=== PATIENT | female | born 1950 | race Hispanic/Latino ===

== ENCOUNTER 2021-01-18 12:41 | Observation (INO) | payer MEDICARE, OTHER ==
--- OUTSIDE RECORDS SUMMARY | 2021-01-18 12:43 | XMS REPORT | Continuity of Care Document ---
:1950 Author Organization [facility] t Address [address] [place] [address] Care Team Providers Name Role Phone Prince CHRISTIANSEN SSheila Primary Care Physician Leon RODNEY Attending Clinician Chong CHRISTIANSEN PhD Attending Clinician Lexie Canas NP Attending Clinician Tram DUBOSE Attending Clinician Unavailable Homer BEARD Attending Clinician Unavailable Kosta RPHomar Attending Clinician Unavailable Provider Attending Clinician Unavailable Prince CHRISTIANSEN SSheila Attending Clinician Tim DUBOSE Attending Clinician Unavailable Collins BLANCO Attending Clinician Pob, Lab Main Attending Clinician Unavailable Doctor Unassigned, Name Attending Clinician Unavailable Payers Payer Name Policy Type Policy Effective Date Expiration Date Sour ce Number [facility] [id number] 2020 [place] MEDICARE(WELLME 00:00:00 Jayy Thornton) A[employer] MEDICARE ADVANTAGE [id number] 07/2020-Present [place] CHAMPVACHAMPVAx [id number] [place] [id number] 00:00:00 [facility] 1-PresentMilibethanie ry Problems Condition Condition Condition Status Onset Resolution Last Treating Co mments Source Name Details Category Date Date Treatment Clinician Date On On Disease Active [place] antineopla antineopla 01-12 Me thodi stic stic 00:00: st chemothera chemothera 00 py py Constipati Constipati Disease Active [place] on on 01-12 Methodi 00:00: st 00 Cholangioc Cholangioc Disease Active [facility] [place] arcinoma arcinoma 11-15 Method i 00:00: st 00 Allergies, Adverse Reactions, Alerts Allergy Allergy Status Severity Reaction(s) Onset Inactive Treating Comm ents Source Name Type Date Date Clinician Sulfa Propensi Active Rash [place] (Sulfona ty to 10-14 Methodi mide adverse 00:00: st Antibiot reaction 00 ics) s to drug Social History Social Habit Start Date Stop Date Quantity Comments Source History SDOH [place] Meth odist Alcohol Std Drinks History SDOH [place] [facility] Alcohol Binge Exposure to Not sure [place] Metho dist SARS-CoV-2 (event) Tobacco use and 2021-01-16 2021-01-16 Never used Eduardo Head ethodist exposure 00:00:00 00:00:00 Alcohol intake 2021-01-16 2021-01-16 Lifetime [facility] Me thodist 00:00:00 00:00:00 non-drinker (finding) History SDOH 2020-10-14 2020-10-14 1 [place] Meth odist Alcohol Frequency 00:00:00 00:00:00 Sex [birth year] Eduardo Head ethodist 00:00:00 00:00:00 Smoking Status Start Date Stop Date Source [facility] Ordered Filled Start Stop Current Ordering Indication Dosage Frequency Signature Comments Components Source Medication Medication Date Date Medication? Clinician (SIG) Name Name traMADoL 2020- No acute pain 50mg Q8H Take 50 mg [facility] (ULTRAM) 50 01-16 by mouth Met hodi mg tablet 14:00: 00:[address] 05 :00 (eight) hours as needed for moderate pain .acute pain. ciprofloxac 2020- Yes Urinary 500mg Q.5D Take 1 [facility] in (Cipro) 01-16 tract tablet Metho di 500 MG 00:00: 23:59 infection ([address] tablet 00 :00 without total) by hematuria, mouth 2 site (two) unspecified times a day for 7 days. lactulose Yes 20g Q.5D Take 30 mL [place] 20 gram/30 6-29 (20 g Methodi mL solution 00:00: total) by s t 00 mouth 2 (two) times a day. sennosides- 2020- No 1{tbl} QD Take 1 [place] docusate 6-29 06-29 tablet by Metho di sodium 00:00: 00:[address] (Senna with 00 :00 daily. Docusate Sodium) 8.6-50 mg per tablet levothyroxi Yes 88ug QD Take 88 [place] st[place] ne 6-16 mcg by Methodi (SYNTHROID) 17:09: mouth st 88 mcg 12 every tablet morning. acetaminoph Yes 500mg Q6H Take 500 [place] en 6-16 mg by [facility] (TYLENOL) 17:09: mouth st 500 MG 12 every 6 tablet (six) hours as needed for mild pain. docusate Yes 100mg Take 100 [place] sodium 100 6-01 mg by [facility] mg capsule 00:00: mouth. st 00 ondansetron Yes Cholangioca 8mg Q8H Take 1 [facility] ODT 5-20 rcinoma tablet (8 Method[facility] (ZOFRAN-ODT 00:00: (HCC) mg total) st ) 8 MG 00 by mouth disintegrat every 8 ing tablet (eight) hours as needed for nausea or vomiting. dexamethaso 2020- No Cholangioca Take 2 [facility] ne 5-20 06-13 rcinoma tablets by Metho di (DECADRON) 00:00: 23:59 (HCC) mouth st 4 MG tablet 00 :00 daily with food for 3 days after each chemothera py Vital Signs Vital Name Observation Time Observation Value Comments Source Body height 2021-01-16 13:57:00 154.9 cm Eduardo Hope Body weight 2021-01-16 13:57:00 66.225 kg Eduardo Hope BMI 2021-01-16 13:57:00 27.59 kg/m2 Eduardo Hope Systolic blood 2021-01-12 10:30:00 142 mm[Hg] Celia Hope pressure Diastolic blood 2021-01-12 10:30:00 65 mm[Hg] Marisa on [facility] pressure Heart rate 2021-01-12 10:30:00 70 /min Eduardo Hope Body temperature 2021-01-12 10:30:00 36 Marilyn Mary Grace blevins [facility] Respiratory rate 2021-01-12 10:30:00 20 /min Mary Grace blveins [facility] Oxygen saturation in 2021-01-12 10:30:00 98 /min Eduardo Hope Arterial blood by Pulse oximetry Procedures Procedure Date / Time Performing Clinician Source Performed COMPREHENSIVE METABOLIC 2021-01-12 10:53:00 Emeka Magaña [facility] PANEL HC COMPLETE BLD COUNT 2021-01-12 10:53:00 Emeka Magaña on [facility] W/AUTO DIFF MAGNESIUM LEVEL 2021-01-12 10:53:00 Emeka Magaña [facility]odist ESTIMATED GFR 2021-01-12 10:53:00 Emeka Magaña [facility] COMPREHENSIVE METABOLIC 2020-12-28 10:33:00 Emeka Magaña [facility] PANEL HC COMPLETE BLD COUNT 2020-12-28 10:33:00 Emeka Magaña on [facility] W/AUTO DIFF MAGNESIUM LEVEL 2020-12-28 10:33:00 Emeka Magaña Met hodist ESTIMATED GFR 2020-12-28 10:33:00 Emeka Magaña Met [facility]odist IR PORT PLACEMENT 2020-12-25 10:53:00 Emeka Magaña ethodist CANCER ANTIGEN 19-9 2020-12-22 14:35:00 Emeka Magaña CARCINOEMBRYONIC ANTIGEN 2020-12-22 14:35:00 Emeka Magaña (CEA) CT CHEST W CONTRAST 2020-11-26 13:04:00 Emeka Magaña HC COMPLETE BLD COUNT 2020-11-26 10:50:00 Emeka Magaña on [facility] W/AUTO DIFF COMPREHENSIVE METABOLIC 2020-11-26 10:50:00 Emeka Magaña [facility] PANEL PROTHROMBIN TIME WITH INR 2020-11-26 10:50:00 Emeka Magaña PARTIAL THROMBOPLASTIN TIME 2020-11-26 10:50:00 Emeka Magaña (PTT) ESTIMATED GFR 2020-11-26 10:50:00 Emeka Magaña Met [facility]ulu SURGICAL PATHOLOGY REQUEST 2020-10-14 13:48:00 Neto Morrison US LIVER BIOPSY 2020-10-14 12:41:00 Neto Morrison Nd [facility]odist CYTOLOGY 2020-10-14 12:00:00 Neto Morrison [facility] (NON-GYNECOLOGICAL) REQUEST MRI ABD/PELVIC EXTERNAL 2020-10-05 00:00:00 Neto Morrison STUDY MRI ABD/PELVIC EXTERNAL 2020-06-18 09:07:00 Neto Morrison STUDY Plan of Care Planned Activity Planned Date Details Comments Source Future Scheduled 2021-02-07 INFLUENZA VACCINE [place] [facility] Test 00:00:00 [code = INFLUENZA VACCINE] Future Scheduled 1998 BREAST CANCER [facility] N[facility] Test 00:00:00 SCREENING [code = BREAST CANCER SCREENING] Future Scheduled 1998 COLONOSCOPY SCREENING [place] [facility] Test 00:00:00 [code = COLONOSCOPY SCREENING] Future Scheduled 1998 SHINGLES VACCINES (#1) [place] [facility] Test 00:00:00 [code = SHINGLES VACCINES (#1)] Future Scheduled 1966 Hepatitis C screening [place] [facility] Test 00:00:00 (procedure) [code = 015239934] Future Scheduled 1960 COVID-19 VACCINE (1) [place] [facility] Test 00:00:00 [code = COVID-19 VACCINE (1)] Future Scheduled 1954 65+ PNEUMOCOCCAL [facility] Test 00:00:00 VACCINE (1 of 2 - PPSV23) [code = 65+ PNEUMOCOCCAL VACCINE (1 of 2 - PPSV23)] Encounters Start End Encounter Admission Attending Care Care Encounter Source Date/Time Date/Time Type Type Clinicians Facility Department ID 2021-01-16 2021-01-16 Outpatient [facility] [id number] [place] 00:00:00 00:00:[address] 2021-01-12 2021-01-12 Outpatient CHONG [facility] [id number] [place] 00:00:00 00:00:00 MACHERI [address] 2020-12-28 2020-12-28 Outpatient ABDELRAHIM, [facility] [id number] [place] 00:00:00 00:00:00 MACHERI [address] 2020-12-25 2020-12-25 Outpatient ABDELRAHIM, [facility] [id number] [place] 00:00:00 00:00:00 EMEKA [address] 2020-12-22 2020-12-22 Outpatient ABDELRAHIM, [facility] [id number] [place] 00:00:00 00:00:00 EMEKA [address] 2020-12-22 2020-12-22 Outpatient ABDELRAHIM, [facility] [id number] [place] 00:00:00 00:00:00 EMEKA [address] 2020-12-14 2020-12-14 Outpatient ABDELRAHIM, [facility] [id number] [place] 00:00:00 00:00:00 EMEKA [address] 2020-11-26 2020-11-26 Outpatient ABDELRAHIM, [facility] [id number] [place] 00:00:00 00:00:00 EMEKA [address] 2020-11-26 2020-11-26 Outpatient ABDELRAHIM, [facility] [id number] [place] 00:00:00 00:00:00 EMEKA [address] 2020-11-12 2020-11-12 Outpatient ABDELRAHIM, [facility] [id number] [place] 00:00:00 00:00:00 EMEKA [address] 2020-11-03 2020-11-03 Outpatient GALATI, [facility] [id number] [place] 00:00:00 00:00:00 NETO [address] 2020-10-14 2020-10-14 Outpatient GALATI, [facility] [id number] [place] 00:00:00 00:00:00 NETO [address] 2020-08-13 2020-08-13 Outpatient GALATI, [facility] [id number] [place] 00:00:00 00:00:00 NETO [address] 2019-09-22 2019-09-22 Telephone Collins MAGENET [id number] 00:00:00 00:00:00 [facility] [id number] Surgical [id number] Specialti [id number] es 370 [place] 2019-09-21 2019-09-21 Urgent Collins MAGENET [id number] 17:16:48 17:31:48 Care [facility] [id number] Surgical [id number] Specialti [id number] es 370 [place] 2019-08-02 2019-08-02 Yarder Puncher Cali Boateng [facility] [id number] 08:09:06 08:24:06 Visit Lab Main [place] [id number] [place] [id number] Professio [id number] [address] 2019-08-02 2019-08-02 Orders Doctor MONIQUE [id number] 00:00:00 00:00:00 Only Unassigned, KATARZYNA [id number] [place] [facility] [id number] [id number] Results Test Test Test Results Result Source Description Time Comments Comments IR Port 2020-12- [facility] Results Incoming - Method ist 13:44:37 12/25/2020 1:47 PM CDT EXAMINATION: IR PORT PLACEMENTCLINICAL HISTORY: C22.1 Intrahepatic bile duct carcinoma, Chemo treatmentCOMPARISON: None.PROCEDURE: Venous port placementProcedural PersonnelAttending physician(s): Yasir Huffman, MOUNIKAre-procedure diagnosis: Intrahepatic cholangiocarcinomaPost-pro cedure diagnosis: SameIndication: Administration of chemotherapyAdditional clinical history: Prior Right mastectomy and axillary lymph node dissection.Complications: No immediate complications.IMPRESSION: Insertion of left-sided power-injectable single-lumen tunneled chest port, with catheter tip in the expected location of the cavoatrial junction.Plan: The port may be used immediately. PROCEDURE SUMMARY:- Venous access with ultrasound guidance- Tunneled port insertion under fluoroscopic guidance- Additional procedure(s): NonePre-procedureHistory and imaging of central venous access reviewed (QCDR): Yes Consent: Informed consent for the procedure including risks, benefits and alternatives was obtained and time-out was performed prior to the procedure.Preparation (MIPS): The site was prepared and draped using all elements of maximal sterile barrier technique including sterile gloves, sterile gown, cap, mask, large sterile sheet, sterile ultrasound probe cover, hand hygiene and cutaneous antisepsis with 2% chlorhexidine. Medical reason for site preparation exception (MIPS): Not applicableAnesthesia/sedat ionLevel of anesthesia/sedation: Moderate sedation (conscious sedation)Anesthesia/sedati on administered by: Independent trained observer under attending supervision with continuous monitoring of the patients level of consciousness and physiologic statusTotal intra-service sedation time (minutes): 32AccessLocal anesthesia was administered. The vessel was sonographically evaluated and determined to be patent. Real time ultrasound was used to visualize needle entry into the vessel and a permanent image was not stored.Vein accessed: Internal jugular veinAccess technique: Micropuncture set with 21 gauge needlePort placementAn incision was made at the upper chest, a pocket was created, and the catheter was tunneled subcutaneously to the venous access site and trimmed to appropriate length. The port was inserted into the pocket and the catheter was advanced via a peel-away sheath into the vein under fluoroscopic guidance. The port was not sutured into the pocket. Catheter tip location was fluoroscopically verified and a permanent image was stored.Port placed: Angi[employer] SmartPortCatheter size (Yi): 8Catheter flush: Heparin (100 units/mL)ClosureThe access site and incision were closed and sterile dressing(s) were applied.Access site closure technique: Tissue adhesiveIncision closure technique: Absorbable suture and tissue adhesivePatient discharged from procedure suite with device accessed: NoContrastContrast agent: NoneContrast volume (mL): 0Radiation DoseReference air kerma (mGy): 6 Additional DetailsAdditional description of procedure: NoneEquipment details: NoneSpecimens removed: NoneEstimated blood loss (mL): Less than 10Standardized report: [id number] CT Chest W 2020-11- [facility], Radiology Homar talamantes Contrast 20 Results Incoming - Method ist 13:54:07 11/26/2020 1:57 PM CDT EXAMINATION: CT CHEST W CONTRASTCLINICAL HISTORY: C22.1 Intrahepatic bile duct carcinoma, stagingTECHNIQUE: Multiple axial images of the chest were obtained following intravenous administration of iodinated contrast. CT imaging was performed with iterative reconstruction technique and/or automated exposure control to reduce radiation dose.COMPARISON: None available.FINDINGS:Lungs and airways: No acute airspace disease. There is a 2 mm nodule in the left lower lobe (series 2, image 82). Pleura: No pleural effusion or pneumothorax.Mediastinum and lymph nodes: No lymphadenopathy. Cardiovascular: Scattered vascular calcifications.Upper abdomen: Moderate biliary ductal dilation in the left hepatic lobe. Ill-defined hypodense lesion in the left hepatic lobe compatible with known cholangiocarcinoma.Musculo skeletal: No suspicious osseous lesions. Right mastectomy and axillary node dissection.IMPRESSION:1.In determinate 2 mm left lower lobe nodule.2.No other evidence to suggest metastatic disease in the chest.3.Ill-defined hypodense left hepatic mass compatible with known cholangiocarcinoma, with moderate upstream biliary ductal dilation.[facility]-[id number] tated and approved by director of residential services/fellow: Rivas German M.D.I, Toi Zapata MD, personally reviewed the images and resident's/fellow's findings and agree with the final report. MRI Abd/Pelvic 2020-10- This exam was not acquired [place] [address] at a [facility] facility [facility] 10:15:37 and has not been interpreted by a [facility] Provider. The exam was imported into our imaging system. Cytology (non-gynecological) request 2020-10-15 12:20:51 Test Item Value Reference Range Interpretation Comme nts Case number (test code = [id number]) [id number] Cytology (non-gynecological) report (test See link below for PDF La b Report code = 1178) Result status (test code = [id number]) This is Final Report for [id number] 1564-2 [facility] [id number] 11:28:57 Test Item Value Reference Range Interpretation Comments Case number (test code = [id number]) Surgical pathology See link below for report (test code = PDF Lab Report 2255) Result status (test code This is Final Report = [id number]) for [id number] Eduardo Atkinson Liver [id number] 18:36:11Hm Interface, Radiology Results Incoming - 10/14/2020 6:39 PM CDTFormatting of this note might be di fferent from the original.PROCEDURE: Image-guided biopsyProcedural PersonnelAttending physician(s): Anuj CastanonPre-procedure diagnosis: Ill- defined left hepatic massPost-procedure diagnosis: SameIndication: Histopathologic diagnosisPrevious biopsy of same target (QCDR): NoAdditional clinical history:NoneComplications: No immediate complications.IMPRESSION:Technically challenging but ultimately successful ultrasound guided biopsy of of an ill-defined left hepatic mass.Plan: Specimen(s) sent for eval uation. PROCEDURE SUMMARY:- Percutaneous ultrasound-guided coaxial core needle biopsy- Additional procedure(s): NonePROCEDURE DETAILS:Pre-procedureReference imaging for biopsy target: MRI abdomen dated 06/18/2020 series 17 image 8Consent: Informed consent for the procedure including risks, benefits and alternatives was obtained and time-out was performed prior to the procedure.Preparation: The site was prepared and draped using maximal sterile barrier technique including cutaneous antisepsis.Anesthesia/sedationLevel of anesthesia/sedation: Moderate sedation (conscious sedation)Anesthesia/sedation administered by: Independent trained observer under attending supervision with continuous monitoring of the patients level of consciousness and physiologic statusTotal intra-service sedation time (minutes): 24Biopsy Local anesthesia was administered. Under imaging guidance as stated in the procedure summary, the biopsy needle was advanced tothe target and biopsy was performed.Coaxial needle: 17 gaugeCore needle biopsy device: Elite Meetings InternationalCore needle size: 18 gaugeNumber of core specimens: 3Fine needle aspiration device: Not applicableFineneedle size: Not applicableNumber of FNA specimens: Not applicableOn-site biopsy touch preparation: Yes Additional sampling recommendations: NonePreliminary assessment of sample adequacy: AdequateNeedle removalThe biopsy needle was removed and a sterile dressing was applied.Tract embolization: Gelfoam slurryContrastContrast agent: NoneContrast volume (mL): 0Radiation DoseNone Additional DetailsAdditional description of procedure: NoneEquipment details: NoneSpecimens removed: Biopsy samples as detailed aboveEstimated blood loss (mL): Less than 10Standardized report: [email or web address] name: Anuj Castanon M.D.I attest that I was present for the entire procedure. I reviewed the stored images and agree with the report as written.[id number] [facility]
--- NOTE | 2021-01-18 15:53 | RAD REPORT ---
EXAM DESCRIPTION: US - Extremity Venous Uni Ltd - 01/18/2021 3:12 pm CLINICAL HISTORY: PAIN COMPARISON: None. TECHNIQUE: Real-time sonographic evaluation of the left lower extremity deep venous system was perfo rmed. FINDINGS: Normal compressibility, flow augmentation, phasic flow and spontaneous flow are identified in the left lower extremity common femoral and superficial femoral veins. Thrombus is present in the left popliteal vein with diminished or absent compression and left posterior tibial vein. No suspici ous finding in the soft tissues of the left leg. IMPRESSION: Acute left leg deep venous thrombosis from popliteal vein at the knee distally to the po sterior tibial vein at the ankle.
[2021-01-18 16:33] LABS: Absolute Lymphocytes (CBC) 1.4 K/uL (0.7-4.9); Basophils % 2.1 % (0-1.3); Hematocrit 30.9 % (36.0-45.0); Lymphocytes % 65.6 % (15.3-44.8); MPV 10.7 fL (7.6-11.3)
[2021-01-18 16:48] LABS: Protime INR 0.94
[2021-01-18 16:52] LABS: ALT/SGPT 40 U/L (12-78); AST/SGOT 24 U/L (15-37); Albumin 3.2 g/dL (3.4-5.0); Alkaline Phosphatase 85 U/L (45-117); BUN Blood Urea Nitrogen 11 mg/dL (7-18); Bicarbonate 27 mmol/L (21-32); Bilirubin Direct < 0.1 mg/dL (0-0.2); Bilirubin Total 0.3 mg/dL (0.2-1.0); Glucose Level 90 mg/dL (74-106); Protein, Total 6.9 g/dL (6.4-8.2); Sodium Level 137 mmol/L (136-145)
[2021-01-18] MEDS ORDERED: ENOXAPARIN 60 MG/0.6 ML SQ ONE (17:24)
--- NOTE | 2021-01-18 17:45 | RAD REPORT ---
EXAM DESCRIPTION: CT - Chest For Pe Angio - 01/18/2021 5:21 pm CLINICAL HISTORY: SOB COMPARISON: No comparisons TECHNIQUE: Dynamically enhanced 3 mm thick images of the chest were obtained during administration o f approximately 150mL Isovue 370 IV contrast. Coronal and oblique MIP reconstruction images were gene rated and reviewed. Exam utilizes a protocol to evaluate the pulmonary arterial tree. All CT scans are performed using dose optimization technique as appropriate and may include automated exposure control or mA/KV adjustment according to patient size. FINDINGS: No pulmonary emboli are identified. The aorta as imaged shows no acute or suspicious finding. No pericardial thickening or effusion. No infiltrate or mass in the lung parenchyma. No pleural effusion or pleural thickening. No mediastinal or hilar suspicious masses. No chest wall masses or abnormal axillary lymphadenopathy. IMPRESSION: No pulmonary emboli identified. No other significant or suspicious findings.
--- NOTE | 2021-01-18 18:43 | EDPHYS ---
Physician Documentation [facility] Name: Simona Klein Age: 70 yrs Sex: Female : 1950 Arrival Date: 01/18/2021 Time: 12:42 Bed 25 Private MD: ED Physician Wesley Martinez HPI: 01/18 14:16 This 70 yrs old Female presents to ER via Wheelchair with complaints of Leg pm1 Pain. 14:16 The patient presents with pain, that is acute. The complaints affect the left calf. pm1 Context: The problem was sustained at home, resulted from an unknown cause, the patient can fully bear weight, the patient is able to ambulate, Problem is a result from a previous injury: No. Onset: The symptoms/episode began/occurred 3 day(s) ago. Modifying factors: The symptoms are alleviated by nothing. the symptoms are aggravated by movement. Associated signs and symptoms: Pertinent positives: calf tenderness, Pertinent negatives fever, numbness, swelling, tingling, warmth. Treatment prior to arrival includes: no previous treatment. Severity of symptoms: in the emergency department the symptoms are unchanged. The patient has not experienced similar symptoms in the past. Historical: - Allergies: 12:52 Sulfa (Sulfonamide Antibiotics); ca1 - PMHx: 12:52 Cancer; Hypothyroidism; ca1 - PSHx: 12:52 mastectomy; ca1 - Immunization history:: Client reports having NOT received the Covid vaccine. Pneumococcal vaccine is up to date, Flu vaccine is not up to date. - Social history:: Smoking status: Patient denies any tobacco usage or history of. ROS: 14:16 Constitutional: Negative for fever, chills, and weight loss. pm1 14:16 Cardiovascular: Negative for chest pain, palpitations, and edema, Respiratory: Negative for shortness of breath, cough, wheezing, and pleuritic chest pain. 14:16 Skin: Negative for injury, rash, and discoloration, Neuro: Negative for headache, weakness, numbness, tingling, and seizure. 14:16 MS/extremity: Positive for pain, of the left calf, Negative for injury or acute deformity, decreased range of motion, deformity. 14:16 All other systems are negative. Exam: 14:16 Constitutional: This is a well developed, well nourished patient who is awake, alert, pm1 and in no acute distress. Head/Face: Normocephalic, atraumatic. 14:16 Skin: Warm, dry with normal turgor. Normal color with no rashes, no lesions, and no evidence of cellulitis. 14:16 Eyes: Exam is negative for acute changes, Periorbital structures: appear normal, Extraocular movements: intact throughout, Conjunctiva: no acute changes, no injection. 14:16 ENT: Mouth: Lips: normal, Oral mucosa: normal, pink and intact, moist. 14:16 Cardiovascular: Rate: normal, Rhythm: regular, Pulses: no pulse deficits are appreciated, Edema: is not appreciated. 14:16 Respiratory: Exam negative for acute changes, respiratory distress, shortness of breath. 14:16 Abdomen/GI: Inspection: abdomen appears normal, Palpation: abdomen is soft and non-tender, in all quadrants. 14:16 Musculoskeletal/extremity: Extremities: grossly normal except: DVT Exam: no swelling, no appreciated bluish discoloration, no erythema, no increased warmth, pain, tenderness. Vital Signs: 12:50 BP 136 / 65; Pulse 80; Resp 17 S; Temp 97.3(TE); Pulse Ox 100% on R/A; Weight 64.86 kg ca1 (R); Height 5 ft. 1 in. (154.94 cm) (R); Pain 9/10; 14:02 BP 110 / 88; Pulse 76; Resp 17; Pulse Ox 100% ; ld1 14:37 BP 108 / 82; Pulse 92; Resp 17; Pulse Ox 99% on R/A; ld1 15:38 BP 127 / 62; Pulse 76; Resp 18; Pulse Ox 100% on R/A; ld1 16:30 BP 138 / 107; Pulse 82; Resp 18; Pulse Ox 100% ; ld1 17:30 BP 133 / 73; Pulse 71; Resp 18; Pulse Ox 100% ; ld1 18:32 BP 144 / 66; Pulse 71; Resp 18; Pulse Ox 100% ; ld1 12:50 Body Mass Index 27.02 (64.86 kg, 154.94 cm) ca1 MDM: 13:56 Patient medically screened. pm1 14:05 ED course: Patient refused pain medications offered. pm1 14:23 Data reviewed: vital signs. Data interpreted: Pulse oximetry: on room air is 100 %. pm1 Interpretation: normal. 15:52 Counseling: I had a detailed discussion with the patient and/or guardian regarding: pm1 radiology results. 16:04 Physician consultation: Emeka Magaña was called at 16:00. pm1 18:38 Physician consultation: Emeka Magaña was contacted at 18:35, regarding consult, pm1 patient's condition, wants the patient to have Lovenox treatment now and observation admission to ensure stability and no development of shortness of breath or PE. When she is discharged would like her to be discharged with Lovenox and will follow up with her. 19:12 Physician consultation: Serafin Brown MD was called at 19:12, was contacted at 19:12, pm1 regarding admission, patient's condition, and will see patient tomorrow, would like medications started, continue lovenox and cipro. Ativan PRN. 01/18 15:45 Order name: CBC with Diff; Complete Time: 19:42 pm1 01/18 15:45 Order name: BMP; Complete Time: 16:57 pm1 01/18 15:45 Order name: LFT's; Complete Time: 16:57 pm1 01/18 15:45 Order name: PT-INR; Complete Time: 16:57 pm1 01/18 19:11 Order name: COVID-19 : Document "Date of Symptom Onset" if Symptomatic. 2 01/18 14:05 Order name: Extremity Venous Uni Ltd US; Complete Time: 15:56 pm1 01/18 16:58 Order name: CT Chest For PE Angio; Complete Time: 17:59 pm1 01/18 19:41 Order name: CBC Smear Scan; Complete Time: 19:42 EDMS 01/18 21:31 Order name: SARS-COV-2 RT PCR; Complete Time: 22:43 EDMS 01/18 15:45 Order name: IV Saline Lock; Complete Time: 16:32 pm1 01/18 16:07 Order name: EKG; Complete Time: 16:07 pm1 01/18 16:07 Order name: EKG - Nurse/Tech; Complete Time: 17:02 pm1 Administered Medications: 17:06 Drug: Lovenox (enoxaparin) 1 mg/kg Route: Sub-Q; Site: abdomen; ld1 18:49 Not Given (Patient Refused): Ativan (LORazepam) 0.5 mg IVP once ld1 19:58 Drug: Potassium Effervescent Tablet 50 mEq Route: PO; ld1 21:23 CANCELLED (Physician Discretion): Zofran (Ondansetron) 4 mg IVP once; over 2 minutes pm1 21:36 Drug: Ativan (LORazepam) 0.5 mg Route: PO; ld1 21:36 Drug: Zofran (Ondansetron) 4 mg Route: PO; ld1 Disposition: 01/19 06:59 Co-signature as Attending Physician, Wesley Martinez MD. rn Disposition Summary: 01/18/21 18:42 Hospitalization Ordered Hospitalization Status: Observation pm1 Location: Telemetry/MedSurg (observation) pm1 Condition: Stable pm1 Problem: new pm1 Symptoms: have improved pm1 Bed/Room Type: Standard pm1 Provider: Serafin Brown(01/18/21 19:13) pm1 Room Assignment: [facility](01/18/21 21:05) Diagnosis - Acute embolism and thrombosis of other specified deep vein of left lower extremity pm1 Forms: - Medication Reconciliation Form pm1 - SBAR form pm1 Signatures: Dispatcher [employer] EDWesley De Jesus MD MD rn Garcia, Cindy, RN RN cg Heriberto Hernandez NP INDUSTRIAL SPECIALIST pm1 Christina Gonzalez RN RN ca1 Andie Curran RN RN ld1 Corrections: (The following items were deleted from the chart) 01/18 12:54 12:52 Allergies: No Known Allergies; ca1 ca1 15:55 14:16 Musculoskeletal/extremity: Extremities: grossly normal except: DVT Exam: no pm1 swelling, no appreciated bluish discoloration, no erythema, no increased warmth, pain, tenderness, pm1 19:13 18:42 Teto Martinez pm1 pm1 20:32 19:12 CORONAVIRUS ordered. EDNC EDMS 21:05 18:42 pm1 cg 21:23 21:23 Zofran (Ondansetron) 4 mg IVP once; over 2 minutes ordered. pm1 pm1
--- NOTE | 2021-01-18 18:43 | ER ---
Nurse's Notes [facility] Name: Simona Klein Age: 70 yrs Sex: Female : 1950 Arrival Date: 01/18/2021 Time: 12:42 Bed 25 Private MD: Diagnosis: Acute embolism and thrombosis of other specified deep vein of left lower extremity Presentation: 01/18 12:50 Chief complaint: Patient states: L leg pain x 2 - 3 days. Denies injury. Pain on L calf ca1 and L ankle. Coronavirus screen: Client denies travel out of the [place] in the last 14 days. At this time, the client does not indicate any symptoms associated with coronavirus-19. Ebola Screen: Patient negative for fever greater than or equal to 101.5 degrees Fahrenheit, and additional compatible Ebola Virus Disease symptoms Patient denies exposure to infectious person. Patient denies travel to an Ebola-affected area in the 21 days before illness onset. No symptoms or risks identified at this time. Initial Sepsis Screen: Does the patient meet any 2 criteria? No. Patient's initial sepsis screen is negative. Does the patient have a suspected source of infection? No. Patient's initial sepsis screen is negative. Risk Assessment: Do you want to hurt yourself or someone else? Patient reports no desire to harm self or others. Onset of symptoms was January 18, 2021. 12:50 Method Of Arrival: Wheelchair ca1 12:50 Acuity: CHANEL 3 ca1 Historical: - Allergies: 12:52 Sulfa (Sulfonamide Antibiotics); ca1 - PMHx: 12:52 Cancer; Hypothyroidism; ca1 - PSHx: 12:52 mastectomy; ca1 - Immunization history:: Client reports having NOT received the Covid vaccine. Pneumococcal vaccine is up to date, Flu vaccine is not up to date. - Social history:: Smoking status: Patient denies any tobacco usage or history of. Screenin:02 Abuse screen: Denies threats or abuse. Denies injuries from another. Nutritional ld1 screening: No deficits noted. Tuberculosis screening: No symptoms or risk factors identified. Fall Risk None identified. Assessment: 14:02 General: Appears in no apparent distress. uncomfortable, Behavior is calm, cooperative, ld1 appropriate for age. Pain: Complains of pain in left leg Pain does not radiate. Pain currently is 7 out of 10 on a pain scale. Quality of pain is described as burning, throbbing, Pain began 1 day ago. Is continuous. Neuro: Level of Consciousness is awake, alert, obeys commands, Oriented to person, place, time, situation, Appropriate for age. Cardiovascular: Capillary refill < 3 seconds Patient's skin is warm and dry. Respiratory: Airway is patent Respiratory effort is even, unlabored, Respiratory pattern is regular, symmetrical. GI: Abdomen is flat, non-distended. : No signs and/or symptoms were reported regarding the genitourinary system. EENT: No signs and/or symptoms were reported regarding the EENT system. Derm: No signs and/or symptoms reported regarding the dermatologic system. Musculoskeletal: No signs and/or symptoms reported regarding the musculoskeletal system. 14:37 Reassessment: Patient appears in no apparent distress at this time. No changes from ld1 previously documented assessment. Patient and/or family updated on plan of care and expected duration. Pain level reassessed. Patient is alert, oriented x 3, equal unlabored respirations, skin warm/dry/pink. 15:37 Reassessment: Patient appears in no apparent distress at this time. Patient and/or ld1 family updated on plan of care and expected duration. Pain level reassessed. Patient is alert, oriented x 3, equal unlabored respirations, skin warm/dry/pink. 16:45 Reassessment: Patient appears in no apparent distress at this time. No changes from ld1 previously documented assessment. 17:50 Reassessment: Patient appears in no apparent distress at this time. Patient and/or ld1 family updated on plan of care and expected duration. Pain level reassessed. Patient denies pain at this time. 18:31 Reassessment: Patient appears in no apparent distress at this time. No changes from ld1 previously documented assessment. Patient and/or family updated on plan of care and expected duration. Pain level reassessed. Patient is alert, oriented x 3, equal unlabored respirations, skin warm/dry/pink. Vital Signs: 12:50 BP 136 / 65; Pulse 80; Resp 17 S; Temp 97.3(TE); Pulse Ox 100% on R/A; Weight 64.86 kg ca1 (R); Height 5 ft. 1 in. (154.94 cm) (R); Pain 9/10; 14:02 BP 110 / 88; Pulse 76; Resp 17; Pulse Ox 100% ; ld1 14:37 BP 108 / 82; Pulse 92; Resp 17; Pulse Ox 99% on R/A; ld1 15:38 BP 127 / 62; Pulse 76; Resp 18; Pulse Ox 100% on R/A; ld1 16:30 BP 138 / 107; Pulse 82; Resp 18; Pulse Ox 100% ; ld1 17:30 BP 133 / 73; Pulse 71; Resp 18; Pulse Ox 100% ; ld1 18:32 BP 144 / 66; Pulse 71; Resp 18; Pulse Ox 100% ; ld1 12:50 Body Mass Index 27.02 (64.86 kg, 154.94 cm) ca1 ED Course: 12:42 Patient arrived in ED. rg4 12:52 Triage completed. ca1 12:52 Arm band placed on right wrist. ca1 13:54 Heriberto Hernandez NP is PHCP. pm1 13:54 Wesley Martinez MD is Attending Physician. pm1 13:54 Andie Curran RN is Primary Nurse. ld1 14:02 Patient has correct armband on for positive identification. Placed in gown. Bed in low ld1 position. Call light in reach. Side rails up X2. monitor worker on. Pulse ox on. NIBP on. 14:02 No provider procedures requiring assistance completed. ld1 15:12 Extremity Venous Uni Ltd US In Process Unspecified. EDMS 16:32 Accessed Port-a-Cath. using accessed w/ #19 Gonzales needle, ,sterile technique, Clean \T\ ld1 dry. Dressing intact. 17:21 CT Chest For PE Angio In Process Unspecified. EDMS 18:40 Teto Martienz PA is Hospitalizing Provider. pm1 19:13 Hospitalizing Provider role handed off by Teto Martinez PA pm1 19:13 Serafin Brown MD is Hospitalizing Provider. pm1 21:48 Patient admitted, IV remains in place. intact, bleeding controlled, No redness/swelling ld1 at site. Administered Medications: 17:06 Drug: Lovenox (enoxaparin) 1 mg/kg Route: Sub-Q; Site: abdomen; ld1 18:49 Not Given (Patient Refused): Ativan (LORazepam) 0.5 mg IVP once ld1 19:58 Drug: Potassium Effervescent Tablet 50 mEq Route: PO; ld1 21:23 CANCELLED (Physician Discretion): Zofran (Ondansetron) 4 mg IVP once; over 2 minutes pm1 21:36 Drug: Ativan (LORazepam) 0.5 mg Route: PO; ld1 21:36 Drug: Zofran (Ondansetron) 4 mg Route: PO; ld1 Outcome: 18:42 Decision to Hospitalize by Provider. pm1 21:47 Admitted to Med/surg accompanied by tech, via wheelchair, room 223, with chart, Report ld1 called to SEDRICK Waller 21:47 Condition: stable 21:48 Patient left the ED. ld1 Signatures: Dispatcher [employer] EDMS Heriberto Hernandez NP [employer]NER pm1 Mily Root rg4 Christina Gonzalez RN RN ca1 Andie Curran RN RN ld1 Corrections: (The following items were deleted from the chart) 12:52 12:50 Chief complaint: Patient states: L leg pain x 2 - 3 days. Denies injury. Pain on ca1 L calf and L ankle. ca1 12:54 12:52 Allergies: No Known Allergies; ca1 ca1
[2021-01-18 19:41] LABS: Blood Morphology Comment NOT SEEN (NOT SEEN); Platelet Estimate ADEQ; White Blood Cell Scan OK (OK)
[2021-01-18] MEDS ORDERED: POTASSIUM 25 MEQ EFFERV TAB ONE (20:17)
[2021-01-18] MEDS ORDERED: LORAZEPAM 0.5 MG TABLET ONE (21:50)
[2021-01-18] MEDS ORDERED: ONDANSETRON 4 MG (ODT) TAB ONE (21:51)
[2021-01-18] MEDS ORDERED: LORAZEPAM 0.5 MG TABLET PO PRN (22:02)
[2021-01-18 22:32] VITALS: BMI 27.0
[2021-01-18] MEDS: NA CHLORIDE 0.9% 1,000 ML IV SCH (22:46)
[2021-01-19] MEDS: ENOXAPARIN 60 MG/0.6 ML SQ SCH ×2 (05:00→17:00)
[2021-01-19] MEDS: CIPROFLOXACIN HCL 500 MG TAB PO SCH ×2 (05:31→17:27)
[2021-01-19 06:12] LABS: Absolute Lymphocytes (CBC) 1.3 K/uL (0.7-4.9); Basophils % 1.7 % (0-1.3); Hematocrit 27.4 % (36.0-45.0); Lymphocytes % 62.1 % (15.3-44.8); MPV 11.4 fL (7.6-11.3); RBC Red Blood Cell Count 3.14 M/uL (3.86-4.86)
[2021-01-19 06:14] LABS: Potassium 3.6 mmol/L (3.5-5.1)
[2021-01-19 07:21] LABS: Blood Morphology Comment NOT SEEN (NOT SEEN); Platelet Estimate ADEQ
[2021-01-19] MEDS: NA CHLORIDE 0.9% 1,000 ML IV SCH ×2 (08:33→17:29)
[2021-01-19] MEDS ORDERED: BISACODYL E.C. 5 MG TAB PO ONE (11:13)
--- NOTE | 2021-01-19 17:00 | PN ---
Date of Progress Note: 01/19/2021 The patient states she feels much better today. She has minimal leg discomfort and basically no othe r symptoms. Discussion was held in regard to use of anticoagulants from the shots to the pills and l ength of usage. The DVT area is not near as tender, has good flexibility, bear weight. We will disc uss the anticoagulation status with her oncologist later today. Depending on the results, we will eit her switch her to p.o. or continue Lovenox overnight. HR/MODL Voice ID: [id number] Report ID: [id number]
--- NOTE | 2021-01-19 17:01 | HP ---
Date of Admission: 01/18/2021 Entrance Complaint: Painful leg. History Of Present Illness: The patient noticed some leg discomfort and presented to the emergency r oom at which time a DVT was diagnosed on ultrasound. 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 She has had 2 treatments. Has not had prior history of DVT. DICTATION ENDS HERE. HR/MODL Voice ID: [id number]
--- NOTE | 2021-01-19 19:17 | EKG ---
Test Date: 2021-01-18 Test Time: 16:40:45 Intelligence Applications: ERWIN MEASUREMENT RESULTS: Intervals: Rate: 71 MN: 174 QRSD: 86 QT: 380 QTc: 412 [place]: P: 64 MN: 174 QRS: 42 T: 42 INTERPRETIVE STATEMENTS: Normal sinus rhythm Normal ECG Compared to ECG 07/08/2002 15:56:00 Atrial abnormality no longer present Electronically Signed On 01-19-21 19:13:50 CDT by Shahid Jean
--- NOTE | 2021-01-20 00:46 | HP ---
Date of Admission: 01/18/2021 Continuation: Physical Examination: General: Patient is an elderly female, uncomfortable appearing but no acute distress with stable vit al signs. Head and Neck: Normocephalic. Pupils equally reactive to light and accommodation. Fundi negative. Trachea midline. Thyroid not palpable. ENT: Negative. Chest: Clear to P and A. Cardiovascular: PMI in midclavicular line. Heart: Sounds normal. Extremities: Peripheral pulses present and equal bilaterally. Abdomen: No organomegaly. Bowel sounds present. Extremities: Good tone and movement bilaterally. Reflexes physiologic. However, there is marked tenderness in the calf on the left lower leg and incr eased discomfort with flexion to the ankle joint. Rectal/Pelvic: Deferred. Impression: Acute deep venous thrombosis, hepatobiliary carcinoma. Plan: Patient will be admitted. Discussion of the case was made with the oncologist. She was start ed on Lovenox, and depending on the response, this was switched over to the p.o. medication. Patient is slated for other round of chemotherapy in approximately 10 days. HR/MODL Voice ID: [id number]
[2021-01-20] MEDS: ENOXAPARIN 60 MG/0.6 ML SQ SCH (05:00)
[2021-01-20] MEDS: NA CHLORIDE 0.9% 1,000 ML IV SCH ×2 (05:23→13:07)
[2021-01-20] MEDS: CIPROFLOXACIN HCL 500 MG TAB PO SCH (05:23)
[2021-01-20] MEDS ORDERED: DOCUSATE NA 100 MG CAP PO PRN (08:37)
[2021-01-20] MEDS ORDERED: APIXABAN 5 MG TABLET PO SCH (09:00)
[2021-01-20 10:27] VITALS: O2SAT 100
[2021-01-20 16:11] VITALS: BP 148/67; TEMP 97.4
[2021-01-20] MEDS ORDERED: HEPARIN 500 UNIT/5 ML SYR IV PRN (16:42)
--- NOTE | 2021-01-20 21:53 | PN ---
Date of Progress Note: 01/20/2021 The patient is feeling much better. There is minimal discomfort on palpation of the left calf in marisela siflexion. She has tolerated the Eliquis and will discharge on 10 mg b.i.d. Eliquis and follow up in 5 days, which is 1 day prior to her next scheduled chemo. HR/MODL Voice ID: [id number] Report ID: [id number]
== END 2021-01-20 18:00 | disposition home or self-care (01) ==
LOC: ER 12:41 → UNDOADMOB 19:01 → ERHOLD 19:01 → 2ND 21:23
PROVIDERS: ADMIT Family Medicine; ATTEND Family Medicine
DX: I82.4Z2 Acute embolism and thrombosis of unspecified deep veins of left distal lower extremity (principal); C24.9 Malignant neoplasm of biliary tract, unspecified; E03.9 Hypothyroidism, unspecified; Z88.2 Allergy status to sulfonamides; Z85.9 Personal history of malignant neoplasm, unspecified; Z90.10 Acquired absence of unspecified breast and nipple; Z20.822 Contact with and (suspected) exposure to COVID-19
CPT/HCPCS: 93005; 85025 ×2; 80048 ×2; 36415; 85610; 80076; 71275; 93971; U0003; Q9967; J1650 ×4; J1642; J7030 ×4; 96372; 99285; G0378

== ENCOUNTER 2021-01-22 10:58 | Emergency (ER) | payer MEDICARE, OTHER ==
--- OUTSIDE RECORDS SUMMARY | 2021-01-22 11:04 | XMS REPORT | Continuity of Care Document ---
:[address] [facility] t Address [address] [place] [address] Care Team Providers Name Role Phone Prince [...] Effective Date Expiration Date Sour ce Number [facility] [id number] 2020 [place] MEDICARE(WELLME 00:00:00 Jayy Thornton) AARP MEDICARE ADVANTAGE [id number] 07/2020-Present [place] CHAMPVACHAMPVAx [id number] 2020 [place] [id number] 00:00:00 [facility] 1-PresentMilibethanie ry Problems Condition Condition Condition Status Onset Resolution Last Treating Co mments Source Name Details Category Date Date Treatment Clinician Date On On Disease Active [place] antineopla antineopla 01-12 Me thodi stic stic [...] Date Date Clinician Sulfa Propensi Active Rash [place] (Sulfona ty to 10-14 Methodi mide adverse 00:00: st Antibiot reaction 00 ics) s to drug Social History Social Habit Start Date Stop Date Quantity Comments Source History SDOH [place] Meth odist Alcohol Std Drinks History SDOH [place] [facility] Alcohol Binge Exposure to Not sure [place] [facility] SARS-CoV-2 (event) Tobacco use and 2021-01-16 2021-01-16 Never used Eduardo Head ethodist exposure 00:00:00 00:00:00 Alcohol intake 2021-01-16 2021-01-16 Lifetime [facility] 00:00:00 00:00:00 non-drinker (finding) History SDOH 2020-10-14 2020-10-14 1 [place] [facility] Alcohol Frequency 00:00:00 00:00:00 Sex [birth year] At [birth year] Eduardo Head ethodist 00:00:00 00:00:00 Smoking Status Start Date Stop Date Source [facility] Ordered Filled Start Stop [...] blood 2021-01-12 10:30:00 65 mm[Hg] Marisa on [facility] pressure Heart rate 2021-01-12 10:30:00 70 /min Eduardo Hope Body temperature 2021-01-12 10:30:00 36 Marilyn Mary Grace blevins [facility] Respiratory rate 2021-01-12 10:30:00 20 /min Mary Grace blevins [facility] Oxygen saturation in 2021-01-12 10:30:00 98 /min Eduardo Hope Arterial blood by Pulse oximetry Procedures Procedure Date / Time Performing Clinician Source Performed COMPREHENSIVE METABOLIC 2021-01-12 10:53:00 Emeka Magaña [facility] PANEL HC COMPLETE BLD COUNT 2021-01-12 10:53:00 Emeka Magaña on [facility] W/AUTO DIFF MAGNESIUM LEVEL 2021-01-12 10:53:00 Emeka Magaña [facility] ESTIMATED GFR 2021-01-12 10:53:00 Emeka Magaña [facility] COMPREHENSIVE METABOLIC 2020-12-28 10:33:00 Emeka Magaña [facility] PANEL HC COMPLETE BLD COUNT 2020-12-28 10:33:00 Emeka Magaña on [facility] W/AUTO DIFF MAGNESIUM LEVEL 2020-12-28 10:33:00 Emeka Magaña [facility] ESTIMATED GFR 2020-12-28 10:33:00 Emeka Magaña [facility] IR PORT PLACEMENT 2020-12-25 10:53:00 Emeka Magaña ethodist CANCER ANTIGEN 19-9 2020-12-22 14:35:00 Emeka Magaña CARCINOEMBRYONIC ANTIGEN 2020-12-22 14:35:00 Emeka Magaña (CEA) CT CHEST W CONTRAST 2020-11-26 13:04:00 Emeka Magaña HC COMPLETE BLD COUNT 2020-11-26 10:50:00 Emeka Magaña on [facility] W/AUTO DIFF COMPREHENSIVE METABOLIC 2020-11-26 10:50:00 Emeka Magaña [facility] PANEL PROTHROMBIN TIME WITH INR 2020-11-26 10:50:00 Emeka Magaña PARTIAL THROMBOPLASTIN TIME 2020-11-26 10:50:00 Emeka Magaña (PTT) ESTIMATED GFR 2020-11-26 10:50:00 Emeka Magaña [facility] SURGICAL PATHOLOGY REQUEST 2020-10-14 13:48:00 Neto Morrison US LIVER BIOPSY 2020-10-14 12:41:00 Neto Morrison [facility] CYTOLOGY 2020-10-14 12:00:00 Neto Morrison [facility] (NON-GYNECOLOGICAL) REQUEST MRI ABD/PELVIC EXTERNAL 2020-10-05 00:00:00 Neto Morrison STUDY MRI ABD/PELVIC EXTERNAL 2020-06-18 09:07:00 Neto Morrison STUDY Plan of Care Planned Activity Planned Date Details Comments Source Future Scheduled 2021-02-07 INFLUENZA VACCINE [place] [facility] Test 00:00:00 [code = INFLUENZA VACCINE] Future Scheduled 1998 BREAST CANCER [facility] Test 00:00:00 SCREENING [code = BREAST CANCER SCREENING] Future Scheduled 1998 COLONOSCOPY SCREENING [place] [facility] Test 00:00:00 [code = COLONOSCOPY SCREENING] Future Scheduled 1998 SHINGLES VACCINES (#1) [place] [facility] Test 00:00:00 [code = SHINGLES VACCINES (#1)] Future Scheduled 1966 Hepatitis C screening [place] [facility] Test 00:00:00 (procedure) [code = 248377132] Future Scheduled 1960 COVID-19 VACCINE (1) [place] [facility] Test 00:00:00 [code = COVID-19 VACCINE (1)] Future Scheduled 1954 65+ PNEUMOCOCCAL [facility] Test 00:00:00 VACCINE (1 of 2 - PPSV23) [code = 65+ PNEUMOCOCCAL VACCINE (1 of 2 - PPSV23)] Encounters Start End Encounter Admission Attending Care Care Encounter Source Date/Time Date/Time Type Type Clinicians Facility Department ID 2021-01-16 2021-01-16 Outpatient [facility] [id number] [place] 00:00:00 00:00:[address] 2021-01-12 2021-01-12 Outpatient CHONG [facility] [id number] [place] 00:00:00 00:00:00 MACHERI [address] 2020-12-28 2020-12-28 Outpatient ABDELRAHIM, [facility] [id number] [place] 00:00:00 00:00:00 MACHERI [address] 2020-12-25 2020-12-25 Outpatient ABDELRAHIM, [facility] [id number] [place] 00:00:00 00:00:00 EMEKA [address] 2020-12-22 2020-12-22 Outpatient ABDELRAHIM, [facility] [id number] [place] 00:00:00 00:00:00 EMEKA [address] 2020-12-22 2020-12-22 Outpatient ABDELRAHIM, [facility] [id number] [place] 00:00:00 00:00:00 EMEKA [address] 2020-12-14 2020-12-14 Outpatient ABDELRAHIM, [facility] [id number] [place] 00:00:00 00:00:00 EMEKA [address] 2020-11-26 2020-11-26 Outpatient ABDELRAHIM, [facility] [id number] [place] 00:00:00 00:00:00 EMEKA [address] 2020-11-26 2020-11-26 Outpatient ABDELRAHIM, [facility] [id number] [place] 00:00:00 00:00:00 EMEKA [address] 2020-11-12 2020-11-12 Outpatient ABDELRAHIM, [facility] [id number] [place] 00:00:00 00:00:00 EMEKA [address] 2020-11-03 2020-11-03 Outpatient GALATI, [facility] [id number] [place] 00:00:00 00:00:00 NETO [address] 2020-10-14 2020-10-14 Outpatient GALATI, [facility] [id number] [place] 00:00:00 00:00:00 NETO [address] 2020-08-13 2020-08-13 Outpatient GALATI, [facility] [id number] [place] 00:00:00 00:00:00 NETO [address] 2019-09-22 2019-09-22 Telephone [facility] [id number] 00:00:00 00:00:00 [facility] [id number] Surgical [id number] Specialti [id number] es [address] [place] 2019-09-21 2019-09-21 Urgent [facility] [id number] 17:16:48 17:31:48 Care [facility] [id number] Surgical [id number] Specialti [id number] es [address] [place] 2019-08-02 2019-08-02 Machining And Assembly Supervisor Cali Boateng [facility] [id number] 08:09:06 08:24:06 Visit Lab Main [place] [id number] [place] [id number] Professio [id number] [address] 2019-08-02 2019-08-02 Orders Doctor MONIQUE [id number] 00:00:00 00:00:00 Only Unassigned, KATARZYNA [id number] [place] [facility] [id number] Results Test Test Test Results Result Source Description Time Comments Comments IR Port 2020-12- [facility] Results Incoming - Method ist [...] image was stored.Port placed: Angiodynamics SmartPortCatheter size (Maltese): 8Catheter flush: Heparin (100 units/mL)ClosureThe access site and incision were closed and sterile dressing(s) were applied.Access site closure technique: Tissue adhesiveIncision closure technique: Absorbable suture and tissue adhesivePatient discharged from procedure suite with device accessed: NoContrastContrast agent: NoneContrast volume (mL): 0Radiation DoseReference air kerma (mGy): 6 Additional DetailsAdditional description of procedure: NoneEquipment details: NoneSpecimens removed: NoneEstimated blood loss (mL): Less than 10Standardized report: SIR_[id number]-[id number] CT Chest W 2020-11- [facility], Radiology Homar talamantes Contrast 20 Results [...] known cholangiocarcinoma, with moderate upstream biliary ductal dilation.[facility]-[id number] tated and approved by interventional radiology tech/fellow: Rivas German M.D.I, Toi Zapata MD, personally reviewed the images and resident's/fellow's findings and agree with the final report. MRI Abd/Pelvic 2020-10- This exam was not acquired [place] [address] at a [facility] facility [facility] 10:15:37 and has not been interpreted by a [facility] Provider. The exam was imported into our imaging system. Cytology (non-gynecological) request 2020-10-15 12:20:51 Test Item Value Reference Range Interpretation Comme nts Case number (test code = [id number]) [id number] Cytology (non-gynecological) report (test See link below for PDF La b Report code = 1178) Result status (test code = 3120671) This is Final Report for [id number] 1564-2 [facility] [id number] 11:28:57 Test Item Value Reference Range Interpretation Comments Case number (test code = [id number]) Surgical pathology See link below for report (test code = PDF Lab Report 2255) Result status (test code This is Final Report = [id number]) for [id number] Eduardo Atkinson Liver [id number] 18:36:11Hm Interface, Radiology Results Incoming - 10/14/2020 [...] performed.Coaxial needle: 17 gaugeCore needle biopsy device: YoombaCore needle size: 18 gaugeNumber of core specimens: [...] and agree with the report as written.[id number]
--- NOTE | 2021-01-22 12:21 | ER ---
Nurse's Notes [facility] Name: Simona Klein Age: 70 yrs Sex: Female : 1950 Arrival Date: 01/22/2021 Time: 11:04 Bed 19 Private MD: Diagnosis: Pain in left leg;Acute embolism and thrombosis of deep veins of lower extremity Presentation: 01/22 11:27 Chief complaint: Patient states: Patients has 2 known blood clots in L leg. States her ll1 Left foot feels cold, stated today. Sent in for eval by Dr. Brown. Coronavirus screen: Client denies travel out of the [place] in the last 14 days. At this time, the client does not indicate any symptoms associated with coronavirus-19. Ebola Screen: Patient denies travel to an Ebola-affected area in the 21 days before illness onset. Initial Sepsis Screen: Does the patient meet any 2 criteria? No. Patient's initial sepsis screen is negative. Does the patient have a suspected source of infection? Yes: Other: leg pain/clot. Risk Assessment: Do you want to hurt yourself or someone else? Patient reports no desire to harm self or others. Onset of symptoms was January 22, 2021. 11:27 Method Of Arrival: Wheelchair ll1 11:27 Acuity: CHANEL 3 ll1 Triage Assessment: 11:30 General: Appears distressed, comfortable, Behavior is cooperative, appropriate for age, bp anxious. Pain: Complains of pain in left leg. EENT: No deficits noted. Neuro: Level of Consciousness is awake, alert, obeys commands, Oriented to person, place, time, situation, Appropriate for age. Cardiovascular: No deficits noted. Respiratory: No deficits noted. GI: No deficits noted. : No signs and/or symptoms were reported regarding the genitourinary system. Derm: No deficits noted. Musculoskeletal: Circulation, motion, and sensation intact. Range of motion: intact in all extremities. Historical: - Allergies: 11:29 Sulfa (Sulfonamide Antibiotics); ll1 - PMHx: 11:29 Cancer; Hypothyroidism; bile duct CA; blood clots to legs; ll1 - PSHx: 11:29 mastectomy; ll1 - Immunization history:: Flu vaccine is up to date. - Social history:: Smoking status: Patient denies any tobacco usage or history of. Screenin:43 Abuse screen: Denies threats or abuse. Denies injuries from another. Nutritional bp screening: No deficits noted. Tuberculosis screening: No symptoms or risk factors identified. Fall Risk None identified. Assessment: 11:30 General: SEE TRIAGE NOTE. bp 12:42 Reassessment: PT D/C HOME AMBULATORY, DX WITH LLE PAIN AND PRE-EXISTING DVT OF LLE. bp Vital Signs: 11:27 BP 103 / 60; Pulse 83; Resp 17; Temp 97.2; Pulse Ox 100% ; Weight 64.86 kg; Height 5 ll1 ft. 1 in. (154.94 cm); Pain 8/10; 12:44 BP 117 / 67; Pulse 81; Resp 16; Temp 97.5; Pulse Ox 100% ; bp 11:27 Body Mass Index 27.02 (64.86 kg, 154.94 cm) ll1 ED Course: 11:04 Patient arrived in ED. mr 11:29 Triage completed. ll1 11:29 Arm band placed on. ll1 12:00 Gian Saleem PA is PHCP. jr8 12:00 Vinny Mccord MD is Attending Physician. jr8 12:11 Janel Mckenna, SEDRICK is Primary Nurse. iw 12:20 Serafin Brown MD is Referral Physician. jr8 12:43 Patient has correct armband on for positive identification. Bed in low position. Call bp light in reach. Side rails up X2. 12:43 No provider procedures requiring assistance completed. Patient did not have IV access bp during this emergency room visit. Administered Medications: No medications were administered Outcome: 12:21 Discharge ordered by . jr8 12:43 Discharged to home ambulatory. bp 12:43 Condition: stable 12:43 Discharge instructions given to patient, Instructed on discharge instructions, follow up and referral plans. Demonstrated understanding of instructions, follow-up care. 12:45 Patient left the ED. bp Signatures: Mccoy Simona mr Jaenl Mckenna, SEDRICK DUBOSE iw Gian Saleem PA PA jr8 Dc Catalan RN RN bp Lewis, Lynsay, RN RN ll1
--- NOTE | 2021-01-22 12:22 | EDPHYS ---
Physician Documentation [facility] Name: Simona Klein Age: 70 yrs Sex: Female : 1950 Arrival Date: 01/22/2021 Time: 11:04 Bed 19 Private MD: ED Physician Vinny Mccord HPI: 01/22 12:22 This 70 yrs old Female presents to ER via Wheelchair with complaints of Leg jr8 Pain. 12:22 Patient recently diagnosed with DVT secondary to cancer. Stated that she has since been jr8 on Eliquis and doing fine. Today upon awakening noted that leg felt cooler than normal on left side. Called PCP office and was instructed to come to ED for further evaluation . Historical: - Allergies: 11:29 Sulfa (Sulfonamide Antibiotics); ll1 - PMHx: 11:29 Cancer; Hypothyroidism; bile duct CA; blood clots to legs; ll1 - PSHx: 11:29 mastectomy; ll1 - Immunization history:: Flu vaccine is up to date. - Social history:: Smoking status: Patient denies any tobacco usage or history of. ROS: 12:22 Eyes: Negative for injury, pain, redness, and discharge, ENT: Negative for injury, jr8 pain, and discharge, Neck: Negative for injury, pain, and swelling, Cardiovascular: Negative for chest pain, palpitations, and edema, Respiratory: Negative for shortness of breath, cough, wheezing, and pleuritic chest pain, Abdomen/GI: Negative for abdominal pain, nausea, vomiting, diarrhea, and constipation, Back: Negative for injury and pain, Skin: Negative for injury, rash, and discoloration, Neuro: Negative for headache, weakness, numbness, tingling, and seizure. 12:22 MS/extremity: Positive for pain, of the left leg. Exam: 12:22 Constitutional: This is a well developed, well nourished patient who is awake, alert, jr8 and in no acute distress. Cardiovascular: Regular rate and rhythm with a normal S1 and S2. No gallops, murmurs, or rubs. Normal PMI, no JVD. No pulse deficits. Respiratory: Lungs have equal breath sounds bilaterally, clear to auscultation and percussion. No rales, rhonchi or wheezes noted. No increased work of breathing, no retractions or nasal flaring. Skin: Warm, dry with normal turgor. Normal color with no rashes, no lesions, and no evidence of cellulitis. Neuro: Awake and alert, GCS 15, oriented to person, place, time, and situation. Cranial nerves II-XII grossly intact. Motor strength 5/5 in all extremities. Sensory grossly intact. Cerebellar exam normal. Normal gait. 12:22 Musculoskeletal/extremity: Extremities: all appear grossly normal, with no appreciated pain with palpation, ROM: intact in all extremities, Pulses: noted to be 2+ in the right radial artery, right posterior tibial artery, right dorsalis pedis artery, left radial artery, left posterior tibial artery and left dorsalis pedis artery, Perfusion: the patient is normally perfused throughout, pink, warm, Perfusion: the extremity is normally perfused throughout, pink, warm, Sensation intact. Vital Signs: 11:27 BP 103 / 60; Pulse 83; Resp 17; Temp 97.2; Pulse Ox 100% ; Weight 64.86 kg; Height 5 ll1 ft. 1 in. (154.94 cm); Pain 8/10; 12:44 BP 117 / 67; Pulse 81; Resp 16; Temp 97.5; Pulse Ox 100% ; bp 11:27 Body Mass Index 27.02 (64.86 kg, 154.94 cm) ll1 MDM: 12:00 Patient medically screened. [facility] 12:22 Data reviewed: vital signs, nurses notes, and as a result, I will discharge patient. jr8 Data interpreted: Pulse oximetry: on room air is 100 %. Interpretation: normal. Counseling: I had a detailed discussion with the patient and/or guardian regarding: the historical points, exam findings, and any diagnostic results supporting the discharge/admit diagnosis, the need for outpatient follow up, a family practitioner, to return to the emergency department if symptoms worsen or persist or if there are any questions or concerns that arise at home. ED course: Discussed with patient that she has equal temperature in both legs with adequate pulses. No signs of acute arterial occlusion. Recommended f/u but from an emergency stand point nothing else needs to be done at this time. S/S given to watch for that would raise concern for occlusion. If worse to come back. Patient good with plan . Administered Medications: No medications were administered Disposition: 01/23 04:18 Co-signature as Attending Physician, Vinny Mccord MD. [email or web address] Disposition Summary: 01/22/21 12:21 Discharge Ordered Location: Home jr8 Problem: new jr8 Symptoms: have improved jr8 Condition: Stable jr8 Diagnosis - Pain in left leg jr8 - Acute embolism and thrombosis of deep veins of lower extremity jr8 Followup: jr8 - With: Serafin Brown MD - When: 2 - 3 days - Reason: Recheck today's complaints, Continuance of care, Re-evaluation by your physician Discharge Instructions: - Discharge Summary Sheet jr8 - Deep Vein Thrombosis jr8 Forms: - Medication Reconciliation Form jr8 - Thank You Letter jr8 - Antibiotic Education jr8 - Prescription Opioid Use jr8 Signatures: Gian Saleem PA PA 8 Manny Villavicencio RN RN 1 Vinny Mccord MD MD [email or web address]
[2021-01-22 12:51] VITALS: O2SAT 100
[2021-01-22 12:52] VITALS: BP 117/67; TEMP 97.5
== END 2021-01-22 12:45 | disposition home or self-care (01) ==
LOC: ER 10:58
DX: I82.402 Acute embolism and thrombosis of unspecified deep veins of left lower extremity (principal); E03.9 Hypothyroidism, unspecified; C24.0 Malignant neoplasm of extrahepatic bile duct
CPT/HCPCS: 99281

== ENCOUNTER 2021-04-26 12:05 | Day surgery (SDC) | payer OTHER ==
--- NOTE | 2021-04-23 13:25 | RAD REPORT ---
EXAM DESCRIPTION: RAD - Chest Pa And Lat (2 Views) - 04/23/2021 1:19 pm CLINICAL HISTORY: pre op COMPARISON: CHEST PA AND LAT 2 VIEW dated 12/13/2011 FINDINGS: Lines: Left IJ approach Port-A-Cath. Lungs: No evidence of edema or pneumonia. Pleural: No significant pleural effusions or pneumothorax. Cardiac: The heart size is within normal limits. Bones: No acute fractures. Other: IMPRESSION: No acute cardiopulmonary disease.
[2021-04-23 13:32] LABS: Absolute Lymphocytes (CBC) 1.6 K/uL (0.7-4.9); Basophils % 0.8 % (0-1.3); Hematocrit 27.7 % (36.0-45.0); Lymphocytes % 39.6 % (15.3-44.8); RBC Red Blood Cell Count 2.87 M/uL (3.86-4.86)
[2021-04-23 13:35] LABS: Protime INR 1.09
[2021-04-23 13:37] LABS: Potassium 4.3 mmol/L (3.5-5.1)
[~2021-04-26 12:05] MED LIST: ATROPINE SULF 1 MG/10 ML SYR IV ONE; FENTANYL CITR 100 MCG/2 ML ONE; HEPA 1000U/500MLS 2,000 UNIT/1,000 ML BAG IV ONE; HEPARIN 5000 UNIT/ML 1 ML VIAL ONE; LIDOCAINE 1% 20 ML MDV ONE; MIDAZOLAM HCL 2 MG/2 ML INJ ONE
[2021-04-26] MEDS ORDERED: NA CHLORIDE 0.9% 500 ML ONE (13:51)
[2021-04-26 14:15] VITALS: TEMP 97.6
[2021-04-26] MEDS ORDERED: HEPARIN 5000 UNIT/ML 1 ML VIAL ONE (14:46)
[2021-04-26] MEDS ORDERED: HEPA 1000U/500MLS 1,000 UNIT/500 ML BAG IV ONE ×2 (14:51→15:54)
[2021-04-26] MEDS ORDERED: HYDRALAZINE HCL 20 MG/ML VIAL ONE (16:07)
[2021-04-26 16:36] VITALS: O2SAT 100
[2021-04-26 17:47] VITALS: BP 155/67
--- NOTE | 2021-04-26 20:11 | OP ---
Date of Procedure: 04/26/2021 Surgeon: GEORGES RIVERA Procedures Performed: 1.Selective coronary angiogram. 2.Left heart catheterization. 3.Right heart catheterization. Indication: Aortic valve stenosis. Access: 1.Right femoral artery 6-Maldivian closed with StarClose. 2.Right femoral vein 7-Maldivian closed with manual pressure. Description Of Procedure: After risks, benefits, and alternatives were explained, the patient agreed to proceed and informed consent. The patient was brought into the cardiac catheterization laborator y, prepped and draped in usual sterile fashion. Then, I accessed right femoral artery using ultrasou nd guidance and fluoroscopy and micropuncture kit, placed 6-Maldivian Slender sheath and then accessed t he femoral vein in the same eye. I put a 7-Maldivian [place] sheath and took a 7-Maldivian balloon-tipped [place] catheter into the RA, RV, PA and wedge and obtained waveform and pressures and cardiac output w ith thermodilution was obtained and then removed the [place]. Then, took a 6-Maldivian JL4 catheter into t he aortic root, engaged the left main and exchanged for a 6-Maldivian JR4 catheter and engaged the right coronary artery, took standard views and took 4-Maldivian catheter into the aortic root with a straight Glidewire across the aortic valve with difficulty and then obtained LV and LVEDP and pull back recorded gradient close to 30 mmHg and gave the average aortic valve area of 0.83 sq cm. Findings: 1.Left main is normal. 2.LAD; large and normal. 3.Left circumflex; large, dominant and normal. 4.RCA; small, non dominant. Right Heart Catheterization: RA pressure was 2, RV pressure was 24/2 and mean of 4, PA pressure was 26/10, mean 17, pulmonary wedge pressure was 6. Average cardiac output was 4.75 with a mean gradient of 27 mmHg and aortic valve area was 0.83 sq cm. Conclusion: 1.Normal coronary arteries. 2.Severe low-flow low gradient aortic valve stenosis with a valve area of 0.83 sq cm. Plan: Proceed with TAVR. SR/MODL Voice ID: [id number] Report ID: [id number]
== END 2021-04-26 18:15 | disposition home or self-care (01) ==
LOC: CCL 12:05
PROVIDERS: ATTEND Internal Medicine
DX: I35.2 Nonrheumatic aortic (valve) stenosis with insufficiency (principal); I82.402 Acute embolism and thrombosis of unspecified deep veins of left lower extremity; Z79.01 Long term (current) use of anticoagulants; Z88.2 Allergy status to sulfonamides; Z20.822 Contact with and (suspected) exposure to COVID-19
CPT/HCPCS: 85025; 80048; 36415; 85610; 85730; 71046; 93460; U0003; C1893; J0360; J2250; J3010; J7040; J1644 ×3

== ENCOUNTER 2023-03-13 10:38 | Emergency (ER) | payer OTHER ==
--- OUTSIDE RECORDS SUMMARY | 2023-03-13 10:44 | XMS REPORT | Continuity of Care Document ---
:1950 Author Organization [facility] t Address [address] [place]. [address] [place] [address] Care Team Providers Name Role Phone Serafin Brown Primary Care Physician VINCENT RUIZ Attending Clinician Unavailable Archana CHRISTIANSEN PhD, Perez Attending Clinician Carley Coronel MA Attending Clinician Unavailable Floresita RODNEY, Dimitry Owen Attending Clinician [phone] Nevin Pastor RN Attending Clinician Unavailable Love Jimenez RN Attending Clinician Unavailable Vincent Ruiz MD Attending Clinician Only, Adc Test Attending Clinician Unavailable Micheline Cope MD Attending Clinician MICHELINE COPE Attending Clinician Unavailable Pob, Ad[facility] Lab Main Attending Clinician Unavailable Doctor Unassigned, [place] Attending Clinician Unavailable DELANO TONY Attending Clinician Unavailable NIRAJ PERALTA Attending Clinician Unavailable MD NIRAJ PERALTA Attending Clinician Unavailable Ladarius Workman Attending Clinician Unavailable Alfonso Mccain Attending Clinician Unavailable Vinny Cuba Attending Clinician Unavailable Heather Moraes MA Attending Clinician Unavailable RASHAUN QUINN Attending Clinician Unavailable MIREILLE QUINN Attending Clinician Unavailable Shonda Tavera RPH Attending Clinician Unavailable Jennifer Soto RN Attending Clinician Unavailable Bob Thomas RN Attending Clinician Unavailable Leon RODNEY, Etta Attending Clinician Becky Ugalde RN Attending Clinician Unavailable Kosta [facility], Kathy Attending Clinician Unavailable Provider, Unknown Attending Clinician Unavailable Neto Morrison MD Attending Clinician Tim DUBOSE, Dee Dee Attending Clinician Unavailable Eugenie Vidal Attending Clinician Unknown, Attending Attending Clinician Unavailable UNKNOWN, ATTENDING Attending Clinician Unavailable Mahendra CHRISTIANSEN, Ashlee Branch Attending Clinician VINCENT RUIZ Admitting Clinician Unavailable Sara CHRISTIANSEN, Vincent Rivas Admitting Clinician NIRAJ PERALTA Admitting Clinician Unavailable MD NIRAJ PERALTA Admitting Clinician Unavailable Ladarius Workman Admitting Clinician Unavailable Alfonso Mccain Admitting Clinician Unavailable Physician, No Primary or Family Admitting Clinician UnavailRASHAUN Joshi Admitting Clinician Unavailable Payers Payer Name Policy Type Policy Number Effective Date Expiration Date Gracia ty BELINDA/NIC [id number] 2019 MEDICARE ADVANTAGE 00:00:00 BHAKTI [id number] 2021 00:00:00 Problems Condition Condition Condition Status Onset Resolution Last Treating Co mments Source Name Details Category Date Date Treatment Clinician Date Loss of Loss of Disease Active Methodi appetite appetite 07-22 st 00:00: Hospita 00 l Cholangioc Cholangioc Disease Active 2020-07 M ethodi arcinoma arcinoma 08-17 of liver of liver 00:00: Hospit a 00 l On On Disease Active Methodi antineopla antineopla 01-12 st stic stic 00:00: Hospita chemothera chemothera 00 l py py On On Disease Active Methodi antineopla antineopla 01-12 stic stic 00:00: Hospita chemothera chemothera 00 l py py Constipati Constipati Disease Active M ethodi on on 01-12 00:00: Hospita 00 l Cholangioc Cholangioc Disease Active M ethodi arcinoma arcinoma 11-15 00:00: Hospita 00 l No known No known Disease Unive rs active active ity of problems problems [facility] Allergies, Adverse Reactions, Alerts Allergy Allergy Status Severity Reaction(s) Onset Inactive Treating Comm ents Source Name Type Date Date Clinician Sulfa DA Active MA 2020-07 [facility] (Sulfona 0-25 Clear mide 00:00: [facility] Antibiot 00 [facility] Sulfa DA Active MA HIVES 2020-07 [facility] (Sulfona 0-25 Clear mide 00:00: [place] Antibiot 00 Regiona ics) [facility] No Known DA Active U 2020-07 [facility] Allergie 0-19 Clear s 00:00: [place] 00 [facility] No Known DA Active U 2020-07 [facility] Allergie 0-19 Clear s 00:00: [place] 00 [facility] Sulfa Propensi Active Rash Methodi (Sulfona ty to 4-07 st mide adverse 00:00: Hospita Antibiot reaction 00 l ics) s to drug Sulfa Propensi Active Hives 2017- Univers (Sulfona ty to 6-22 ity of mide adverse 00:00: [place] Antibiot reaction 00 Medica l ics) s Branch Sulfa Propensi Active Hives 2017-0 Univers (Sulfona ty to 6-22 ity of mide adverse 00:00: [place] Antibiot reaction 00 Medica l ics) s Branch SULFA Drug Active Hives 2017-0 Univers (SULFONA Class 6-22 ity of MIDE 00:00: [place] ANTIBIOT 00 Medical ICS) Branch Social History Social Habit Start Date Stop Date Quantity Comments Source Gender identity 2021-02-21 Identifies as Method ist 16:02:58 female gender Hospital (finding) Sexual orientation 2021-02-21 Heterosexual Meth odist 16:02:58 (finding) Hospital History SDOH [facility] Alcohol Std Drinks Hospit al History SDOH [facility] Alcohol Binge Hospital History of Social 2022-09-17 2022-09-[address] function 00:00:00 00:00:00 Hospital Alcohol intake 2022-03-17 2022-03-17 Ex-drinker [facility] 00:00:00 00:00:00 (finding) Hospital Exposure to 2021-12-20 2021-12-30 Not sure University of SARS-CoV-2 (event) 00:00:00 12:12:00 [facility] Alcohol Comment 2021-06-16 2021-06-16 Occasional [facility] 00:00:00 00:00:00 Hospital History SDOH 2020-10-14 2020-10-14 1 [facility] Alcohol Frequency 00:00:00 00:00:00 Hospita l Tobacco use and 2017-12-29 2017-12-29 Never used Universit y of exposure 00:00:00 00:00:00 [facility] Sex Assigned At [birth year] Universit y of 00:00:00 00:00:00 [facility] Smoking Status Start Date Stop Date Source Never smoked tobacco [facility] Medications Ordered Filled Start Stop Current Ordering Indication Dosage Frequency Signature Comments Components Source Medication Medication Date Date Medication? Clinician (SIG) Name Name levothyroxi Yes 88ug QD Take 88 Met hodi ne 8-[address] (SYNTHROID) 10:08: mouth Hospi ta 88 mcg 50 every l tablet morning. acetaminoph Yes 500mg Q6H Take 500 M ethodi en 8-[address] (TYLENOL) 10:08: mouth Hospita 500 MG 50 every 6 l tablet (six) hours as needed for mild pain. ezetimibe Yes Methodi (ZETIA) 10 7-08 st mg tablet 00:00: Hospita 00 l neomycin-po 2021- No PRN, Unive rs lymyxin-dex 01-05 Starting ity of amethasone 17:31: 18:08 [place] (MAXITROL[place] 00 :03 01/05/22 at Med ical 3.5 1231, Branch mg/g-10,000 Until Mon unit/g-0.1 01/05/22 at % 1308, ophthalmic Routine, ointment Intra-op carbachoL 2021- No PRN, Univers (MIOSTAT) 01-05 Starting ity o f 0.01 % 17:30: 18:08 on Mon [place] intraocular 00 :03 01/05/22 at Me dical injection 1230, Branch Until Mon01/05/22 at 1308, Routine, Intra-op chondroitin 2022-0 2022- No PRN, Unive rs sulf-sod 01-05 Starting ity of hyaluronate 17:27: 18:08 on Mon Adryan as (DUOVISC 00 :03 01/05/22 at Medic al VISCO 1227, Branch ELASTIC) Until Mon intraocular 01/05/22 at injection 1308, Routine, Intra-op dexamethaso 2021- No PRN, Unive rs ne 01-05 Starting ity of (DECADRON 17:26: 18:08 on Mon [place] PHOSPHATE) 00 :03 01/05/22 at Med ical injection 1226, Branch Until Mon01/05/22 at 1308, Routine, Intra-op ceFAZolin 2021- No PRN, Univers (ANCEF) 01-05 Starting ity of injection 17:26: 18:08 on Mon [place] 00 :03 01/05/22 at Medical 1226, Branch Until Mon01/05/22 at 1308, AUGUSTINE, Intra-op water for 2021- No PRN, Univers irrigation 01-05 Starting ity of irrigation 17:13: 18:08 on Mon [place] solution 00 :03 01/05/22 at Medic al 1213, Branch Until 01/05/22 at 1308, Routine, Intra-op eye block 2021- No PRN, Univers syringe 11 01-05 Starting ity of mL 17:10: 18:08 on Mon [place] 00 :03 01/05/22 at Medical 1210, Branch Until 01/05/22 at 1308, Intra-op Hyaluronida 2021- No PRN, Unive rs se, Human 01-05 Starting ity o f Recomb. 17:08: 18:08 on Mon [place] (HYLENEX) 00 :03 01/05/22 at Medi lennox injection 1208, Branch Until Mon01/05/22 at 1308, Routine, Intra-op sodium 2021- No PRN, Univers chloride 01-05 Starting ity of (NS) 17:08: 18:08 on Mon [place] injection 00 :03 01/05/22 at Medi lennox 1208, Branch Until Mon01/05/22 at 1308, Routine, Intra-op EPINEPHrine 2021- No PRN, Unive rs 1:1,000 (1 01-05 Starting ity of mg/mL) 17:07: 18:08 on Mon [place] (ADRENALIN) 00 :03 01/05/22 at Ut dical injection 1207, Branch Until Mon01/05/22 at 1308, Routine, Intra-op balanced 2021- No PRN, Univers salt irrig 01-05 Starting ity of soln comb1 17:07: 18:08 on [place] (BSS PLUS) 00 :03 01/05/22 at [facility] ical ophthalmic 1207, Branch solution Until Mon 500 mL bag 01/05/22 at 1308, Routine, Intra-op cyclopent 2021- No .5mL 0.5 mL, Univ ers 1%-tropic 01-05 Right Eye, ity of 1%-phenyl 16:00: 16:10 ONCE, 1 [place] 2.5%-ketor 00 :00 dose, On Medic al 0.5% Mon Branch (MYDRIATIC 01/05/22 at #5) 1100, ophthalmic Routine, solution DSU Pre-op syringe 0.5 mL lactated 2021- No 1000mL at 42 Unive rs ringers IV 01-05 mL/hr, ity of infusion 16:00: 16:10 1,000 mL, Adryan as 1,000 mL 00 :00 IV Medical Infusion, Branch ONCE, 1 dose, On Mon01/05/22 at 1100, Routine, DSU Pre-op cyclopent 2021- No .5mL 0.5 mL, Univ ers 1%-tropic 01-05 Right Eye, ity of 1%-phenyl 16:00: 16:10 ONCE, 1 [place] 2.5%-ketor 00 :00 dose, On Medic al 0.5% Mon Branch (MYDRIATIC 01/05/22 at #5) 1100, ophthalmic Routine, solution DSU Pre-op syringe 0.5 mL lactated 2021- No 1000mL at 42 Unive rs ringers IV 01-05 mL/hr, ity of infusion 16:00: 16:10 1,000 mL, Adryan as 1,000 mL 00 :00 IV Medical Infusion, Branch ONCE, 1 dose, On Mon01/05/22 at 1100, Routine, DSU Pre-op atorvastati 0 Yes Take by Uni vers n calcium 6-29 mouth. ity of (ATORVASTAT 13:24: [place] IN ORAL) 16 Medical Branch levothyroxi 0 Yes 88ug Take 88 Uni vers ne 88 mcg 6-29 mcg by ity of tablet 13:24: mouth [place] 16 every Medical morning. Branch apixaban 0 Yes 5mg Take 5 mg Univ ers (ELIQUIS) 5 6-29 by mouth 2 it y of mg tablet 13:24: (two) [place] 16 times Medical daily. Branch atorvastati Yes Take by Uni vers n calcium 6-29 mouth. ity of (ATORVASTAT 13:24: [place] IN ORAL) 16 Medical Branch levothyroxi Yes 88ug Take 88 Uni vers ne 88 mcg 6-29 mcg by ity of tablet 13:24: mouth [place] 16 every Medical morning. Branch apixaban 0 Yes 5mg Take 5 mg Univ ers (ELIQUIS) 5 6-29 by mouth 2 it y of mg tablet 13:24: (two) [place] 16 times Medical daily. Branch atorvastati Yes Take by Uni vers n calcium 6-23 mouth. ity of (ATORVASTAT 12:09: [place] IN ORAL) 14 Medical Branch levothyroxi 0 Yes 88ug Take 88 Uni vers ne 88 mcg 6-23 mcg by ity of tablet 12:09: mouth [place] 14 every Medical morning. Branch apixaban 0 Yes 5mg Take 5 mg Univ ers (ELIQUIS) 5 6-23 by mouth 2 it y of mg tablet 12:09: (two) [place] 14 times Medical daily. Branch levothyroxi 2021-0 2021- No Take by Un kelvin ne sodium 6-23 06-23 mouth. ity of (SYNTHROID 12:06: 00:00 [place] ORAL) 40 :00 Medical Branch levothyroxi 2021-0 2021- No Take by Un kelvin ne sodium 6-23 06-23 mouth. ity of (SYNTHROID 12:06: 00:00 [place] ORAL) 40 :00 Medical Branch enoxaparin 2020-07 Yes 80mg Q.5D Inject 80 Me thodi (LOVENOX) 1-[address] 80 mg/0.8 00:00: the skin 2 Ho spita mL syringe 00 (two) l times a day. traMADoL Yes 50mg Q6H Take 50 mg Met hodi (ULTRAM) 50 9-[address] mg tablet 16:48: every 6 Hospi ta 54 (six) l hours as needed. levothyroxi Yes 88ug QD Take 88 Met hodi ne 9-[address] (SYNTHROID) 15:28: mouth Hospi ta 88 mcg 12 every l tablet morning. acetaminoph Yes 500mg Q6H Take 500 M ethodi en 9-[address] (TYLENOL) 15:28: mouth Hospita 500 MG 12 every 6 l tablet (six) hours as needed for mild pain. dexamethaso 2020- No [id number] Take 2 Methodi ne 9-22 10-[address] (DECADRON) 00:00: 04:59 mouth Hospi ta 4 MG tablet 00 :00 daily with l food for 3 days after each chemothera py Eliquis 5 2020-0 Yes Methodi mg tablet 7-15 st 00:00: Hospita 00 l apixaban Yes 5mg Take 1 Methodi (ELIQUIS) 5 7-14 tablet (5 st mg tablet 00:00: mg total) Hos hermelindo 00 by mouth. l traMADoL 2020- [place] [id number] 50mg Q8H Take 50 mg M ethodi (ULTRAM) 50 7-10 07-[address] mg tablet 19:00: 00:00 every 8 Hosp nieves 05 :00 (eight) l hours as needed for moderate pain .acute pain. ciprofloxac 2020- No [id number] 500mg Q.5D Take 1 Methodi in (Cipro) 7-10 07-[address] 500 MG 00:00: 04:59 (500 mg Hospita tablet 00 :00 total) by l mouth 2 (two) times a day for 7 days. lactulose Yes 20g Q.5D Take 30 mL Me thodi 20 gram/30 6-29 ([address] mL solution 00:00: total) by H ospita 00 mouth 2 l (two) times a day. lactulose 0 Yes 20g Q.5D Take 30 mL Me thodi 20 gram/30 6-29 ([address] mL solution 00:00: total) by H ospita 00 mouth 2 l (two) times a day. sennosides- 2020- No 1{tbl} QD Take 1 M ethodi docusate 6- 06-[address] sodium 00:00: 00:00 mouth Hospita (Senna with 00 :00 daily. l Docusate Sodium) 8.6-50 mg per tablet docusate 0 Yes 100mg Take 100 Meth jayy sodium 100 6-[address] mg capsule 00:00: mouth. Hospi ta 00 l docusate 0 Yes 100mg Take 100 Meth jayy sodium 100 6-[address] mg capsule 00:00: mouth. Hospi ta 00 l ondansetron Yes [id number] 8mg Q8H Take 1 Methodi ODT 5-20 tablet (8 st (ZOFRAN-ODT 00:00: mg total) H ospita ) 8 MG 00 by mouth l disintegrat every 8 ing tablet (eight) hours as needed for nausea or vomiting. ondansetron Yes [id number] 8mg Q8H Take 1 Methodi ODT 5-20 tablet (8 st (ZOFRAN-ODT 00:00: mg total) H ospita ) 8 MG 00 by mouth l disintegrat every 8 ing tablet (eight) hours as needed for nausea or vomiting. dexamethaso 2020- No [id number] Take 2 Methodi ne 5-20 09-[address] (DECADRON) 00:00: 00:00 mouth Hospi ta 4 MG tablet 00 :00 daily with l food for 3 days after each chemothera py phenazopyri 2019-0 Yes [id number] 200mg Take 1 Univers dine 200 mg 1-31 tablet by ity of tablet 00:00: mouth 3 [place] 00 (three) Medical times Branch daily. levoFLOXaci 2019-0 Yes [id number] 500mg Take 1 Univers n 1-31 tablet by ity of (LEVAQUIN) 00:00: mouth [place] 500 mg 00 every 24 Medical tablet (twenty-fo Branch ur) hours. phenazopyri 2020-0 Yes [id number] 200mg Take 1 Univers dine 200 mg 1-31 tablet by ity of tablet 00:00: mouth 3 [place] 00 (three) Medical times Branch daily. levoFLOXaci 2020-0 Yes [id number] 500mg Take 1 Univers n 1-31 tablet by ity of (LEVAQUIN) 00:00: mouth [place] 500 mg 00 every 24 Medical tablet (twenty-fo Branch ur) hours. phenazopyri 2020-0 Yes [id number] 200mg Take 1 Univers dine 200 mg 1-31 tablet by ity of tablet 00:00: mouth 3 [place] 00 (three) Medical times Branch daily. levoFLOXaci 2020-0 Yes [id number] 500mg Take 1 Univers n 1-31 tablet by ity of (LEVAQUIN) 00:00: mouth [place] 500 mg 00 every 24 Medical tablet ([facility]-fo Branch ur) hours. phenazopyri 2020-0 Yes [id number] 200mg Take 1 Univers dine 200 mg 1-31 tablet by ity of tablet 00:00: mouth 3 [place] 00 (three) Medical times Branch daily. levoFLOXaci 2020-0 Yes [id number] 500mg Take 1 Univers n 1-31 tablet by ity of (LEVAQUIN) 00:00: mouth [place] 500 mg 00 every 24 Medical tablet (-fo Branch ur) hours. phenazopyri 2020-0 Yes [id number] 200mg Take 1 Univers dine 200 mg 1-31 tablet by ity of tablet 00:00: mouth 3 [place] 00 (three) Medical times Branch daily. levoFLOXaci 2020-0 Yes [id number] 500mg Take 1 Univers n 1-31 tablet by ity of (LEVAQUIN) 00:00: mouth [place] 500 mg 00 every 24 Medical tablet (twenty-fo Branch ur) hours. phenazopyri 2020-0 Yes [id number] 200mg Take 1 Univers dine 200 mg 1-31 tablet by ity of tablet 00:00: mouth 3 [place] 00 (three) Medical times Branch daily. levoFLOXaci 2020-0 Yes [id number] 500mg Take 1 Univers n 1-31 tablet by ity of (LEVAQUIN) 00:00: mouth [place] 500 mg 00 every 24 Medical tablet (twenty-fo Branch ur) hours. phenazopyri 2020-0 Yes [id number] 200mg Take 1 Univers dine 200 mg 1-31 tablet by ity of tablet 00:00: mouth 3 [place] 00 (three) Medical times Branch daily. levoFLOXaci 2020-0 Yes [id number] 500mg Take 1 Univers n 1-31 tablet by ity of (LEVAQUIN) 00:00: mouth [place] 500 mg 00 every 24 Medical tablet (twentyfo Branch ur) hours. phenazopyri 2020-0 Yes [id number] 200mg Take 1 Univers dine 200 mg 1-31 tablet by ity of tablet 00:00: mouth 3 [place] 00 (three) Medical times Branch daily. levoFLOXaci 2020-0 Yes [id number] 500mg Take 1 Univers n 1-31 tablet by ity of (LEVAQUIN) 00:00: mouth [place] 500 mg 00 every 24 Medical tablet ([facility] Branch ur) hours. atorvastati Yes Take by Uni vers n calcium 6-23 mouth. ity of (ATORVASTAT 02:16: [place] IN ORAL) 43 Medical Branch levothyroxi Yes Take by Uni vers ne sodium 6-23 mouth. ity of (SYNTHROID 02:16: [place] ORAL) 43 Medical Branch atorvastati Yes Take by Uni vers n calcium 6-23 mouth. ity of (ATORVASTAT 02:16: [place] IN ORAL) 43 Medical Branch levothyroxi Yes Take by Uni vers ne sodium 6-23 mouth. ity of (SYNTHROID 02:16: [place] ORAL) 43 Medical Branch atorvastati Yes Take by Uni vers n calcium 6-23 mouth. ity of (ATORVASTAT 02:16: [place] IN ORAL) 43 Medical Branch levothyroxi 0 Yes Take by Uni vers ne sodium 6-23 mouth. ity of (SYNTHROID 02:16: [place] ORAL) 43 Medical Branch atorvastati Yes Take by Uni vers n calcium 6-23 mouth. ity of (ATORVASTAT 02:16: [place] IN ORAL) 43 Medical Branch levothyroxi Yes Take by Uni vers ne sodium 6-23 mouth. ity of (SYNTHROID 02:16: [place] ORAL) 43 Medical Branch atorvastati 2017-0 Yes Take by Uni vers n calcium 6-22 mouth. ity of (ATORVASTAT 21:16: [place] IN ORAL) 43 Medical Branch levothyroxi 2017-0 Yes Take by Uni vers ne sodium 6-22 mouth. ity of (SYNTHROID 21:16: [place] ORAL) 43 Medical Branch atorvastati 0 Yes Take by Uni vers n calcium 6-22 mouth. ity of (ATORVASTAT 21:16: [place] IN ORAL) 43 Medical Branch levothyroxi 2017-0 Yes Take by Uni vers ne sodium 6-22 mouth. ity of (SYNTHROID 21:16: [place] ORAL) 43 Medical Branch atorvastati 2017-0 Yes Take by Uni vers n calcium 6-22 mouth. ity of (ATORVASTAT 21:16: [place] IN ORAL) 43 Medical Branch levothyroxi 2017-0 Yes Take by Uni vers ne sodium 6-22 mouth. ity of (SYNTHROID 21:16: [place] ORAL) 43 Medical Branch traMADOL 50 0 Yes [id number] 50mg Take 1 Univers mg tablet 6-22 tablet by ity o f 00:00: mouth [place] 00 every 6 Medical (six) Branch hours as needed for Pain (scale 7-10). traMADOL 50 0 Yes [id number] 50mg Take 1 Univers mg tablet 6-22 tablet by ity o f 00:00: mouth [place] 00 every 6 Medical (six) Branch hours as needed for Pain (scale 7-10). traMADOL 50 0 Yes [id number] 50mg Take 1 Univers mg tablet 6-22 tablet by ity o f 00:00: mouth [place] 00 every 6 Medical (six) Branch hours as needed for Pain (scale 7-10). traMADOL 50 2017-0 Yes [id number] 50mg Take 1 Univers mg tablet 6-22 tablet by ity o f 00:00: mouth [place] 00 every 6 Medical (six) Branch hours as needed for Pain (scale 7-10). traMADOL 50 2017-0 Yes [id number] 50mg Take 1 Univers mg tablet 6-22 tablet by ity o f 00:00: mouth [place] 00 every 6 Medical (six) Branch hours as needed for Pain (scale 7-10). traMADOL 50 2017-0 Yes [id number] 50mg Take 1 Univers mg tablet 6-22 tablet by ity o f 00:00: mouth [place] 00 every 6 Medical (six) Branch hours as needed for Pain (scale 7-10). traMADOL 50 2018-0 Yes [id number] 50mg Take 1 Univers mg tablet 6-22 tablet by ity o f 00:00: mouth [place] 00 every 6 Medical (six) Branch hours as needed for Pain (scale 7-10). traMADOL 50 0 Yes [id number] 50mg Take 1 Univers mg tablet 6-22 tablet by ity o f 00:00: mouth [place] 00 every 6 Medical (six) Branch hours as needed for Pain (scale 7-10). traMADOL 50 2017-0 Yes [id number] 50mg Take 1 Univers mg tablet 6-22 tablet by ity o f 00:00: mouth [place] 00 every 6 Medical (six) Branch hours as needed for Pain (scale 7-10). traMADOL 50 0 Yes [id number] 50mg Take 1 Univers mg tablet 6-22 tablet by ity o f 00:00: mouth [place] 00 every 6 Medical (six) Branch hours as needed for Pain (scale 7-10). Vital Signs Vital Name Observation Time Observation Value Comments Source Systolic blood 2022-01-05 18:00:00 124 mm[Hg] [facility] Diastolic blood 2022-01-05 18:00:00 56 mm[Hg] [facility] Heart rate 2022-01-05 18:00:00 67 /min [facility] Respiratory rate 2022-01-05 18:00:00 28 /min [facility] Oxygen saturation in 2022-01-05 18:00:00 100 /min [facility] Arterial blood by [facility] Pulse oximetry Branch Body temperature 2022-01-05 17:36:00 36.11 Marilyn [facility] Body height 2021-12-30 13:50:00 165.1 cm [facility] Body weight 2021-12-30 13:50:00 70.3 kg [facility] BMI 2021-12-30 13:50:00 25.79 kg/m2 [facility] Systolic blood 2022-01-05 15:56:00 128 mm[Hg] Univer sity of pressure [place] [facility] Diastolic blood 2022-01-05 15:56:00 51 mm[Hg] Unive rsity of pressure [facility] Heart rate 2022-01-05 15:56:00 81 /min [facility]i [facility] [place] [facility] Body temperature 2022-01-05 15:56:00 37.06 Marilyn Univ ersity of [place] [facility] Respiratory rate 2022-01-05 15:56:00 16 /min Univ ersity of [place] [facility] Oxygen saturation in 2022-01-05 15:56:00 100 /min University of Arterial blood by [facility] Pulse oximetry Branch Body height 2021-12-30 13:50:00 165.1 cm [facility] [place] [facility] Body weight 2021-12-30 13:50:00 70.3 kg [facility] [place] [facility] BMI 2021-12-30 13:50:00 25.79 kg/m2 [facility] [place] [facility] Systolic blood 2019-09-21 22:21:00 129 mm[Hg] Univer sity of pressure [facility] Diastolic blood 2019-09-21 22:21:00 69 mm[Hg] Unive rsity of pressure [facility] Heart rate 2019-09-21 22:21:00 88 /min [facility] [place] [facility] Body temperature 2019-09-21 22:21:00 36.72 Marilyn [facility] [place] [facility] Respiratory rate 2019-09-21 22:21:00 18 /min Univ ers[facility] [place] [facility] Body height 2019-09-21 22:21:00 165.1 cm [facility] [place] [facility] Body weight 2019-09-21 22:21:00 70.308 kg [facility] [place] [facility] BMI 2019-09-21 22:21:00 25.79 kg/m2 [facility] [place] [facility] Oxygen saturation in 2019-09-21 22:21:00 98 /min University of Arterial blood by [facility] Pulse oximetry Branch Systolic blood 2019-09-21 22:21:00 129 mm[Hg] Univer sity of pressure [place] [facility] Diastolic blood 2019-09-21 22:21:00 69 mm[Hg] Unive rsity of pressure [facility] Heart rate 2019-09-21 22:21:00 88 /min Universi [facility] Body temperature 2019-09-21 22:21:00 36.72 Marilyn [facility] Respiratory rate 2019-09-21 22:21:00 18 /min [facility] Body height 2019-09-21 22:21:00 165.1 cm Universi [facility] Body weight 2019-09-21 22:21:[address] [facility] 2019-09-21 22:21:00 25.79 kg/m2 [facility] Oxygen saturation in 2019-09-21 22:21:00 98 /min [facility] Arterial blood by [facility] Pulse oximetry [place] Body weight 2022-11-16 17:14:00 58.968 kg [facility] BMI 2022-11-16 17:14:00 24.56 kg/m2 [facility] Body height 2021-04-07 19:29:00 154.9 cm [facility] Body weight 2021-04-07 19:29:00 64.592 kg [facility] BMI 2021-04-07 19:29:00 26.91 kg/m2 [facility] Systolic blood 2021-04-01 15:20:00 149 mm[Hg] [place] [facility] pressure Diastolic blood 2021-04-01 15:20:00 68 mm[Hg] [facility] pressure Heart rate 2021-04-01 15:20:00 81 /min [facility] Body temperature 2021-04-01 15:20:00 35.39 Marilyn [facility] Respiratory rate 2021-04-01 15:20:00 18 /min [facility] Oxygen saturation in 2021-04-01 15:20:00 99 /min [facility] Arterial blood by Pulse oximetry Procedures Procedure Date / Time Performing Source Performed Clinician CANCER ANTIGEN 19-9 2022-12-01 Perez Magaña [facility] 14:59:00 CARCINOEMBRYONIC ANTIGEN 2022-12-01 Perez Magaña [facility] (CEA) 14:59:00 CBC WITH PLATELET AND 2022-12-01 Perez Magaña [facility] DIFFERENTIAL 14:59:00 COMPREHENSIVE METABOLIC PANEL 2022-12-01 Archana Perez [facility] 14:59:00 ESTIMATED GFR 2022-12-01 Perez Magaña [facility] 14:59:00 CT CHEST W CONTRAST 2022-11-21 Perez Magaña [facility] [facility] 18:57:43 POC CREATININE 2022-11-21 Perez Magaña [facility] 18:47:00 ESTIMATED GFR 2022-11-21 Perez Magaña [facility] 18:47:00 MRI PELVIS W WO CONTRAST 2022-11-16 Archana [facility] 18:30:00 MRI ABDOMEN W WO CONTRAST 2022-11-16 [facility] 17:50:15 CANCER ANTIGEN 19-9 2022-08-04 Perez Magaña [facility] ospital 16:23:00 CARCINOEMBRYONIC ANTIGEN 2022-08-04 Archana [facility] (CEA) 16:23:00 COMPREHENSIVE METABOLIC PANEL 2022-08-04 Archana [facility] 16:23:00 CBC WITH PLATELET AND 2022-08-[address] [facility] DIFFERENTIAL 16:23:00 ESTIMATED GFR 2022-08-[address] [facility] 16:23:00 MRI PELVIS W WO CONTRAST 2022-06-22 Archana [facility] 19:15:52 MRI ABDOMEN W WO CONTRAST 2022-06-22 [facility]15 CT CHEST W CONTRAST 2022-06-22 Perez Magaña [facility] ospital 16:52:07 POC CREATININE 2022-06-22 [facility] 16:36:00 ESTIMATED GFR 2022-06-[address] [facility] 16:36:00 MRI ABDOMEN W WO CONTRAST 2022-03-17 [facility] 18:15:00 MRI PELVIS W WO CONTRAST 2022-03-17 Charbelnjhua [facility] 17:40:00 CT CHEST W CONTRAST 2022-03-17 Archana [facility] ospital 16:41:23 POC CREATININE 2022-03-17 Perez Magaña [facility] 16:06:00 ESTIMATED GFR 2022-03-17 Charbelnjhua [facility] 16:06:00 CBC WITH PLATELET AND 2022-03-[address] [facility] DIFFERENTIAL 15:17:00 COMPREHENSIVE METABOLIC PANEL 2022-03-17 [facility] 15:17:00 CARCINOEMBRYONIC ANTIGEN 2022-03-[address] [facility] (CEA) 15:17:00 CANCER ANTIGEN 19-9 2022-03-17 Cassandracyndy [facility] ospital 15:17:00 ESTIMATED GFR 2022-03-17 [facility] 15:17:00 PHACOEMULSIFICATION OF 2022-01-05 Vincent Ruiz [facility] CATARACT WITH INTRAOCULAR 16:57:00 Medica l Branch LENS IMPLANT CONSENT/REFUSAL FOR DIAGNOSIS 2022-01-03 Doctor Unassigned, [facility] AND TREATMENT 16:13:52 [facility] CONSENT/REFUSAL FOR DIAGNOSIS 2022-01-03 Doctor Unassigned, [facility] AND TREATMENT 16:13:52 [facility] ASSIGNMENT OF BENEFITS 2022-01-03 Doctor Unassigned, [facility] 16:13:33 [facility] ASSIGNMENT OF BENEFITS 2022-01-03 Doctor Unassigned, [facility] 16:13:33 [facility] DISCLOSURE AND CONSENT, 2021-12-29 Doctor Unassigned, [facility] MEDICAL AND SURGICAL 05:01:00 [facility] PROCEDURES DISCLOSURE AND CONSENT, 2021-12-29 Doctor Unassigned, [facility] MEDICAL AND SURGICAL 05:01:00 [facility] PROCEDURES ASSIGNMENT OF BENEFITS 2021-10-06 Doctor Unassigned, [facility] 21:37:44 [facility] [id number] 2021-05-04 ELIO [facility] [place] 00:00:00 [facility] [id number] 2021-05-04 [facility] [place] 00:00:00 [facility] COVID-19 QUALITATIVE RT-PCR 2021-04-19 Mireille Quinn [facility] 18:32:00 A. COMPREHENSIVE METABOLIC PANEL 2021-04-01 Ar[facility]a [facility] 15:25:00 HC COMPLETE BLD COUNT W/AUTO 2021-04-01 Perez Magaña [facility] DIFF 15:25:00 MAGNESIUM LEVEL 2021-04-01 Perez Magaña [facility] 15:25:00 ESTIMATED GFR 2021-04-01 Perez Magaña [facility] 15:25:00 SMEAR REVIEW 2021-04-[address] [facility] 15:25:00 COMPREHENSIVE METABOLIC PANEL 2021-03-09 [facility] 15:33:00 CBC WITH PLATELET AND 2021-03-[address] [facility] DIFFERENTIAL 15:33:00 MAGNESIUM LEVEL 2021-03-09 Perez Magaña [facility] 15:33:00 ESTIMATED GFR 2021-03-[address] [facility] 15:33:00 MANUAL DIFFERENTIAL 2021-03-09 Perez Magaña ospital 15:33:00 CT CHEST W CONTRAST 2021-03-04 Perez Magaña ospital 17:07:40 MRI ABDOMEN W WO CONTRAST 2021-03-04 Perez Magaña [facility] 07:05:00 MRI PELVIS W WO CONTRAST 2021-03-04 Perez Magaña [facility] 07:05:00 COMPREHENSIVE METABOLIC PANEL 2021-02-23 [facility] 15:51:00 CBC WITH PLATELET AND 2021-02-23 [facility] DIFFER[facility] 15:51:00 MAGNESIUM LEVEL 2021-02-23 Perez Magaña [facility] 15:51:00 ESTIMATED GFR 2021-02-23 Perez Magaña [facility] 15:51:00 MANUAL DIFFERENTIAL 2021-02-23 Perez Magaña H ospital 15:51:00 COMPREHENSIVE METABOLIC PANEL 2021-02-09 Archana Perez [facility] 14:55:00 HC COMPLETE BLD COUNT W/AUTO 2021-02-09 Perez Magaña [facility] DIFF 14:55:00 MAGNESIUM LEVEL 2021-02-09 Perez Magaña [facility] 14:55:00 ESTIMATED GFR 2021-02-09 Perez Magaña [facility] 14:55:00 COMPREHENSIVE METABOLIC PANEL 2021-01-26 [facility] 15[facility]34:00 HC COMPLETE BLD COUNT W/AUTO 2021-01-26 Perez Magaña [facility] DIFF 15:34:00 MAGNESIUM LEVEL 2021-01-26 Perez Magaña [facility] 15:34:00 ESTIMATED GFR 2021-01-26 Perez Magaña [facility] 15:34:00 CT CHEST EXTERNAL STUDY 2021-01-18 Perez Magaña [facility] 22:08:00 US VASCULAR EXTERNAL STUDY 2021-01-18 Perez Magaña [facility] 19:37:00 COMPREHENSIVE METABOLIC PANEL 2021-01-12 Archana Perez [facility] 15:53:00 HC COMPLETE BLD COUNT W/AUTO 2021-01-12 Archana Perez [facility] DIFF 15:53:00 MAGNESIUM LEVEL 2021-01-12 Perez Magaña [facility] 15:53:00 ESTIMATED GFR 2021-01-12 Perez Magaña [facility] 15:53:00 COMPREHENSIVE METABOLIC PANEL 2020-12-28 [facility] 15:33:00 HC COMPLETE BLD COUNT W/AUTO 2020-12-28 Perez Magaña [facility] DIFF 15:33:00 MAGNESIUM LEVEL 2020-12-28 Perez Magaña [facility] 15:33:00 ESTIMATED GFR 2020-12-28 Perez Magaña [facility] 15:33:00 IR PORT PLACEMENT 2020-12-25 Perez Magaña [facility] 15:53:00 CANCER ANTIGEN 19-9 2020-12-22 Perez [facility] 19:35:00 CARCINOEMBRYONIC ANTIGEN 2020-12-22 Perez Magaña [facility] (CEA) 19:35:00 CT CHEST W CONTRAST 2020-11-26 Perez Magaña ospital 18:04:00 HC COMPLETE BLD COUNT W/AUTO 2020-11-26 Perez Magaña [facility] DIFF 15:50:00 COMPREHENSIVE METABOLIC PANEL 2020-11-26 CharbelnjPerez sequeira [facility] 15:50:00 PROTHROMBIN TIME WITH INR 2020-11-26 CassandranjPerez sequeira [facility] 15:50:00 PARTIAL THROMBOPLASTIN TIME 2020-11-26 CassandraPerez naylor [facility] ([facility] 15:50:00 ESTIMATED GFR 2020-11-26 Perez Magaña [facility] leatha 15:50:00 SURGICAL PATHOLOGY REQUEST 2020-10-14 [facility] 18:48:00 US LIVER BIOPSY 2020-10-14 [facility] ital 17:41:00 CYTOLOGY (NON-GYNECOLOGICAL) 2020-10-14 [facility] REQUEST 17:00:00 MRI ABD/PELVIC EXTERNAL STUDY 2020-10-05 [facility] 05:00:00 MRI ABD/PELVIC EXTERNAL STUDY 2020-06-18 [facility] 15:07:00 POCT URINALYSIS 2019-09-21 [facility] 22:28:00 Medical Branch ASSIGNMENT OF BENEFITS 2019-08-02 Doctor Unassigned, [facility] 14:06:30 [facility] Plan of Care Planned Activity Planned Date Details Comments Source Future Scheduled 2023-03-11 COVID-19 VACCINE (#1) [facility] Test 09:43:01 [code = COVID-19 VACCINE (#1)] Future Scheduled 2023-03-11 Hepatitis C screening [facility] Test 09:43:01 (procedure) [code = 531272437] Future Scheduled 2023-03-11 BREAST CANCER [facility] Test 09:43:01 SCREENING [code = BREAST CANCER SCREENING] Future Scheduled 2023-03-11 Screening for [facility] Test 09:43:01 malignant neoplasm of colon (procedure) [code = 848654862] Future Scheduled 2023-03-11 Screening for [facility] Test 09:43:01 malignant neoplasm of colon (procedure) [code = 586099700] Future Scheduled 2023-03-11 SHINGLES VACCINES (1 Met [facility] Test 09:43:01 of 2) [code = SHINGLES VACCINES (1 of 2)] Future Scheduled 2023-03-11 65+ PNEUMOCOCCAL [facility] Test 09:43:01 VACCINE (1 - PCV) [code = 65+ PNEUMOCOCCAL VACCINE (1 - PCV)] Future Scheduled 2023-03-11 HEPATITIS B VACCINES Met [facility] Test 09:43:01 (2 of 3 - Hep B Twinrix risk 3-dose series) [code = HEPATITIS B VACCINES (2 of 3 - Hep B Twinrix risk 3-dose series)] Future Scheduled 2023-03-11 INFLUENZA VACCINE (#1) [facility] Test 09:43:01 [code = INFLUENZA VACCINE (#1)] Future Scheduled 2023-03-11 Screening for [facility] Test 09:43:01 malignant neoplasm of colon (procedure) [code = 919755480] Future Scheduled 2023-03-11 Screening for [facility] Test 09:43:01 malignant neoplasm of colon (procedure) [code = 659538413] Future Scheduled 2023-03-11 Screening for [facility] Test 09:43:01 malignant neoplasm of colon (procedure) [code = 208280017] Future Scheduled 65+ PNEUMOCOCCAL [facility] Test VACCINE (1 of 2 - PPSV23) [code = 65+ PNEUMOCOCCAL VACCINE (1 of 2 - PPSV23)] Future Scheduled COVID-19 [facility]ACCINE (1) [facility] [code = COVID-19 VACCINE (1)] Future Scheduled [facility] C [facility] (procedure) [code = 807895947] Future Scheduled [facility] SCREENING [code = BREAST CANCER SCREENING] Future Scheduled COLONOSCOPY [facility] [code = COLONOSCOPY SCREENING] Future Scheduled SHINGLES VACCINES (#1) [facility] [code = SHINGLES VACCINES (#1)] Future Scheduled [facility] [code = INFLUENZA VACCINE] Encounters Start End Encounter Admission Attending Care Care Encounter Source Date/Time Date/Time Type Type Clinicians Facility Department ID 2021-10-28 Outpatient ARIC GARCIA OPH [id number] Univers 16:04:38 [facility] 2021-10-06 Outpatient ARIC GARCIA OPH [id number] Univers 13:21:17 [facility] 2023-03-06 2023-03-06 Telephone Archana, 1.2.840.1 [id number] Methodi 00:00:00 00:00:[address] 3.430.2.7 Hospit a .3.403949 l .8 2022-12-02 2022-12-02 Orders Homer, 1.2.840.1 [id number] Methodi 00:00:00 00:00:00 Only Carley 62861.1.1 279 s t 3.430.2.7 Hospit a .3.651795 l .8 2022-12-01 2022-12-01 Office Floresita, 1.2.840.1 [id number] Methodi 10:00:00 11:06:40 Visit Dimitry 69172.1.[address] Lexie 3.430.2.7 Hospit a .3.544959 l .8 2022-12-01 2022-12-01 Lab Archana 1.2.840.1 [id number] 21 [id number] Methodi 09:30:00 09:35:[address] 3.430.2.7 Hospit a .3.710291 l .8 2022-12-01 2022-12-01 Outpatient [facility] [id number] [facility] 00:00:00 00:00:[address] PEREZ [address] 2022-12-01 2022-12-01 Outpatient [facility] [id number] [facility] 00:00:00 00:00:[address] 2022-12-01 2022-12-01 Travel 1.2.840.1 1.2.242.546 [id number] Methodi 00:00:00 00:00:[address] 3.430.2.7 0.2.7.3.698 Ho spita .3.903025 084.8 l .8 2022-11-21 2022-11-21 [facility], 1.2.840.1 [id number] 2 [id number] Methodi 13:22:41 23:59:00 Encounter Perez 64648.1.[address] 3.430.2.7 Hospit a .3.876375 l .8 2022-11-21 2022-11-21 Outpatient [facility] [id number] Union 00:00:00 00:00:00 PEREZ [address] 2022-11-21 2022-11-21 Travel 1.2.840.1 1.2.867.272 [id number] Methodi 00:00:00 00:00:[address] 3.430.2.7 0.2.7.3.698 Ho spita .3.886282 084.8 l .8 2022-11-16 2022-11-16 [facility], 1.2.840.1 [id number] 2 [id number] Methodi 10:53:14 23:59:00 Encounter Perez 49184.1.[address] 3.430.2.7 Hospit a .3.908716 l .8 2022-11-16 2022-11-16 [facility], 1.2.840.1 [id number] 2 [id number] Methodi 10:46:43 10:52:00 Encounter Perez 77431.1.[address] 3.430.2.7 Hospit a .3.984498 l .8 2022-11-16 2022-11-16 Outpatient [facility] [id number] Union 00:00:00 00:00:00 PEREZ [address] 2022-11-16 2022-11-16 Outpatient [facility] [id number] Union 00:00:00 00:00:00 PEREZ 473 Method i 2022-11-16 2022-11-16 Travel 1.2.840.1 1.2.610.655 [id number] Methodi 00:00:00 00:00:[address] 3.430.2.7 0.2.7.3.698 spita .3.597105 084.8 l .8 2022-08-04 2022-08-04 Office [facility], 1.2.840.1 [id number] Methodi 10:40:00 16:35:41 Visit Perez 76889.1.[address] 3.430.2.7 Hospit a .3.258936 l .8 2022-08-04 2022-08-04 Lab [facility], 1.2.840.1 [id number] 21 [id number] Methodi 10:20:00 10:25:[address] 3.430.2.7 Hospit a .3.817035 l .8 2022-08-04 2022-08-04 Outpatient [facility] [id number] [facility] 00:00:00 00:00:00 PEREZ [address] 2022-08-04 2022-08-04 Outpatient [facility] [id number] Union 00:00:00 00:00:00 PEREZ [address] 2022-08-04 2022-08-04 Orders Coronel, 1.2.840.1 [id number] Methodi 00:00:00 00:00:00 Only Carley 66247.1.1 128 s t 3.430.2.7 Hospit a .3.192148 l .8 2022-08-04 2022-08-04 Travel 1.2.840.1 1.2.476.293 6842 [id number] Methodi 00:00:00 00:00:[address] 3.430.2.7 0.2.7.3.698 Ho spita .3.754294 084.8 l .8 2022-06-27 2022-06-27 Telephone Pastor, 1.2.840.1 [id number] 21 [id number] Methodi 00:00:00 00:00:00 Nevin T [address]68.1.[address] 3.430.2.7 Hospit a .3.448111 l .8 2022-06-22 2022-06-22 [facility], 1.2.840.1 [id number] 2 [id number] Methodi 09:55:13 23:59:00 Encounter Perez 15870.1.[address] 3.430.2.7 Hospit a .3.216657 l .8 2022-06-22 2022-06-22 [facility], 1.2.840.1 [id number] 2 [id number] Methodi 09:54:41 09:54:41 Encounter Perez [address]606.1.[address] 3.430.2.7 Hospit a .3.148284 l .8 2022-06-22 2022-06-22 [facility], 1.2.840.1 [id number] 2 [id number] Methodi 09:53:08 09:53:08 Encounter Perez [address]498.1.[address] 3.430.2.7 Hospit a .3.476926 l .8 2022-06-22 2022-06-22 [id number] [facility] 00:00:00 00:00:00 PEREZ [address] 2022-06-22 2022-06-22 Outpatient ARCHANA, [facility] [id number] Union 00:00:00 00:00:00 PEREZ [address] 2022-06-22 2022-06-22 Outpatient ARCHANA, [facility] [id number] Union 00:00:00 00:00:00 PEREZ [address] 2022-06-22 2022-06-22 Travel 1.2.840.1 1.2.453.657 [id number] [id number] Methodi 00:00:00 00:00:[address] 3.430.2.7 0.2.7.3.698 Ho spita .3.254347 084.8 l .8 2022-04-01 2022-04-01 Orders Akintade, 1.2.840.1 [id number] Methodi 00:00:00 00:00:00 Only Felicitytan 36234.1.[address] 3.430.2.7 Hospit a .3.760595 l .8 2022-03-31 2022-03-31 [facility] 1.2.840.1 [id number] Methodi 00:00:00 00:00:[address] 3.430.2.7 Hospit a .3.537033 l .8 2022-03-30 2022-03-30 Orders Coronel, 1.2.840.1 [id number] Methodi 00:00:00 00:00:00 Only Carley 40220.1.1 310 s t 3.430.2.7 Hospit a .3.456373 l .8 2022-03-17 2022-03-17 [facility] Ernesto, 1.2.840.1 [id number] 2 [id number] Methodi 11:32:07 23:59:00 Encounter Perez 83075.1.[address] 3.430.2.7 Hospit a .3.140892 l .8 2022-03-17 2022-03-17 [facility], 1.2.840.1 [id number] 21 [id number] Methodi 15:00:00 15:20:00 Visit Perez 55644.1.[address] 3.430.2.7 Hospit a .3.845929 l .8 2022-03-17 2022-03-17 [facility], 1.2.840.1 [id number] 2 [id number] Methodi 11:31:12 11:31:12 Encounter Perez 50311.1.[address] 3.430.2.7 Hospit a .3.255167 l .8 2022-03-17 2022-03-17 [facility], 1.2.840.1 [id number] 2 [id number] Methodi 10:21:54 11:30:00 Encounter Perez 46284.1.[address] 3.430.2.7 Hospit a .3.576874 l .8 2022-03-17 2022-03-17 [facility], 1.2.840.1 [id number] 21 [id number] Methodi 10:00:00 10:05:[address] 3.430.2.7 Hospit a .3.068773 l .8 2022-03-17 2022-03-17 [facility] [id number] [id number] [facility] 00:00:00 00:00:00 PEREZ [address] 2022-03-17 2022-03-17 Outpatient [facility] [id number] Union 00:00:00 00:00:00 PEREZ [address] 2022-03-17 2022-03-17 [facility] [id number] Union 00:00:00 00:00:00 PEREZ [address] 2022-03-17 2022-03-17 [facility] [id number] [id number] Union 00:00:00 00:00:00 PEREZ [address] 2022-03-17 2022-03-17 Outpatient ARCHANA, [facility] [id number] Union 00:00:00 00:00:[address] PEREZ [address] 2022-03-17 2022-03-17 Travel 1.2.840.1 1.2.486.935 8851 [id number] Methodi 00:00:00 00:00:[address] 3.430.2.7 0.2.7.3.698 Ho spita .3.936061 084.8 l .8 2022-03-04 2022-03-04 Outpatient ARCHANA [facility] [id number] Union 00:00:00 00:00:00 CHIRAGDELORIS 552 Method i 2022-01-05 2022-01-05 [facility] 1.2.463.113 [id number] Univers 10:44:00 13:10:00 Encounter Vincent GUERRERO 350.1.13.10 ity [facility] 4.2.7.2.686 [facility] SURGICAL [id number] [facility] 071 Branch 2022-01-05 2022-01-05 [facility]PH [id number] Univers 10:44:00 13:10:00 VINCENT bowen [facility] 2022-01-05 2022-01-05 [facility] 1.2.840.114 [id number] Univers 11:15:00 11:54:00 Vincent GUERRERO 350.1.13.10 ity [facility] 4.2.7.2.686 [facility] [id number] [facility] 020 Branch 2022-01-03 2022-01-03 Outpatient R [facility] [id number] Univers 11:00:00 11:00:00 VINCENT bowen [facility] 2022-01-03 2022-01-03 Laboratory Only, Adc Test [facility] 1.2.840. 114 [id number] Univers 10:45:00 11:00:00 Only Vincent Ruiz 350.1.13.1 0 ity [facility] 4.2.7.2.686 [facility] [id number] [facility] 353 Branch 2021-11-11 2021-11-11 Outpatient DAMIENGRACEHua [facility] [id number] Union 00:00:00 00:00:00 PEREZ 201 Method i 2021-10-11 2021-10-11 Laboratory Only, Adc Test [facility] 1.2.840. 114 [id number] Univers 09:45:00 10:00:00 Only Micheline Cope 350.1.13.10 ity [facility] 4.2.7.2.686 [facility] [id number] [facility] [address] [place] 2021-10-11 2021-10-11 [facility] [id number] Univers 09:45:00 09:45:00 MICHELINE patricia [facility] 2021-10-06 2021-10-06 [employer] Kilo, Adc Lab Main [facility] 1.2.8 40.114 [id number] Univers 17:00:00 17:15:00 Visit Micheline Cope 350.1.13.10 ity [facility] 4.2.7.2.686 [id number] Ut dical [address] 2021-10-06 2021-10-06 [facility] [id number] Univers 17:00:00 17:00:00 MICHELINE patricia [facility] 2021-10-06 2021-10-06 Orders Doctor AMAYA 1.2.840.114 [id number] Univers 00:00:00 00:00:00 Only Unassigned, KATARZYNA 350.1.13.10 ity of [facility] 4.2.7.2.686 [facility] [id number] [facility] 009 Branch 2021-08-23 2021-08-23 Outpatient ARCHANA [facility] [id number] Union 00:00:00 00:00:00 PEREZ 418 Method i 2021-08-23 2021-08-23 Outpatient DAMIENCYNDY [facility] [id number] [facility] 00:00:00 00:00:00 PEREZ 673 Method i 2021-08-23 2021-08-23 Outpatient ABDELRAHIM, [facility] [id number] Union 00:00:00 00:00:00 PEREZ [address] 2021-07-29 2021-07-29 Outpatient BAKARI, [facility] [id number] Union 00:00:00 00:00:00 DELANO [address] 2021-07-27 2021-07-27 Outpatient ABDELRAHIM, [facility] [id number] Union 00:00:00 00:00:00 PEREZ [address] 2021-07-22 2021-07-22 Outpatient ABDELRAHIM, [facility] [id number] Union 00:00:00 00:00:00 PEREZ [address] 2021-07-22 2021-07-22 Outpatient ABDELRAHIM, [facility] [id number] [facility] 00:00:00 00:00:00 PEREZ [address] 2021-07-22 2021-07-22 Outpatient ABDELRAHIM, [facility] [id number] Union 00:00:00 00:00:00 PEREZ [address] 2021-06-28 2021-06-28 Outpatient BAKARI, [facility] [id number] Union 00:00:00 00:00:00 DELANO [address] 2021-06-16 2021-06-23 Inpatient SAHARIA, [facility] [id number] Union 00:00:00 00:00:00 NIRAJ [address] 2021-06-11 2021-06-11 Outpatient SAHARIA, [facility] [id number] [facility] 00:00:00 00:00:00 NIRAJ [address] 2021-06-09 2021-06-09 Outpatient SAHARIA, [facility] [id number] [facility] 00:00:00 00:00:00 NIRAJ [address] 2021-06-07 2021-06-07 Outpatient SAHARIA, [facility] [id number] [facility] 00:00:00 00:00:00 NIRAJ [address] 2021-06-01 2021-06-01 Outpatient ABDELRAHIM, [facility] [id number] [facility] 00:00:00 00:00:00 PEREZ [address] 2021-06-01 2021-06-01 Outpatient ARCHANA, [facility] [id number] [facility] 00:00:00 00:00:00 PEREZ [address] 2021-05-05 2021-05-06 Inpatient MATT Workman, [facility].01 [id number] [facility] 20:40:00 05:08:00 Ladarius 89 [facility] 2021-05-04 2021-05-05 Inpatient ESTHER Mccain, [facility] INTE [id number] [facility] 15:33:00 12:01:00 Holger 95 [facility] 2021-04-27 2021-04-27 Outpatient ESTHER Cuba, [facility] [id number] [facility] 08:30:00 08:30:00 Vinny 30 [facility] 2021-04-26 2021-04-26 Telephone Tony, 1.2.840.1 [id number] Methodi 00:00:00 00:00:[address] 3.430.2.7 Hospit a .3.701002 l .8 2021-04-22 2021-04-22 Telephone Aleisha, 1.2.840.1 [id number] [id number] Methodi 00:00:00 00:00:[address] 3.430.2.7 Hospit a .3.551962 l .8 2021-04-19 2021-04-19 Outpatient KAI, [facility] [id number] [place] 00:00:00 00:00:00 [place] [address] 2021-04-19 2021-04-19 Travel 1.2.840.1 1.2.874.931 [id number] Methodi 00:00:00 00:00:[address] 3.430.2.7 0.2.7.3.698 Ho spita .3.423501 084.8 l .8 2021-04-15 2021-04-15 Orders Kai, 1.2.840.1 [id number] 86891 45060 Methodi 00:00:00 00:00:00 Only Mireille Sigala 19341.1.[address] 3.430.2.7 Hospit a .3.711236 l .8 2021-04-13 2021-04-13 Orders Archana, 1.2.840.1 [id number] Methodi 00:00:00 00:00:00 Only Perez 68511.1.[address] 3.430.2.7 Hospit a .3.012863 l .8 2021-04-08 2021-04-08 Orders Esther Wagner, 1.2.840.1 [id number] Methodi 00:00:00 00:00:00 Only Shonda 49551.1.[address] 3.430.2.7 Hospit a .3.410008 l .8 2021-04-07 2021-04-07 Office Frank Tonyangela Yasir 1.2.840.1 [id number] Methodi 14:04:58 14:34:58 Visit Mireille Quinn 22015.1.[address] 3.430.2.7 Hospit a .3.543975 l .8 2021-04-07 2021-04-07 Travel 1.2.840.1 1.2.740.931 6638 [id number] Methodi 00:00:00 00:00:[address] 3.430.2.7 0.2.7.3.698 Ho spita .3.470548 084.8 l .8 2021-04-02 2021-04-02 Telephone Akintaspike, 1.2.840.1 [id number] 21 [id number] Methodi 00:00:00 00:00:[address] 3.430.2.7 Hospit a .3.425279 l .8 2021-04-01 2021-04-01 Infusion Abdbrie, 1.2.840.1 [id number] 2 [id number] Methodi 10:06:31 14:06:[address] 3.430.2.7 Hospit a .3.786660 l .8 2021-04-01 2021-04-01 Office Anymadhureinaldomiquel, 1.2.840.1 [id number] 2100 [id number] Methodi 10:30:00 11:00:00 Visit Odasy 91204.1.[address] Lexie 3.430.2.7 Hospit a .3.582118 l .8 2021-04-01 2021-04-01 Travel 1.2.840.1 1.2.121.053 4555 944896 Methodi 00:00:00 00:00:[address] 3.430.2.7 0.2.7.3.698 Ho spita .3.328792 084.8 l .8 2021-04-01 2021-04-01 Telephone Charles, 1.2.840.1 [id number] 21 [id number] Methodi 00:00:00 00:00:[address] 3.430.2.7 Hospit a .3.923703 l .8 2021-03-31 2021-03-31 Orders [place], 1.2.840.1 [id number] 532660 2617 Methodi 00:00:00 00:00:00 Only Bob A 20273.1.[address] 3.430.2.7 Hospit a .3.748185 l .8 2021-03-31 2021-03-31 Orders Akintade, 1.2.840.1 [id number] 2099 129071 Methodi 00:00:00 00:00:00 Only Olaitan 30153.1.[address] 3.430.2.7 Hospit a .3.590642 l .8 2021-03-31 2021-03-31 Telephone Archana, 1.2.840.1 [id number] Methodi 00:00:00 00:00:[address] 3.430.2.7 Hospit a .3.876809 l .8 2021-03-29 2021-03-29 Telephone Bakari, 1.2.840.9 [id number] 21 [id number] Methodi 00:00:00 00:00:[address] 3.430.2.7 Hospit a .3.505414 l .8 2021-03-22 2021-03-22 Telephone Archana, 1.2.840.1 [id number] Methodi 00:00:00 00:00:[address] 3.430.2.7 Hospit a .3.743425 l .8 2021-03-18 2021-03-18 Telephone Archana, 1.2.840.1 [id number] Methodi 00:00:00 00:00:[address] 3.430.2.7 Hospit a .3.442014 l .8 2021-03-16 2021-03-16 Orders Homer, 1.2.840.1 [id number] 375344 9854 Methodi 00:00:00 00:00:00 Only Carley 64063.1.1 684 s t 3.430.2.7 Hospit a .3.526871 l .8 2021-03-09 2021-03-09 Office Archana, 1.2.840.1 [id number] 21 [id number] Methodi 17:39:10 17:39:25 Visit Perez 41815.1.[address] 3.430.2.7 Hospit a .3.571629 l .8 2021-03-09 2021-03-09 Infusion Archana, 1.2.840.1 [id number] 2 [id number] Methodi 10:08:43 14:08:[address] 3.430.2.7 Hospit a .3.234144 l .8 2021-03-09 2021-03-09 Travel 1.2.840.1 1.2.778.468 9492 980730 Methodi 00:00:00 00:00:[address] 3.430.2.7 0.2.7.3.698 Ho spita .3.255062 084.8 l .8 2021-03-04 2021-03-04 [facility], 1.2.840.1 [id number] 2 [id number] Methodi 12:00:15 23:59:00 Encounter Perez 24308.1.[address] 3.430.2.7 Hospit a .3.273462 l .8 2021-03-04 2021-03-04 [facility], 1.2.840.1 [id number] 2 [id number] Methodi 11:59:59 11:59:59 Encounter Perez 11028.1.[address] 3.430.2.7 Hospit a .3.572173 l .8 2021-03-04 2021-03-04 [facility], 1.2.840.1 [id number] 2 [id number] Methodi 10:27:44 11:58:00 Encounter Perez 93530.1.[address] 3.430.2.7 Hospit a .3.497860 l .8 2021-03-04 2021-03-04 Travel 1.2.840.1 1.2.566.509 6326 700301 Methodi 00:00:00 00:00:[address] 3.430.2.7 0.2.7.3.698 Ho spita .3.023224 084.8 l .8 2021-02-23 2021-02-23 [facility], 1.2.840.1 [id number] 2 [id number] Methodi 10:22:12 14:22:[address] 3.430.2.7 Hospit a .3.106674 l .8 2021-02-23 2021-02-23 [facility] Floresita, 1.2.840.1 [id number] 2100 [id number] Methodi 10:30:00 11:00:00 Visit Dimitry 34110.1.[address] Lexie 3.430.2.7 Hospit a .3.642797 l .8 2021-02-23 2021-02-23 Travel 1.2.840.1 1.2.876.388 0680 979457 Methodi 00:00:00 00:00:[address] 3.430.2.7 0.2.7.3.698 Ho spita .3.108067 084.8 l .8 2021-02-17 2021-02-17 [facility], 1.2.840.1 [id number] Methodi 00:00:00 00:00:[address] 3.430.2.7 Hospit a .3.854304 l .8 2021-02-16 2021-02-16 Orders Coronel, 1.2.840.1 [id number] 932981 9209 Methodi 00:00:00 00:00:00 Only Carley 39499.1.1 576 s t 3.430.2.7 Hospit a .3.062813 l .8 2021-02-10 2021-02-10 [facility], 1.2.840.1 [id number] 2 [id number] Methodi 11:50:06 23:59:00 Encounter Perez 56314.1.[address] 3.430.2.7 Hospit a .3.351922 l .8 2021-02-10 2021-02-10 [facility], 1.2.840.1 [id number] 2 [id number] Methodi 11:48:32 11:49:00 Encounter Perez 71862.1.[address] 3.430.2.7 Hospit a .3.306842 l .8 2021-02-09 2021-02-09 [facility], 1.2.840.1 [id number] 2 [id number] Methodi 09:23:43 13:23:[address] 3.430.2.7 Hospit a .3.964237 l .8 2021-02-09 2021-02-09 Office Cassandraesthercyndy, 1.2.840.1 [id number] 21 [id number] Methodi 11:29:31 11:49:31 Visit Perez 23970.1.[address] 3.430.2.7 Hospit a .3.478563 l .8 2021-02-09 2021-02-09 Travel 1.2.840.1 1.2.492.827 7446 972370 Methodi 00:00:00 00:00:[address] 3.430.2.7 0.2.7.3.698 Ho spita .3.595773 084.8 l .8 2021-02-08 2021-02-08 [facility] Archana, 1.2.840.1 [id number] 21 [id number] Methodi 00:00:00 00:00:00 Only Perez 69373.1.[address] 3.430.2.7 Hospit a .3.994787 l .8 2021-01-26 2021-01-26 [facility], 1.2.840.1 [id number] 2 [id number] Methodi 10:09:22 14:09:[address] 3.430.2.7 Hospit a .3.299141 l .8 2021-01-26 2021-01-26 Travel 1.2.840.1 1.2.273.317 4236 260700 Methodi 00:00:00 00:00:[address] 3.430.2.7 0.2.7.3.698 Ho spita .3.091612 084.8 l .8 2021-01-16 2021-01-16 Etta Otoole 1.2.840.1 [id number] 764 [id number] Methodi 14:01:18 14:59:[address] Care 3.430.2.7 Hospit a .3.548949 l .8 2021-01-12 2021-01-12 Infusion Charbelgracehua, 1.2.840.1 [id number] 2 [id number] Methodi 10:28:13 14:28:[address] 3.430.2.7 Hospit a .3.291837 l .8 2021-01-12 2021-01-12 Office Perez Magaña 1.2.840.1 4349724 02 [id number] Methodi 10:30:00 11:00:00 Visit Griseldareinaldomiquel Valeireney Owen 79871.1.[address] 3.430.2.7 Hospit a .3.862126 l .8 2021-01-12 2021-01-12 Oncology Tram, 1.2.840.1 [id number] 21 [id number] Methodi 00:00:00 00:00:00 [facility] Becky 03237.1.[address] ip 3.430.2.7 Hospit a .3.195341 l .8 2021-01-12 2021-01-12 Travel 1.2.840.1 1.2.789.398 7729 916563 Methodi 00:00:00 00:00:[address] 3.430.2.7 0.2.7.3.698 Ho spita .3.279590 084.8 l .8 2021-01-05 2021-01-05 Orders Holgere, 1.2.840.1 [id number] 2100 718016 Methodi 00:00:00 00:00:00 Only Odasy 05792.1.[address] Lexie 3.430.2.7 Hospit a .3.464691 l .8 2021-01-05 2021-01-05 Orders Elemadhurde, 1.2.840.1 [id number] 2100 915594 Methodi 00:00:00 00:00:00 Only Odasy 11956.1.[address] Lexie 3.430.2.7 Hospit a .3.925561 l .8 2021-01-05 2021-01-05 Telephone Archana, 1.2.840.1 [id number] Methodi 00:00:00 00:00:[address] 3.430.2.7 Hospit a .3.116687 l .8 2020-12-30 2020-12-30 Orders Coronel, 1.2.840.1 757875004 758465 6193 Methodi 00:00:00 00:00:00 Only Carley 33838.1.1 739 s t 3.430.2.7 Hospit a .3.259365 l .8 2020-12-30 2020-12-30 Orders Chintapenta 1.2.840.1 [id number] 21 [id number] Methodi 00:00:00 00:00:00 Only , Kathy 75569.1.[address] 3.430.2.7 Hospit a .3.550750 l .8 2020-12-30 2020-12-30 Telephone Floresita, 1.2.840.1 [id number] Methodi 00:00:00 00:00:[address] Lexie 3.430.2.7 Hospit a .3.977508 l .8 2020-12-30 2020-12-30 Orders Elebeckye, 1.2.840.1 [id number] 2099 133942 Methodi 00:00:00 00:00:00 Only Odasy 68355.1.[address] Lexie 3.430.2.7 Hospit a .3.133756 l .8 2020-12-30 2020-12-30 Telephone Holgere, 1.2.840.1 839561070 [id number] Methodi 00:00:00 00:00:[address] Lexie 3.430.2.7 Hospit a .3.865100 l .8 2020-12-28 2020-12-28 [facility], 1.2.840.1 114396502 2 [id number] Methodi 09:38:01 13:38:[address] 3.430.2.7 Hospit a .3.954771 l .8 2020-12-28 2020-12-28 Oncology [facility], 1.2.840.1 [id number] 21 [id number] Methodi 00:00:00 00:00:00 [facility] Becky 91321.1.[address] ip 3.430.2.7 Hospit a .3.381145 l .8 2020-12-28 2020-12-28 Travel 1.2.840.1 1.2.178.540 8099 857107 Methodi 00:00:00 00:00:[address] 3.430.2.7 0.2.7.3.698 Ho spita .3.730903 084.8 l .8 2020-12-28 2020-12-28 [facility], 1.2.840.1 [id number] 21 [id number] Methodi 00:00:00 00:00:00 Only Perez 91540.1.[address] 3.430.2.7 Hospit a .3.199251 l .8 2020-12-25 2020-12-25 [facility], 1.2.840.1 [id number] 2 [id number] Methodi 08:18:57 23:59:00 Encounter Perez 20150.1.[address] 3.430.2.7 Hospit a .3.337135 l .8 2020-12-24 2020-12-24 Travel 1.2.840.1 1.2.182.080 3756 034438 Methodi 00:00:00 00:00:[address] 3.430.2.7 0.2.7.3.698 Ho spita .3.971863 084.8 l .8 2020-12-22 2020-12-22 [facility], 1.2.840.1 [id number] 21 [id number] Methodi 16:30:02 16:35:[address] 3.430.2.7 Hospit a .3.890908 l .8 2020-12-22 2020-12-22 Office Ernesto, 1.2.840.1 [id number] 21 [id number] Methodi 15:31:58 15:51:58 Visit Perez 53235.1.[address] 3.430.2.7 Hospit a .3.644102 l .8 2020-12-22 2020-12-22 Orders Coronel, 1.2.840.1 [id number] 573604 1290 Methodi 00:00:00 00:00:00 Only Carley 02801.1.1 282 s t 3.430.2.7 Hospit a .3.875223 l .8 2020-12-22 2020-12-22 Travel 1.2.840.1 1.2.484.044 2155 706212 Methodi 00:00:00 00:00:[address] 3.430.2.7 0.2.7.3.698 Ho spita .3.266873 084.8 l .8 2020-12-14 2020-12-14 [facility], 1.2.840.1 [id number] 2 [id number] Methodi 23:59:00 23:59:00 Encounter Perez 26539.1.[address] 3.430.2.7 Hospit a .3.713419 l .8 2020-12-14 2020-12-14 Travel 1.2.840.1 1.2.425.449 6616 569147 Methodi 00:00:00 00:00:[address] 3.430.2.7 0.2.7.3.698 Ho spita .3.062603 084.8 l .8 2020-12-11 2020-12-11 Documentat Provider, 1.2.840.1 [id number] 2 [id number] Methodi 00:00:00 00:00:00 ion Unknown 12181.1.[address] 3.430.2.7 Hospit a .3.103398 l .8 2020-12-11 2020-12-11 Telephone Archana, 1.2.840.1 [id number] Methodi 00:00:00 00:00:[address] 3.430.2.7 Hospit a .3.546844 l .8 2020-11-30 2020-11-30 Telephone Floresita, 1.2.840.1 [id number] 21 [id number] Methodi 00:00:00 00:00:[address] Lexie 3.430.2.7 Hospit a .3.446452 l .8 2020-11-27 2020-11-27 Telephone [facility], 1.2.840.1 [id number] Methodi 00:00:00 00:00:[address] 3.430.2.7 Hospit a .3.782463 l .8 2020-11-26 2020-11-26 [facility], 1.2.840.1 [id number] 2 [id number] Methodi 11:23:34 23:59:00 Encounter Perez 97246.1.[address] 3.430.2.7 Hospit a .3.654713 l .8 2020-11-26 2020-11-26 [facility], 1.2.840.1 [id number] 21 [id number] Methodi 10:44:07 10:49:[address] 3.430.2.7 Hospit a .3.263348 l .8 2020-11-26 2020-11-26 Orders Chintapenta 1.2.840.1 [id number] 21 [id number] Methodi 00:00:00 00:00:00 Only , Kathy 91512.1.[address] 3.430.2.7 Hospit a .3.212677 l .8 2020-11-26 2020-11-26 Travel 1.2.840.1 1.2.844.731 5377 164977 Methodi 00:00:00 00:00:[address] 3.430.2.7 0.2.7.3.698 Ho spita .3.677882 084.8 l .8 2020-11-25 2020-11-25 Telephone Archana, 1.2.840.1 [id number] Methodi 00:00:00 00:00:[address] 3.430.2.7 Hospit a .3.682636 l .8 2020-11-25 2020-11-25 Travel 1.2.840.1 1.2.335.598 5884 837157 Methodi 00:00:00 00:00:[address] 3.430.2.7 0.2.7.3.698 Ho spita .3.559870 084.8 l .8 2020-11-25 2020-11-25 Orders Archana, 1.2.840.1 [id number] 21 [id number] Methodi 00:00:00 00:00:00 Only Maen 80051.1.[address] 3.430.2.7 Hospit a .3.975241 l .8 2020-11-24 2020-11-24 Documentat Provider, 1.2.840.1 [id number] 2 [id number] Methodi 00:00:00 00:00:00 ion Unknown 28548.1.[address] 3.430.2.7 Hospit a .3.042220 l .8 2020-11-24 2020-11-24 Telephone Floresita, 1.2.840.1 [id number] 21 [id number] Methodi 00:00:00 00:00:[address] Lexie 3.430.2.7 Hospit a .3.910088 l .8 2020-11-24 2020-11-24 Orders Chint[place] 1.2.840.1 [id number] Methodi 00:00:00 00:00:00 Only , Kathy 67426.1.[address] 3.430.2.7 Hospit a .3.375876 l .8 2020-11-23 2020-11-23 Telephone Archana, 1.2.840.1 [id number] Methodi 00:00:00 00:00:[address] 3.430.2.7 Hospit a .3.333620 l .8 2020-11-23 2020-11-23 Travel 1.2.840.1 1.2.009.378 3658 695056 Methodi 00:00:00 00:00:[address] 3.430.2.7 0.2.7.3.698 Ho spita .3.076028 084.8 l .8 2020-11-20 2020-11-20 Orders Coronel, 1.2.840.1 [id number] 795872 3654 Methodi 00:00:00 00:00:00 Only Carley 26195.1.1 182 s t 3.430.2.7 Hospit a .3.394204 l .8 2020-11-12 2020-11-12 Office Archana, 1.2.840.1 [id number] 21 [id number] Methodi 15:02:22 16:02:22 Visit Perez 21496.1.[address] 3.430.2.7 Hospit a .3.437968 l .8 2020-11-12 2020-11-12 Travel 1.2.840.1 1.2.356.977 5040 314357 Methodi 00:00:00 00:00:[address] 3.430.2.7 0.2.7.3.698 Ho spita .3.389984 084.8 l .8 2020-11-11 2020-11-11 Oncology [facility], 1.2.840.1 [id number] 21 [id number] Methodi 00:00:00 00:00:00 [facility] 08061.1.[address] ip 3.430.2.7 Hospit a .3.355609 l .8 2020-11-11 2020-11-11 Telephone Archana, 1.2.840.1 [id number] Methodi 00:00:00 00:00:[address] 3.430.2.7 Hospit a .3.106085 l .8 2020-11-03 2020-11-03 [facility], 1.2.840.1 [id number] 17722 51061 Methodi 09:54:38 23:59:00 Encounter Neto García 64050.1.[address] 3.430.2.7 Hospit a .3.447935 l .8 2020-10-14 2020-10-14 [facility], 1.2.840.1 [id number] 92876 33657 Methodi 08:38:22 23:59:00 Encounter Neto Fagan. 15190.1.[address] 3.430.2.7 Hospit a .3.024292 l .8 2020-10-14 2020-10-14 Travel 1.2.840.1 1.2.328.481 8639 633950 Methodi 00:00:00 00:00:[address] 3.430.2.7 0.2.7.3.698 Ho spita .3.415850 084.8 l .8 2020-10-08 2020-10-08 Travel 1.2.840.1 1.2.311.905 0081 257844 Methodi 00:00:00 00:00:[address] 3.430.2.7 0.2.7.3.698 Ho spita .3.436235 084.8 l .8 2020-10-08 2020-10-08 Transcribe [facility], 1.2.840.1 [id number] 285 [id number] Methodi 00:00:00 00:00:00 Orders Neto García 11625.1.[address] 3.430.2.7 Hospit a .3.580392 l .8 2020-10-08 2020-10-08 [facility].2.840.1 [id number] 522 1372218 Methodi 00:00:00 00:00:00 Orders Neto García 08157.1.[address] 3.430.2.7 Hospit a .3.640155 l .8 2020-10-08 2020-10-08 Telephone Dee Dee Dumont 1.2.840.1 [id number] Methodi 00:00:00 00:00:[address] 3.430.2.7 Hospit a .3.010379 l .8 2020-08-13 2020-08-13 [facility], 1.2.840.1 [id number] 40918 33352 Methodi 14:52:07 23:59:00 Encounter Neto García 26020.1.[address] 3.430.2.7 Hospit a .3.189075 l .8 2019-09-22 2019-09-22 [facility] 1.2.708.544 0954 2212 Univers 00:00:00 00:00:00 [facility] 350.1.13.10 it y of Surgical 4.2.7.2.686 Adryan as Specialti 357.2644026 Ut dical [address] [facility] 2019-09-22 2019-09-22 [facility] 1.2.608.986 6677 2 00:00:00 00:00:00 [facility] 350.1.13.10 Surgical 4.2.7.2.686 Specialti [phone] es [address] [place] 2019-09-21 2019-09-21 Urgent Collins [facility] 1.2.840.114 7 [id number] Univers 17:16:48 17:31:48 Care Unknown, [facility] 350.1.13.10 ity of Surgical 4.2.7.2.686 Adryan as Specialti 205.6685873 Me dical es [address] [facility] 2019-09-21 2019-09-21 Urgent [place], [facility] 1.2.840.114 [id number] 33 17:16:48 17:31:48 Care [facility] 350.1.13.10 Surgical 4.2.7.2.686 Specialti [id number] es [address] 2019-09-21 2019-09-21 Outpatient R UNKNOWN, [facility] [id number] Univers 17:15:00 17:15:00 ATTENDING ity [facility] 2019-08-02 2019-08-02 Special Needs Bus Driver Kilo, Adc Lab Main [facility] 1.2.8 40.114 [id number] [facility] 08:09:06 08:24:06 Visit Mahendra Ashlee Jose Carlos [place] 350.1.13 .10 ity of [place] 4[place].7.2.[place] Profess[place] [phone] Ut dical [address] 2019-08-02 2019-08-02 Special Needs Bus Driver Kilo, [facility] 1.2.840.114 [id number] 08:09:06 08:24:06 Visit Lab Main [place] 350.1.13.10 [place] 4.2.7.2.686 Professio [phone] [address] 2019-08-02 2019-08-02 Orders Doctor MONIQUE 1.2.840.114 [id number] Univers 00:00:00 00:00:00 Only Unassigned, KATARZYNA 350.1.13.10 ity of [place] [facility] 4.2.7.2.686 Adryan as [phone] [address] 2019-08-02 2019-08-02 Orders Doctor MONIQUE 1.2.840.114 [id number] 60 00:00:00 00:00:00 Only Unassigned, KATARZYNA 350.1.13.10 [place] [facility] [phone] 009 Results Test Description Test Time Test Comments Results Result Comments Source POC creatinine 2022-11-21 18:49:00 Test Item Value Reference Range Interpretation Comme nts POC creatinine (test code = 0.9 mg/dl 0.5-0.9 Garment Sewer Hand Name: Altenhoff Boothe 65817-5) BDevice ID: [id number] [facility] [Presence] in Respiratory specimen by GARRET with probe [id number] 22:35:27 Test Item Value Reference Range Interpretation Comments SARS-CoV-2 (COVID-19) RNA Not detected Not-Detected [Presence] in Respiratory specimen by GARRET with probe detection (test code = 45731-5) Whether patient is employed in a healthcare setting (test code = 64286-0) Whether the patient has symptoms related to condition of interest (test code = 07966-9) Patient was hospitalized because of this condition (test code = 17481-2) Whether the patient was admitted to intensive care unit (ICU) for condition of interest (test code = 49143-0) Whether patient resides in a congregate care setting (test code = 99884-7) [facility] [id number] 20:16:00 Test Item Value Reference Range Interpretation Comments LIPOPROTEIN LDL 219.0 mg/dL 0-100 H <100 OPTIMAL 100-129 (test code = LDL) NEAR OPTIM AL/ABOVE [id number] HIGH>ZZ=558 JOSE FRANCISCO Y HIGH*Guidelines provided by the National Choles terol [facility] Adult Treatment Panel III BASIC METABOLIC [id number] 19:54:00 Test Item Value Reference Range Interpretation Comments SODIUM (test code = NA) 130 mEq/L 134-147 L POTASSIUM (test code = 3.7 mEq/L 3.4-5.0 N K) CHLORIDE (test code = 98 mEq/L 100-108 L CL) CARBON DIOXIDE (test 24 mEq/l 21-33 N code = CO2) ANION GAP (test code = 12 0-20 N GAP) GLUCOSE (test code = 118 mg/dL 70-110 H GLU) BLOOD UREA NITROGEN 14 mg/dL 7-18 N (test code = BUN) GLOMERULAR FILTRATION 54.5 70-80 L Units of measure = RATE (test code = GFR) ml/mi n/1.73 m2 CREATININE (test code = 1.0 mg/dL 0.6-1.3 N CREAT) CALCIUM (test code = 8.6 mg/dL 8.0-10.5 N CA) HEPATIC FUNCTION [id number] 19:54:00 Test Item Value Reference Range Interpretation Comments TOTAL PROTEIN (test code = PROT) 7.0 g/dL 6.4-8.2 N ALBUMIN (test code = ALB) 3.60 g/dL 3.4-5.0 N BILIRUBIN TOTAL (test code = BILT) 0.50 mg/dL 0.0-1.0 N BILIRUBIN DIRECT (test code = 0.10 MG/DL 0.0-0.30 N BILD) BILIRUBIN INDIRECT (test code = 0.40 MG/DL BILIND) SGOT/AST (test code = AST) 43 IUnit/L 15-37 H SGPT/ALT (test code = ALT) 18 IUnit/L 30-65 L ALKALINE PHOSPHATASE TOTAL (test 75 IUnit/L 20-125 N code = ALKP) TROP-I HIGH [id number] 19:54:00 Test Item Value Reference Range Interpretation Comments TROP-I HIGH 1188 ng/L 0-34 HH Critical result called to SENSITIVITY (test MARZENA SHANKAR SON, RNby code = TROPIHS) G.LAB.ATD at 195205/05/21Nurse r ead back result and tech confirmed it's correct? Y ESCAUTION: Units of the cu rrent test methodology (ng /L) differfrom the prior test methodology (ng /mL) by a factor of 1000. 99t h Percentile Uppe r Reference Limit (URL): Fe males: 34 ng/LMales: 54 n g/L In order to distin guish acute elevations of h igh sensitivitytrop onin from other clinical conditions, the FourthUnive rsal Definition of M yocardial Infarction stressesclinica l assessment and the demonstration o f a rise and/orfall in s erial troponin result s above the URL. These resu lts were obtained using Siemens Atellica IM TnI Hreagent. Results from di fferent methodologies s hould not becompared to o ne another as quantitative results and URLs mayvar y by method. LACTIC [id number] 19:36:00 Test Item Value Reference Range Interpretation Comments LACTIC ACID (test code = LACT) 1.2 mmol/L 0.4-1.9 N CBC W/AUTO [id number] 19:29:00 Test Item Value Reference Range Interpretation Comments WHITE BLOOD CELL (test code = 6.9 x10 3/uL 4.5-11.0 WBC) RED BLOOD CELL (test code = 2.37 x10 6/uL 3.54-5.02 L RBC) HEMOGLOBIN (test code = HGB) 7.9 g/dL 11.0-15.0 L HEMATOCRIT (test code = HCT) 23.5 % 33.0-45.0 L MEAN CELL VOLUME (test code = 99.2 fL 81.0-99.0 H MCV) MEAN CELL HGB (test code = MCH) 33.3 pg 27.0-33.0 H MEAN CELL HGB CONCETRATION 33.6 g/dL 33.0-37.0 N (test code = MCHC) RED CELL DISTRIBUTION WIDTH CV 15.0 % 11.5-14.5 H (test code = RDW) RED CELL DISTRIBUTION WIDTH SD 54.3 fL 37.0-54.0 H (test code = RDW-SD) PLATELET COUNT (test code = 120 x10 3/uL 150-400 L PLT) MEAN PLATELET VOLUME (test code 12.8 fL 7.0-9.0 H = MPV) NEUTROPHIL % (test code = NT%) 68.4 % 56.0-77.0 N IMMATURE GRANULOCYTE % (test 0.4 % 0.0-2.0 N code = IG%) LYMPHOCYTE % (test code = LY%) 18.1 % 14.0-32.0 N MONOCYTE % (test code = MO%) 11.8 % 4.8-9.0 H EOSINOPHIL % (test code = EO%) 1.0 % 0.3-3.7 N BASOPHIL % (test code = BA%) 0.3 % 0.0-2.0 N NUCLEATED RBC % (test code = 0.0 % 0-0 N NRBC%) NEUTROPHIL # (test code = NT#) 4.73 x10 3/uL 2.0-7.6 N IMMATURE GRANULOCYTE # (test 0.03 x10 3/uL 0.00-0.03 N code = IG#) LYMPHOCYTE # (test code = LY#) 1.25 x10 3/uL 1.0-3.8 N MONOCYTE # (test code = MO#) 0.82 x10 3/uL 0.1-0.8 H EOSINOPHIL # (test code = EO#) 0.07 x10 3/uL 0.0-0.2 N BASOPHIL # (test code = BA#) 0.02 x10 3/uL 0.0-0.2 N NUCLEATED RBC # (test code = 0.00 x10 3/uL 0.0-0.1 N NRBC#) MANUAL DIFF REQUIRED (test code NO = MDIFF) COMPREHENSIVE METABOLIC [id number] 05:08:00 Test Item Value Reference Range Interpretation Comments SODIUM (test code = NA) 138 mEq/L 134-147 N POTASSIUM (test code = 3.9 mEq/L 3.4-5.0 N K) CHLORIDE (test code = 106 mEq/L 100-108 N CL) CARBON DIOXIDE (test 24 mEq/l 21-33 N code = CO2) ANION GAP (test code = 12 0-20 N GAP) GLUCOSE (test code = 93 mg/dL 70-110 N GLU) BLOOD UREA NITROGEN 13 mg/dL 7-18 (test code = BUN) GLOMERULAR FILTRATION 70.5 70-80 N Units of measure = RATE (test code = GFR) ml/mi n/1.73 m2 CREATININE (test code = 0.8 mg/dL 0.6-1.3 N CREAT) TOTAL PROTEIN (test 6.4 g/dL 6.4-8.2 N code = PROT) ALBUMIN (test code = 3.00 g/dL 3.4-5.0 L ALB) CALCIUM (test code = 8.4 mg/dL 8.0-10.5 N CA) BILIRUBIN TOTAL (test 0.40 mg/dL 0.0-1.0 N code = BILT) SGOT/AST (test code = 40 IUnit/L 15-37 H AST) SGPT/ALT (test code = 14 IUnit/L 30-65 L ALT) ALKALINE PHOSPHATASE 69 IUnit/L 20-125 N TOTAL (test code = ALKP) [id number] 05:08:00 Test Item Value Reference Range Interpretation Comments PHOSPHOROUS (test code = PHOS) 5.0 MG/DL 2.5-4.9 H CBC W/AUTO [id number] 04:59:00 Test Item Value Reference Range Interpretation Comments WHITE BLOOD CELL (test code = 4.9 x10 3/uL 4.5-11.0 N WBC) RED BLOOD CELL (test code = 2.37 x10 6/uL 3.54-5.02 L RBC) HEMOGLOBIN (test code = HGB) 7.8 g/dL 11.0-15.0 L HEMATOCRIT (test code = HCT) 23.7 % 33.0-45.0 L MEAN CELL VOLUME (test code = 100.0 fL 81.0-99.0 H MCV) MEAN CELL HGB (test code = MCH) 32.9 pg 27.0-33.0 N MEAN CELL HGB CONCETRATION 32.9 g/dL 33.0-37.0 L (test code = MCHC) RED CELL DISTRIBUTION WIDTH CV 14.7 % 11.5-14.5 H (test code = RDW) RED CELL DISTRIBUTION WIDTH SD 54.3 fL 37.0-54.0 H (test code = RDW-SD) PLATELET COUNT (test code = 119 x10 3/uL 150-400 L PLT) MEAN PLATELET VOLUME (test code 12.6 fL 7.0-9.0 H = MPV) NEUTROPHIL % (test code = NT%) 68.2 % 56.0-77.0 N IMMATURE GRANULOCYTE % (test 0.4 % 0.0-2.0 N code = IG%) LYMPHOCYTE % (test code = LY%) 19.3 % 14.0-32.0 N MONOCYTE % (test code = MO%) 11.7 % 4.8-9.0 H EOSINOPHIL % (test code = EO%) 0.0 % 0.3-3.7 L BASOPHIL % (test code = BA%) 0.4 % 0.0-2.0 N NUCLEATED RBC % (test code = 0.0 % 0-0 N NRBC%) NEUTROPHIL # (test code = NT#) 3.31 x10 3/uL 2.0-7.6 N IMMATURE GRANULOCYTE # (test 0.02 x10 3/uL 0.00-0.03 N code = IG#) LYMPHOCYTE # (test code = LY#) 0.94 x10 3/uL 1.0-3.8 L MONOCYTE # (test code = MO#) 0.57 x10 3/uL 0.1-0.8 N EOSINOPHIL # (test code = EO#) 0.00 x10 3/uL 0.0-0.2 N BASOPHIL # (test code = BA#) 0.02 x10 3/uL 0.0-0.2 N NUCLEATED RBC # (test code = 0.00 x10 3/uL 0.0-0.1 N NRBC#) MANUAL DIFF REQUIRED (test code NO = MDIFF) - XR CHEST 1 [id number] 00:00:[address] [facility] [place] : 1950 Sex: F FAX:Alfonso Mendoza [phone] [place]: St: REG FAX: Ssuan Millard APR [phone] FAX: Serafin Olguin MD [phone] Name: SIMONA SHEPHERD [facility] : 1950 Age/S: 70/F [address] [place] [address] Bl Unit #: [id number] Loc: [place] [address] Phys: Susan Millard APRNNP Acct: [id number] Dis Date: Status: REG ER PHONE #: [phone] Exam Date: 05/05/20212003 FAX #: [phone] Reason: SEPSIS EXAMS: CPT CODE: [id number] XR CHEST 1 V 69943 PROCEDURE INFORMATION: Exam: XR Chest Exam date and time: 05/05/2021 7:45 PM Age: 70 years old Clinical indication: Other: Sepsis TECHNIQUE: Imaging protocol: XR of the chest. Views: 1 view. COMPARISON: DX XR CHEST 2 V 05/03/2021 11:13 AM FINDINGS: Lines:Left IJV chemotherapy port with its tip projecting over the proximal superior vena cava, unchanged. Lungs: Normal lung volumes. No consolidation. Pleural spaces: Unremarkable. No pleural effusion. No pneumothorax. Heart/Mediastinum: Heart size is within normal limits. Vasculature is unremarkable. Bones/joints: Age-indeterminate fracture deformity of the left-sided lower ribs. Right axillary clips. IMPRESSION: No acute cardiopulmonary findings. at 2022 Reported and signed by: Cheryl Escobar M.D. CC: Alfonso Mccain MD;Susan Millard; Serafin Brown MD Technologist: RT Sherry(Mita) Trnscrd Date/Time/By: 05/05/2021 (2022) : By: [email or web address] Orig Print D/T: S: 05/05/2021 (2022) PAGE 1 Signed ReportACT-ISTAT 2021-05-04 16:20:00 Test Item Value Reference Range Interpretation Comments ACT-ISTAT (test code 120 SEC 74-137 N Perform ed by certified = ACTI) paper coating machine operator at [facility] [id number] 15:55:00 Test Item Value Reference Range Interpretation Comments ACT-ISTAT (test code 263 SEC 74-137 H Perform ed by certified = ACTI) paper coating machine operator at [facility] [id number] 15:47:00 Test Item Value Reference Range Interpretation Comments ACT-ISTAT (test code 241 SEC 74-137 H Perform ed by certified = ACTI) paper coating machine operator at [facility] [id number] 15:47:00 Test Item Value Reference Range Interpretation Comments ACT-ISTAT (test code 219 SEC 74-137 H Perform ed by certified = ACTI) paper coating machine operator at [facility] COVID 19 Asymptomatic IH [id number] 12:57:00 Test Item Value Reference Range Interpretation Comments COVID 19 Asymptomatic Negative Negative A nega tive result is IH AG (test code = presumpti ve and should COVNONPUIAG) be confirmedwit h an FDA authorized mole cular assay, if neces ryan forpatient eros gement.A positive result does not rule out co-inf ections withother patho gens.This test detects george th viable (live) and non-viable,SARS -CoV, and SARS-CoV-2. Jessica t performance dep ends on theamount of vi raiza (antigen) in th e sample.This jessica t has not been FDA cleare d or approved; the t est hasbeen authori zed by FDA under an Em ergency Use Authorizati on(EUA) for use by labo ratories certified under the CLIA thatmeet the requirements to perform moderate, high or waivedcomplexit y tests. B-TYPE NATRIURETIC [id number] 11:01:00 Test Item Value Reference Range Interpretation Comments B-TYPE NATRIURETIC PEPTIDE (test 27.0 PG/ML 0-100 N code = BNP) BASIC METABOLIC [id number] 11:00:00 Test Item Value Reference Range Interpretation Comments SODIUM (test code = NA) 138 mEq/L 134-147 N POTASSIUM (test code = 3.5 mEq/L 3.4-5.0 N K) CHLORIDE (test code = 104 mEq/L 100-108 N CL) CARBON DIOXIDE (test 27 mEq/l 21-33 N code = CO2) ANION GAP (test code = 11 0-20 N GAP) GLUCOSE (test code = 105 mg/dL 70-110 N GLU) BLOOD UREA NITROGEN 10 mg/dL 7-18 N (test code = BUN) GLOMERULAR FILTRATION 54.5 70-80 L Units of measure = RATE (test code = GFR) ml/mi n/1.73 m2 CREATININE (test code = 1.0 mg/dL 0.6-1.3 N CREAT) CALCIUM (test code = 9.2 mg/dL 8.0-10.5 N CA) [id number] 11:00:00 Test Item Value Reference Range Interpretation Comments ALBUMIN (test code = ALB) 3.80 g/dL 3.4-5.0 N CBC W/AUTO [id number] 10:56:00 Test Item Value Reference Range Interpretation Comments WHITE BLOOD CELL (test code = 4.1 x10 3/uL 4.5-11.0 L WBC) RED BLOOD CELL (test code = 2.64 x10 6/uL 3.54-5.02 L RBC) HEMOGLOBIN (test code = HGB) 8.6 g/dL 11.0-15.0 L HEMATOCRIT (test code = HCT) 26.8 % 33.0-45.0 L MEAN CELL VOLUME (test code = 101.5 fL 81.0-99.0 H MCV) MEAN CELL HGB (test code = MCH) 32.6 pg 27.0-33.0 N MEAN CELL HGB CONCETRATION 32.1 g/dL 33.0-37.0 L (test code = MCHC) RED CELL DISTRIBUTION WIDTH CV 15.0 % 11.5-14.5 H (test code = RDW) PLATELET COUNT (test code = 157 x10 3/uL 150-400 N PLT) NEUTROPHIL % (test code = NT%) 57.2 % 56.0-77.0 N LYMPHOCYTE % (test code = LY%) 28.6 % 14.0-32.0 N NEUTROPHIL # (test code = NT#) 2.32 x10 3/uL 2.0-7.6 N LYMPHOCYTE # (test code = LY#) 1.16 x10 3/uL 1.0-3.8 N MANUAL DIFF REQUIRED (test code NO = MDIFF) RED CELL DISTRIBUTION WIDTH SD 56.6 fL 37.0-54.0 H (test code = RDW-SD) MEAN PLATELET VOLUME (test code 12.6 fL 7.0-9.0 H = MPV) IMMATURE GRANULOCYTE % (test 0.2 % 0.0-2.0 N code = IG%) MONOCYTE % (test code = MO%) 9.6 % 4.8-9.0 H EOSINOPHIL % (test code = EO%) 3.7 % 0.3-3.7 N BASOPHIL % (test code = BA%) 0.7 % 0.0-2.0 N NUCLEATED RBC % (test code = 0.0 % 0-0 N NRBC%) IMMATURE GRANULOCYTE # (test 0.01 x10 3/uL 0.00-0.03 N code = IG#) MONOCYTE # (test code = MO#) 0.39 x10 3/uL 0.1-0.8 N EOSINOPHIL # (test code = EO#) 0.15 x10 3/uL 0.0-0.2 N BASOPHIL # (test code = BA#) 0.03 x10 3/uL 0.0-0.2 N NUCLEATED RBC # (test code = 0.00 x10 3/uL 0.0-0.1 N NRBC#) PROTHROMBIN [id number] 10:51:00 Test Item Value Reference Range Interpretation Comments PROTHROMBIN TIME 12.3 SECONDS 9.3-12.9 N PATIENT (test code = PTP) INTERNATIONAL NORMAL 1.1 0.8-1.2 N TARGET INR BY RATIO (test code = INDICATIO N Indication INR) INR1. Prophylax is of venous thrombos is 2.0 - 3.0 (orthoped ic surgery), Proph ylaxis of venous throm bosis (other than hig h-risk surgery), Treat ment of Deep Vein Thrombosis/Pulm onary Embolism, Preve ntion of systemic emb olism - Tissue heart va lves, Acute Myocardia l Infarction (to prevent systemic emboli sm), Valvular heart disease, Atrial Fibrillation, Bileaflet mecha nical valve in aortic position.2. Mec hanical prosthetic valv es (high risk), 2. 5 - 3.5 Presence of Lup us Anticoagulant o r Antiphospholipi d Antibodies, Pre vention of systemic emb olism - Acute Myocardia l Infarction (to prevent recurrent infar ct). - XR CHEST 2 [id number] 00:00:00 [facility] : 1950 Sex: F FAX:Vinny Ricardo MD [phone] [place]: St: PRE FAX: Serafin Olguin MD [phone] Name: SIMONA SHEPHERD [facility] : 1950 Age/S: 70/F [address] [place] [address] Unit #: [id number] Loc: [place] [address] Phys: Vinny Cuba MD Acct: [id number] Dis Date: Status: PRE [facility] PHONE #: [phone] Exam Date: 05/03/2021 1206 FAX #: [phone] Reason: PREOP EXAMS: CPT CODE: [id number] XR CHEST 2 V 49007 PROCEDURE INFORMATION: Exam: XR Chest Exam date and time: 05/03/2021 11:13 AM Age: 70 years old Clinical indication: Other: Preop TECHNIQUE: Imaging protocol: XR of the chest. Views: 2 views. PA and Lateral COMPARISON: CT HEART W CN ART/GRAFTS 04/27/2021 9:20 AM FINDINGS: Lungs: No consolidation. Left chest port with tip overlying the mid SVC. Pleural spaces: No pleural effusion. Heart/Mediastinum: The heart and vascular markings are within limits of normal. There is atherosclerotic calcification of the aorta. Bones/joints: No gross acute findings. Right axillary clips. IMPRESSION: No acute cardiopulmonary findings at 1235 Reported and signed by: Roxane Pringle D.O. CC: Vinny Cuba MD; Serafin Brown MD Technologist: Rah Ricci RT(R) Trnscrd Date/Time/By: 05/03/2021 (5155) : By: [email or web address] Orig Print D/T: S: 05/03/2021 (2480) PAGE 1 Signed ReportCOVID 19 Asymptomatic IH [id number] 10:39:00 Test Item Value Reference Range Interpretation Comments COVID 19 Asymptomatic Negative Negative A nega tive result is IH AG (test code = presumpti ve and should COVNONPUIAG) be confirmedwit h an FDA authorized mole cular assay, if neces ryan forpatient eros gement.A positive result does not rule out co-inf ections withother patho gens.This test detects george th viable (live) and non-viable,SARS -CoV, and SARS-CoV-2. Jessica t performance dep ends on theamount of vi raiza (antigen) in th e sample.This jessica t has not been FDA cleare d or approved; the t est hasbeen authori zed by FDA under an Em ergency Use Authorizati on(EUA) for use by labo ratories certified under the CLIA thatmeet the requirements to perform moderate, high or waivedcomplexit y tests. CREATININE W ESTIMATED [id number] 09:24:00 Test Item Value Reference Range Interpretation Comments BEDSIDE CREATININE (test code = 1.2 MG/DL 0.6-1.3 N CREATBED) GLOMERULAR FILTRATION RATE POC 47 ML/MIN (test code = GFRBED) - CT ANGIO [id number] 00:00:00 [facility] : 1950 Sex: F Name: SIMONA SHEPHERD [facility] : 1950 Age/S: 70 / F [address] [place] [address] Unit #: [id number] Loc: [place] [address] Phys: Vinny Cuba MD Acct: [id number] Dis Date: Status: REG CLI PHONE #: [phone] Exam Date: 04/27/2021932 FAX #: [phone] Reason: AORTIC STENOSIS EXAMS: CPT CODE: [id number] CT ANGIO CHEST 94742 PROCEDURE INFORMATION: Exam: CTA Chest With Contrast Exam date andtime: 04/27/2021 9:20 AM Age: 70 years old Clinical indication: Condition or disease; Other: Aortic stenosis TECHNIQUE: Imaging protocol: Computed tomographic angiography of the chest with contrast. 3D rendering (Not supervised by radiologist): MIP and/or 3D reconstructed images were created by the technologist. Radiation optimization: All CT scans at this facility use at least one of these dose optimization techniques: automated exposure control; mA and/or kV adjustment per patient size (includes targeted exams where dose is matched to clinical indication); or iterative reconstruction. Contrast material: ISO 370; Contrast volume: 100 ml; Contrast route: INTRAVENOUS (IV); COMPARISON: No relevant prior studies available. FINDINGS: Tubes, catheters and devices: Left chest MediPort catheter tip term inates near the superior cavoatrial junction. Pulmonary arteries: Normal. No pulmonary emboli. Aorta: Unremarkable. No aortic aneurysm. No aortic dissection. Lungs: No consolidation. No masses. Pleuralspaces: Unremarkable. No pneumothorax. No pleural effusion. Heart: Unremarkable. He No pericardial ef fusion. Lymph nodes: Unremarkable. No enlarged lymph nodes. Bones/joints: Unremarkable. No acute fracture. Soft tissues: Status post right mastectomy and right axillary lymph node dissection. IMPRESSION: No acute findings. PROCEDURE INFORMATION: Exam: CTA Heart And Coronary A rteries With Contrast Exam date and time: 04/27/2021 9:20 AM Age: 70 years old Clinical indication: Condition or disease; Other: Aortic stenosis TECHNIQUE: Imaging protocol: CT angiography of the heart, coronary arteries, and bypass grafts (when present) with contrast including 3D image postprocessing. Standard prospective cardiac-gated CAC scoring protocol was used for image acquisition. Following intravenous contrast administration, ECG gated CTA was performed. PAGE 1 Signed Report (CONTINUED) Name: [facility] 1950 Age/S: 70 / F [address] [place] [address] Blvd Unit #: [id number] Loc: [place] [address] Phys: Vinny Cuba MD Acct: [id number] Dis Date: Status: REG CLI PHONE #: [phone] Exam Date: 04/27/2021 09 FAX #: [phone] Reason: AORTIC STENOSIS EXAMS: CPT CODE: [id number] CT ANGIO CHEST 91635 (Continued) 3D rendering (Not supervised by radiologist): MIP and/or 3D reconstructed images were created by the technologist. Radiation optimization: All CT scans at this facility use at least one of these dose optimization techniques: automated exposure control; mA and/or kV adjustment per patient size (includes targeted exams where dose is matched to clinical indication); or iterative reconstruction. Contrast material: ISO 370; Contrast volume: 100 ml; Contrast route: INTRAVENOUS (IV); Pharmacological intervention: None. COMPARISON: No relevant prior studies available. FINDINGS: CARDIAC: Left main coronary artery (LMCA): The left main coronary artery is a large/medium/small caliber vessel that bifurcates to form a left anterior descending artery and a left circumflex artery.trifurcates into a left anterior descending artery, left circumflex artery, and ramus intermedius. The left main coronary artery is patent with no evidence plaque or stenosis. Left anterior descending artery (LAD): The left anterior descending artery is patent with no evidence of plaque or stenosis. The left anterior descending artery gives off 2 patent diagonal branches. Left circumflex artery (LCx): The left circumflex artery is patent with no evidence of plaque or stenosis. The left circumflex artery gives off 2 patent obtuse marginal branches. Right coronary artery (RCA): The right coronary artery is patent with no evidence of plaque or stenosis. The right coronary artery termin ates as a posterior descending artery and right posterolateral branch with no evidence of plaque or stenosis. Coronary artery dominance: Right/Left/Co- dominant Pericardium: No pericardial effusion or thickening. Lungs: Visualized lungs are unremarkable. Mediastinal space: Limited views of the mediastinal space is unremarkable. Other findings: Aortic root measurements were not post processed on this exam. Aortic valve is trileaflet. There is moderate burden of aortic valve calcification. There are normal origins of the coronary arteries. Please note this examination was not optimized for evaluation of coronary stenosis. No significant annular/sub annular calcification. Mild left atrial enlargement.IMPRESSION: Cardiac CT for transcatheter aortic valve replacement planning. Aortic root measurements were not post-processed on this exam. PAGE 2 Signed Report (CONTINUED) Name: SIMONA SHEPHERD [facility] : 1950 Age/S: 70 / F [address] [place] [address] Blvd Unit #: [id number] Loc: [place] [address] Phys: Vinny Cuba MD Acct: [id number] Dis Date: Status: REG CLI PHONE #: [phone] Exam Date: 04/27/2021 09 FAX #: [phone] Reason: AORTIC STENOSIS EXAMS: CPT CODE: [id number] CT ANGIO CHEST 98227 (Continued) PROCEDURE INFORMATION: Exam: CTA Abdomen and Pelvis W ith Contrast Exam date and time: 04/27/2021 9:20 AM Age: 70 years old Clinical indication: Conditionor disease; Other: Aortic stenosis TECHNIQUE: Imaging protocol: Computed tomographic angiography of the abdomen and pelvis with contrast material. 3D rendering (Not supervised by radiologist): MIP and/or 3D reconstructed images were created by the technologist. Radiation optimization: [facility] use at least one of these dose optimization techniques: automated exposure control; mAand/or kV adjustment per patient size (includes targeted exams where dose is matched to clinical indication); or iterative reconstruction. Contrast material: ISO 370; Contrast volume: 100 ml; Contrast route: INTRAVENOUS (IV); COMPARISON: No relevant prior studies available. FINDINGS: Aorta: No aortic aneurysm. No aortic dissection. Moderate burden of calcified plaque throughout the infrarenal abdominal aorta. 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 The superior mesenteric artery is widely patent. Small caliber inferior mesenteric artery. Renal arteries: No occlusion or significant stenosis. Right iliac arteries: No occlusion or significant stenosis. Left iliac arteries: No occlusion or significant stenosis. Liver: There is intrahepaticbiliary ductal dilatation throughout the left lobe. Scattered subcentimeter hypodense lesions are present throughout the liver, too small to characterize. Gallbladder and bile ducts: Unremarkable. No calcified stones. No ductal dilation. Pancreas: Unremarkable. No mass. No ductal dilation. Spleen: Unremarkable. No splenomegaly. Adrenal glands: Unremarkable. No mass. Kidneys and ureters: Unremarkable.No solid mass. No hydronephrosis. Stomach and bowel: No obstruction. There is diffuse colonic diverticulosis. Appendix: No evidence of appendicitis. Intraperitoneal space: Unremarkable. No free air. Nosignificant fluid collection. PAGE 3 Signed Report (CONTINUED) Name: SIMONA SHEPHERD [facility] : 1950 Age/S: 70 / F [address] [place] [address] Blvd Unit #: [id number] Loc: [place] [address] Phys:Vinny Cuba MD Acct: [id number] Dis Date: Status: REG CLI PHONE #: [phone] Exam Date: 04/27/2021932 FAX #: [phone] Reason: AORTIC STENOSIS EXAMS: CPT CODE: [id number] CT ANGIO CHEST 13692 (Continued) Lymph nodes: Unremarkable. No enlarged lymph nodes. Urinary bladder: Unremarkable. No mass. Reproductive: Unremarkable as visualized. Bones/joints: Advanced degenerative changes of the thoracolumbar spine. Soft tissues: Unremarkable. IMPRESSION: 1. Moderate burden of calcified plaque th roughout the infrarenal abdominal aorta. No evidence of significant stenosis of the aorta or bilateral iliofemoral arteries. 2. Intrahepatic biliary ductal dilatation throughout the left hepatic lobe. Recommend correlation with contrast-enhanced liver MRI. at 2009 Reported and signed by: Mata Kaur M.D. CC: Vinny Cuba MD; Serafin Brown MD Technologist:Heriberto Weems RT(R)(CT) CTDI: DLP: Trnscb Date/Time: 04/27/2021 (2009) [email or web address] Orig Print D/T: S: 04/27/2021 (2009) PAGE 4 Signed Report- CTA ABD PEL W CONT 2021-04-27 00:00:00 [facility] JALEEL LAIRDName: SIMONA SHEPHERD : 1950 Sex: F Name: SIMONA SHEPHERD [facility] Jaleel Laird : 1950 Age/S: 70 / F [address] Unit #: [id number] Loc: [place] [address] Phys: Vinny Cuba MD Acct: [id number] Dis Date: Status: REG CLI PHONE #: [phone] Exam Date: 04/27/2021932 FAX #: [phone] Reason: AORTIC STENOSIS EXAMS: CPT CODE: [id number] CTA ABD PEL W CONT 40768 PROCEDURE INFORMATION: Exam: CTA Chest With Contrast Exam date and time: 04/27/2021 9:20 AM Age: 70 years old Clinical indication: Condition or disease; Other: Aortic stenosis TECHNIQUE: Imaging protocol: Computed tomographic angiography of the chest with contrast. 3D rendering (Not supervised by radiologist): MIP and/or 3D reconstructed images were created bythe technologist. Radiation optimization: All CT scans at this facility use at least one of these dose optimization techniques: automated exposure control; mA and/or kV adjustment per patient size (includes targeted exams where dose is matched to clinical indication); or iterative reconstruction. Contrast material: ISO 370; Contrast volume: 100 ml; Contrast route: INTRAVENOUS (IV); COMPARISON: No relevant prior studies available. FINDINGS: Tubes, catheters and devices: Left chest MediPort catheter tip terminates near the superior cavoatrial junction. Pulmonary arteries: Normal. No pulmonary emboli. Aorta: Unremarkable. No aortic aneurysm. No aortic dissection. Lungs: No consolidation. No masses. Pleural spaces: Unremarkable. No pneumothorax. No pleural effusion. Heart: Unremarkable. He No pericardial effusion. Lymph nodes: Unremarkable. No enlarged lymph nodes. Bones/joints: Unremarkable. No acute fracture. Soft tissues: Status post right mastectomy and right axillary lymph node dissection. IMPRESSION: No acute findings. PROCEDURE INFORMATION: Exam: CTA Heart And Coronary Arteries With Contrast Exam date and time: 04/27/2021 9:20 AM Age: 70 years old Clinical indication: Condition or disease; Other: Aortic stenosis TECHNIQUE: Imaging protocol: CT angiography of the heart, coronary arteries, and bypass grafts (when present) with contrast including 3D image postprocessing. Standard prospective cardiac-gated CAC scoring protocol was used for image acquisition. Following intravenous contrast administration, ECG gated CTA was performed. PAGE 1 Signed Report (CONTINUED) Name: SIMONA SHEPHERD [facility] [place] : 1950 Age/S: 70 / F [address] [place], [place] [address]vd Unit #: [id number] Loc: [place] [address] Phys: Vinny Cuba MD Acct: [id number] Dis Date: Status: REG CLI PHONE #: [phone] Exam Date: 04/27/2021 0933 FAX #: [phone] Reason: AORTIC STENOSIS EXAMS: CPT CODE: [id number] CTA ABD PEL W CONT 97670 (Continued) 3D rendering (Not supervised by radiologist): MIP and/or 3D reconstructed images were created by the technologist. Radiation optimization: AllCT scans at this facility use at least one of these dose optimization techniques: automated exposurecontrol; mA and/or kV adjustment per patient size (includes targeted exams where dose is matched to clinical indication); or iterative reconstruction. Contrast material: ISO 370; Contrast volume: 100 ml; Contrast route: INTRAVENOUS (IV); Pharmacological intervention: None. COMPARISON: No relevant prior studies available. FINDINGS: CARDIAC: Left main coronary artery (LMCA): The left main coronary artery is a large/medium/small caliber vessel that bifurcates to form a left anterior descending artery and a left circumflex artery.trifurcates into a left anterior descending artery, left circumflex artery, and ramus intermedius. The left main coronary artery is patent with no evidence plaque or stenosis. Left anterior descending artery (LAD): The left anterior descending artery is patent with no evidence of plaque or stenosis. The left anterior descending artery gives off 2 patent diagonal branches. Left circumflex artery (LCx): The left circumflex artery is patent with no evidence of plaque or stenosis. The left circumflex artery gives off 2 patent obtuse marginal branches. Right coronary artery (RCA): The right coronary artery is patent with no evidence of plaque or stenosis. The right coronary a rtery terminates as a posterior descending artery and right posterolateral branch with no evidence of plaque or stenosis. Coronary artery dominance: Right/Left/Co-dominant Pericardium: No pericardial effusion or thickening. Lungs: Visualized lungs are unremarkable. Mediastinal space: Limited views of t he mediastinal space is unremarkable. Other findings: Aortic root measurements were not post processed on this exam. Aortic valve is trileaflet. There is moderate burden of aortic valve calcification. There are normal origins of the coronary arteries. Please note this examination was not optimized forevaluation of coronary stenosis. No significant annular/sub annular calcification. Mild left atrial enlargement. IMPRESSION: Cardiac CT for transcatheter aortic valve replacement planning. Aortic root measurements were not post-processed on this exam. PAGE 2 Signed Report (CONTINUED) Name: SIMONA SHEPHERD [facility] : 1950 Age/S: 70 / F [address] [place] [address] Blvd Unit #: [id number] Loc: [place] [address] Phys: Vinny Cuba MD Acct: [id number] Dis Date: Status: REG CLI PHONE #: [phone] Exam Date: 04/27/2021 0933 FAX #: [phone] Reason: AORTIC STENOSIS EXAMS: CPT CODE: [id number] ABD PEL W CONT 55708 (Continued) PROCEDURE INFORMATION: Exam: CTA Abdomen and Pelvis With Contrast Exam date and time: 04/27/2021 9:20 AM Age: 70 years old Clinical indication: Condition or disease; Other: Aortic stenosis TECHNIQUE: Imaging protocol: Computed tomographicangiography of the abdomen and pelvis with contrast material. 3D rendering (Not supervised by radiologist): MIP and/or 3D reconstructed images were created by the technologist. Radiation optimization: A ll CT scans at this facility use at least one of these dose optimization techniques: automated exposure control; mA and/or kV adjustment per patient size (includes targeted exams where dose is matched to clinical indication); or iterative reconstruction. Contrast material: ISO 370; Contrast volume: 100 ml; Contrast route: INTRAVENOUS (IV); COMPARISON: No relevant prior studies available. FINDINGS: Aorta: No aortic aneurysm. No aortic dissection. Moderate burden of calcified plaque throughout the infrarenal abdominal aorta. 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 The superior mesenteric artery is widely patent. Small caliber inferior mesenteric artery. Renal arteries: No occlusion or significant stenosis. Right iliac arteries: No occlusion or significant stenosis. Left iliac arteries: No occlusion or significant stenosis. Liver: There is intrahepatic biliary ductal dilatation throughout the left lobe. Scattered subcentimeter hypodenselesions are present throughout the liver, too small to characterize. Gallbladder and bile ducts: Unremarkable. No calcified stones. No ductal dilation. Pancreas: Unremarkable. No mass. No ductal dilation. Spleen: Unremarkable. No splenomegaly. Adrenal glands: Unremarkable. No mass. Kidneys and ureters: Unremarkable. No solid mass. No hydronephrosis. Stomach and bowel: No obstruction. There is diffusecolonic diverticulosis. Appendix: No evidence of appendicitis. Intraperitoneal space: Unremarkable. No free air. No significant fluid collection. PAGE 3 Signed Report (CONTINUED) Name: SIMONA SHEPHERD [facility] : 1950 Age/S: 70 / F [address] [place] [address] Unit #: [id number] Loc: [place] [address] Phys: Vinny Cuba MD Acct: [id number] Dis Date: Status: REG CLI PHONE #: [phone] Exam Date: 04/27/2021 0933 FAX #: [phone] Reason: AORTIC STENOSIS EXAMS: CPT CODE: [id number] CTA ABD PEL W CONT 79399 (Continued) Lymph nodes: Unremarkable. No enlarged lymph nodes. Urinary bladder: Unremarkable. No mass. Reproductive: Unremarkable as visualized. Bones/joints: Advanced degenerative changes of the thoracolumbar spine. Soft tissues: Unremarkable. IMPRESSION: 1. Moderate burden ofcalcified plaque throughout the infrarenal abdominal aorta. No evidence of significant stenosis of the aorta or bilateral iliofemoral arteries. 2. Intrahepatic biliary ductal dilatation throughout the left hepatic lobe. Recommend correlation with contrast-enhanced liver MRI. at 2009 Reported and signed by: Mata Kaur M.D. CC: Vinny Cuba MD; Serafin Brown MD Technologist:Heriberto Weems RT(R)(CT) CTDI: DLP: Trnscb Date/Time: 04/27/2021 (2009) t.[id number].CM29 Orig Print D/T: S: 04/27/2021 (2009) PAGE 4 Signed Report- CTA HEART W CN ART/GRAFTS 2021-04-27 00:00:[address] [facility] [place] : 1950 Sex: F Name: SIMONA SHEPHERD [facility] : 1950 Age/S: 70 / F [address] [place] [address] Unit #: [id number] Loc: [place] [address] Phys: Vinny Cuba MD Acct: [id number] Dis Date: Status: REG CLI PHONE#: [phone] Exam Date: 04/27/2021 09 FAX #: [phone] Reason: EXAMS: CPT CODE: [id number] CTA HEART W CN ART/GRAFTS 95254 PROCEDURE INFORMATION: Exam: CTA Chest With Contrast Exam date and time: 04/27/2021 9:20 AM Age: 70 years old Clinical indication: Condition or disease; Other: Aortic stenosis TECHNIQUE: Imaging protocol: Computed tomographic angiography of the chest with contrast. 3D del dering (Not supervised by radiologist): MIP and/or 3D reconstructed images were created by the technologist. Radiation optimization: All CT scans at this facility use at least one of these dose optimization techniques: automated exposure control; mA and/or kV adjustment per patient size (includes targeted exams where dose is matched to clinical indication); or iterative reconstruction. Contrast material: ISO 370; Contrast volume: 100 ml; Contrast route: INTRAVENOUS (IV); COMPARISON: No relevant prior studies available. FINDINGS: Tubes, catheters and devices: Left chest MediPort catheter tip termina jessica near the superior cavoatrial junction. Pulmonary arteries: Normal. No pulmonary emboli. Aorta: Unremarkable. No aortic aneurysm. No aortic dissection. Lungs: No consolidation. No masses. Pleural spaces: Unremarkable. No pneumothorax. No pleural effusion. Heart: Unremarkable. He No pericardial effus ion. Lymph nodes: Unremarkable. No enlarged lymph nodes. Bones/joints: Unremarkable. No acute fracture. Soft tissues: Status post right mastectomy and right axillary lymph node dissection. IMPRESSION:No acute findings. PROCEDURE INFORMATION: Exam: CTA Heart And Coronary Arteries With Contrast Exam date and time: 04/27/2021 9:20 AM Age: 70 years old Clinical indication: Condition or disease; Other: Aortic stenosis TECHNIQUE: Imaging protocol: CT angiography of the heart, coronary arteries, and bypass grafts (when present) with contrast including 3D image postprocessing. Standard prospective cardiac-gated CAC scoring protocol was used for image acquisition. Following intravenous contrast administration, ECG gated CTA was performed. PAGE 1 Signed Report (CONTINUED) Name: SIMONA SHEPHERD [facility] : 1950 Age/S: 70 / F [address] [place] [address] Unit #: [id number] Loc: [place] [address] Phys: Vinny Cuba MD Acct: [id number] Dis Date: Status: REG CLI PHONE #: [phone] Exam Date: 04/27/2021 0954 FAX #: [phone] Reason: EXAMS: CPT CODE: [id number] CTAHEART W CN ART/GRAFTS 96173 (Continued) 3D rendering (Not supervised by radiologist): MIP and/or 3D reconstructed images were created by the technologist. Radiation optimization: All CT scans at this facility use at least one of these dose optimization techniques: automated exposure control; mA and/orkV adjustment per patient size (includes targeted exams where dose is matched to clinical indication); or iterative reconstruction. Contrast material: ISO 370; Contrast volume: 100 ml; Contrast route: INTRAVENOUS (IV); Pharmacological intervention: None. COMPARISON: No relevant prior studies available. FINDINGS: CARDIAC: Left main coronary artery (LMCA): The left main coronary artery is a large/medium/small caliber vessel that bifurcates to form a left anterior descending artery and a left circumflex artery.trifurcates into a left anterior descending artery, left circumflex artery, and ramus intermedius. The left main coronary artery is patent with no evidence plaque or stenosis. Left anterior descending artery (LAD): The left anterior descending artery is patent with no evidence of plaque or stenosis. The left anterior descending artery gives off 2 patent diagonal branches. Left circumflex artery (LCx): The left circumflex artery is patent with no evidence of plaque or stenosis. The left circumflex artery gives off 2 patent obtuse marginal branches. Right coronary artery (RCA): The right coronary artery is patent with no evidence of plaque or stenosis. The right coronary artery terminates asa posterior descending artery and right posterolateral branch with no evidence of plaque or stenosis. Coronary artery dominance: Right/Left/Co-dominant Pericardium: No pericardial effusion or thickening. Lungs: Visualized lungs are unremarkable. Mediastinal space: Limited views of the mediastinal space is unremarkable. Other findings: Aortic root measurements were not post processed on this exam. Aortic valve is trileaflet. There is moderate burden of aortic valve calcification. There are normal origins of the coronary arteries. Please note this examination was not optimized for evaluation of coronary stenosis. No significant annular/sub annular calcification. Mild left atrial enlargement. IMPRESSION: Cardiac CT for transcatheter aortic valve replacement planning. Aortic root measurements were not post-processed on this exam. PAGE 2 Signed Report (CONTINUED) Name: SIMONA SHEPHERD [facility] [place] 1950 Age/S: 70 / F [address] [place] [address] Blvd Unit #: [id number] Loc: [place] [address] Phys: Vinny Cuba MD Acct: [id number] Dis Date: Status: REG CLI PHONE #: [phone] Exam Date: 04/27/2021 0904 FAX #: [phone] Reason: EXAMS: CPT CODE: [id number] CTA HEART W CN ART/GRAFTS 34356 (Continued) PROCEDURE INFORMATION: Exam: CTA Abdomen and Pelvis With Contrast Exam date and time: 04/27/2021 9:20 AM Age: 70 years old Clinical indication: Condition or disease; Other: Aortic stenosis TECHNIQUE: Imaging protocol: Computed tomographic angiography of the abdomenand pelvis with contrast material. 3D rendering (Not supervised by radiologist): MIP and/or 3D reconstructed images were created by the technologist. Radiation optimization: All CT scans at this facility use at least one of these dose optimization techniques: automated exposure control; mA and/or kV adjustment per patient size (includes targeted exams where dose is matched to clinical indication); or iterative reconstruction. Contrast material: ISO 370; Contrast volume: 100 ml; Contrast route: INTRAVENOUS (IV); COMPARISON: No relevant prior studies available. FINDINGS: Aorta: No aortic aneurysm. Noaortic dissection. Moderate burden of calcified plaque throughout the infrarenal abdominal aorta. 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 The superior mesenteric artery is widely patent. Small caliber inferior mesenteric artery. Renal arteries: No occlusion or significant stenosis. Right iliac arteries: No occlusion or significant stenosis.Left iliac arteries: No occlusion or significant stenosis. Liver: There is intrahepatic biliary ductal dilatation throughout the left lobe. Scattered subcentimeter hypodense lesions are present throughout the liver, too small to characterize. Gallbladder and bile ducts: Unremarkable. No calcified stones. No ductal dilation. Pancreas: Unremarkable. No mass. No ductal dilation. Spleen: Unremarkable. Nosplenomegaly. Adrenal glands: Unremarkable. No mass. Kidneys and ureters: Unremarkable. No solid mass. No hydronephrosis. Stomach and bowel: No obstruction. There is diffuse colonic diverticulosis. Appendix: No evidence of appendicitis. Intraperitoneal space: Unremarkable. No free air. No significant f luid collection. PAGE 3 Signed Report (CONTINUED) Name: SIMONA SHEPHERD [facility] [place] : 1950 Age/S: 70 / F [address] [place] [address] Unit #: [id number] Loc: [place] [address] Phys: Vinny Cuba MD Acct: [id number] Dis Date: Status: REG CLI PHONE #: [phone] Exam Date: 04/27/2021 0933 FAX #: [phone] Reason: EXAMS: CPT CODE: [id number] CTA HEART W CN ART/GRAFTS 49507 (Continued) Lymph nodes: Unremarkable. No enlarged lymph nodes. Urinary bladder: Unremarkable. No mass. Reproductive: Unremarkable as visualized. Bones/joints: Advanced degenerative changes of the thoracolumbar spine. Soft tissues: Unremarkable. IMPRESSION: 1. Moderate burden of calcified plaque throughout the infrarenal abdominal aorta. No evidence of significant stenosis of the aorta or bilateral iliofemoral arteries. 2. Intrahepatic biliary ductal dilatation throughout the left hepatic lobe. Recommend correlation with contrast-enhanced liver MRI. Electronically Signed by Farnaz Kaur on 1 at 2009 Reported and signed by: Mata Kaur M.D. CC: Vinny Cuba MD; Joseph CHRISTIANSEN Technologist:Heriberto Weems RT(R)(CT) CTDI: DLP: Trnscb Date/Time: 04/27/2021 (2009) [id number].[email or web address] Orig Print D/T: S: 04/27/2021 (2009) PAGE 4 Signed OzrjbvJZQM-XnN-4 (COVID-19) RNA [Presence] in Respiratory specimen by GARRET with probe [id number] 23:18:15 Test Item Value Reference Range Interpretation Comments SARS-CoV-2 (COVID-19) RNA Not detected Not-Detected [Presence] in Respiratory specimen by GARRET with probe detection (test code = 56329-5) Whether patient is employed in a healthcare setting (test code = 10187-3) Whether the patient has symptoms related to condition of interest (test code = 49276-9) Patient was hospitalized because of this condition (test code = 20262-9) Whether the patient was admitted to intensive care unit (ICU) for condition of interest (test code = 03503-3) Whether patient resides in a congregate care setting (test code = 91540-0) [facility] Wo [id number] 12:09:22 EXAMINATION: MRI PELVIS W WO CONTRAST CLINICAL HISTORY: 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 COMPARISON: None. FINDINGS: No mass, adenopathy, free fluid, or fluid collection. Uterus, adnexa, and urinary bladder are unremarkable. No evidence of obstruction or inflammation in the GI tract. Sigmoid colonic diverticulosis. Bone marrow signal is normal. No worrisome lesion. Lumbar degenerative disc disease. Atherosclerotic disease of the abdominal aorta and iliofemoral arteries. IMPRESSION: No evidence of malignancy. [id number] Interface, Radiology Results 03/05/2021 7:12 AM CDT EXAMINATION: MRI PELVIS W WO CONTRASTCLINICAL HISTORY: C22.1 Intrahepatic bile duct carcinoma, stagingTECHNIQUE: Multiplanar multisequence MR images of the pelvis were obtained pre- and post intravenous administration of Gadolinium.COMPARISON: None.FINDINGS: No mass, adenopathy, free fluid, or fluid collection.Uterus, adnexa, and urinary bladder are unremarkable.No evidence of obstruction or inflammation in the GI tract. Sigmoid colonic diverticulosis.Bone marrow signal is normal. No worrisome lesion. 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 MRCP images obtained with 3-D reconstruction was performed on the acquisition scanner under concurrent supervision. COMPARISON: MRI of the abdomen performed October 05, 2020. FINDINGS: A 24 x 20 mm nodular focus of DWI restriction located posteriorly in the lateral left hepatic lobe (segment 2) and broadly abutting the distal left portal vein displays early arterial and sustained enhancement (series 6 image 15, series 18 image 31). There is associated irregular upstream intrahepatic bile duct dilatation in segment 2, and the dilated ducts measure up to 11 mmin diameter. Some ductal wall enhancement is present, and there is also altered regional parenchymalperfusion. These findings are stable when compared to the prior exam. A few subcentimeter hepatic cysts are also seen. Liver is normal in size, contour, and enhancement. There is no evidence of chronicliver disease. No abnormality of the spleen, pancreas, adrenal glands, or kidneys. Gallbladder is normal in appearance. Extrahepatic bile duct is normal in diameter. Incidental pancreatic divisum, an often asymptomatic ductal variant that can be a cause of chronic abdominal pain and idiopathic pancreatitis. No evidence of obstruction or inflammation in the GI tract. Aorta is nonaneurysmal and there is no evidence of acute aortic syndrome. Mild atheromatous disease is present. Superior mesenteric artery and portal venous system are patent. No adenopathy, free fluid, or fluid collection. Heart is normal in size. Lung bases are clear. No pericardial or pleural effusion. Bone marrow signal is normal. No suspicious osseous lesion is identified. 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 Stable lateral left hepatic lobe mass and intrahepatic ductal dilatation concordant with the provided history of cholangiocarcinoma. No satellite lesions or evidence of metastatic disease. 2. 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 3. Please see above for details and additional findings. Thank you for allowing us to participate in the care of your patient. [id number] Interface, Radiology Results Incoming - 03/04/2021 8:39 PM CDT EXAMINATION: MRI ABDOMEN WWO CONTRASTCLINICAL HISTORY: C22.1 Intrahepatic bile duct carcinoma, stagingTECHNIQUE: Multiplanar multisequence MR images of the abdomen were obtained pre- and post dynamic intravenous administration of Gadolinium. MRCP images obtained with 3-D reconstruction was performed on the acquisition scanner under concurrent supervision.COMPARISON: MRI of the abdomen performed October 05, 2020.FINDINGS: A 24 x20 mm nodular focus of DWI restriction located posteriorly in the lateral left hepatic lobe (segment 2) and broadly abutting the distal left portal vein displays early arterial and sustained enhancement (series 6 image 15, series 18 image 31). There is associated irregular upstream intrahepatic bile duct dilatation in segment 2, and the dilated ducts measure up to 11 mm in diameter. Some ductal wall e nhancement is present, and there is also altered regional parenchymal perfusion. These findings are stable when compared to the prior exam.A few subcentimeter hepatic cysts are also seen. Liver is normal in size, contour, and enhancement. There is no evidence of chronic liver disease. No abnormality of the spleen, pancreas, adrenal glands, or kidneys.Gallbladder is normal in appearance. Extrahepatic bile duct is normal in diameter. Incidental pancreatic divisum, an often asymptomatic ductal variant that can be a cause of chronic abdominal pain and idiopathic pancreatitis.No evidence of obstruction or inflammation in the GI tract.Aorta is nonaneurysmal and there is no evidence of acute aortic syndrome. Mild atheromatous disease is present. Superior mesenteric artery and portal venous system are patent.No adenopathy, free fluid, or fluid collection. Heart is normal in size. Lung bases are clear. No pericardial or pleural effusion.Bone marrow signal is normal. No suspicious osseous lesion is identified.23 x 20 x 15 mm circumscribed ovoid, and solid enhancing paraspinal mass located to the left and adjacent to the L2 vertebral body unchanged from prior and most likely a benign nerve sheath tumorIMPRESSION:1. Stable lateral left hepatic lobe mass and intrahepatic ductal dilatation concordant withthe provided history of cholangiocarcinoma. No satellite lesions or evidence of metastatic disease.2. 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 Sagittal and coronal computerized reformatted images were also obtained. CT scans are performed using radiation dose reduction techniques. Technical factors are evaluated and adjusted to ensure appropriate moderation of exposure. Automated dose management technology is applied to adjust radiation exposure while achieving a diagnostic quality image. COMPARISON: January 18, 2021. IMPRESSION: Lines, tubes and hardware: Left port catheter terminates in the distal SVC. Lower neck: The visible portions or the lower neck and thyroid are unremarkable. Axilla: Clear. Airway: Clear. Lungs and pleura: Lungs are clear. No suspicious nodules. No infiltrates or consolidations. No effusions. Previous ly described tiny nodule in the left lower lobe measures 1-2 mm; sequence 603B image 24 and 3-4 image 338. Mediastinum, mike and intrathoracic lymph nodes: Subcentimeter superior mediastinum and paratracheal nodes visualized largest measuring 0.5 cm in diameter. No lymphadenopathy. Heart, pericardium and great vessels: Heart is normal in size. No pericardial effusion. Aortic valve calcifications visualized. Upper abdomen: Upper abdomen shows intrahepatic biliary ductal dilatation in the left lobe. Spleen and visualized portion of the other solid organs are unremarkable. Bones: No acute abnormality.Soft tissues: Normal. SUMMARY:1.No evidence of metastatic disease in the chest.2.Tiny ill- defined nodule in the left lower lobe is unchanged.3.Left hepatic lobe biliary ductal dilatation secondary to the patient's known cholangiocarcinoma. [id number] Interface, Radiology Results Incoming - 03/04/2021 12:38 PM CDT EXAMINATION: CT CHEST W CONTRASTCLINICAL HISTORY: C22.1 Intrahepatic bile duct carcinoma, stagingTECHNIQUE:Multiple axial images of the chest were obtained following intravenous administration of iodinated contrast. [place] coronal computerized reformatted images were also obtained.CT scans are performed using radiation dose reduction techniques. Technical factors are evaluated and adjusted to ensure appropriate moderation of exposure. Automated dose management technology is applied to adjust radiation exposure whileachieving a diagnostic quality image.COMPARISON: January 18, 2021.IMPRESSION:Lines, tubes and hardware: Left port catheter terminates in the distal SVC.Lower neck: The visible portions or the lower neck and thyroid are unremarkable.Axilla: Clear.Airway: Clear.Lungs and pleura: Lungs are clear. No suspicious nodules. No infiltrates or consolidations. No effusions. Previously described tiny nodule in the left lower lobe measures 1-2 mm; sequence 603B image 24 and 3-4 image 338.Mediastinum, mike and intrathoracic lymph nodes: Subcentimeter superior mediastinum and paratracheal nodes visualized largest measuring 0.5 cm in diameter. No lymphadenopathy.Heart, pericardium and great vessels: Heart is normal in size. No pericardial effusion. Aortic valve calcifications visualized.Upper abdomen: Upper abdomenshows intrahepatic biliary ductal dilatation in the left lobe. Spleen and visualized portion of the other solid organs are unremarkable.Bones: No acute abnormality.Soft tissues: Normal.SUMMARY:1.No evidence of metastatic disease in the chest.2.Tiny ill- defined nodule in the left lower lobe is unchanged.3.Left hepatic lobe biliary ductal dilatation secondary to the patient's known cholangiocarcinoma.1O [id number] HospitalUS Vascular External [id number] 16:56:51This exam was not acquired at a [facility] facility and has not been interpreted by a [facility] Provider. The exam was imported into our imaging system.[facility] Chest External [id number] 16:55:37This exam was not acquired at a [facility] facility and has not been interpreted by a [facility] Provider. The exam was imported into our imaging system.[facility] 2020-12-25 18:44:37EXAMINATION: IR PORT PLACEMENT CLINICAL HISTORY: C22.1 Intrahepatic bile duct carcinoma, Chemo treatment COMPARISON: None. PROCEDURE: Venous port placement Procedural PersonnelAttending physician(s): Yasir Huffman MD Pre-procedure diagnosis: Intrahepatic cholangiocarcinomaPost- procedure diagnosis: SameIndication: Administration of chemotherapyAdditional clinical history: Prior Right mastectomy and axillary lymph node dissection. Complications: No immediate complications. IMPRESSION: Insertion of left-sided power-injectable single-lumen tunneled chest port, with catheter tip in the expected location of the cavoatrial junction. Plan: The port may be used immediately. PROCEDURE SUMMARY:- Venous access with ultrasound guidance- Tunneled port insertion under fluoroscopic guidance- Additional procedure(s): None Pre- procedureHistory and imaging of central venous access reviewed (QCDR): Yes Consent: Informed consent for the procedure including risks, benefits and alternatives was obtained and time-out was performed prior to the proced ure.Preparation (MIPS): The site was prepared and draped using all elements of maximal sterile barrier technique including sterile gloves, sterile gown, cap, mask, large sterile sheet, sterile ultrasound probe cover, hand hygiene and cutaneous antisepsis with 2% chlorhexidine. Medical reason for site preparation exception (MIPS): Not applicable Anesthesia/sedationLevel of anesthesia/sedation: Moderate sedation (conscious sedation)Anesthesia/sedation administered by: Independent trained observer under attending supervision with continuous monitoring of the patients level of consciousness and physiologic statusTotal intra-service sedation time (minutes): 32 AccessLocal anesthesia was administered. The vessel was sonographically evaluated and determined to be patent. Real time ultrasound was used tovisualize needle entry into the vessel and a permanent image was not stored.Vein accessed: Internal jugular veinAccess technique: Micropuncture set with 21 gauge needle Port placementAn incision was made at the upper [...] was fluoroscopically verified and a permanent image wasstored.Port placed: AngioComplyMD SmartPortCatheter size (Anguillan): 8Catheter flush: Heparin (100 units/mL) ClosureThe access site and incision were closed and sterile dressing(s) were applied.Access site closure technique: Tissue adhesiveIncision closure technique: Absorbable suture and tissue adhesive Patient discharged from procedure suite with device accessed: No ContrastContrast agent: NoneContrast volume (mL): 0 Radiation DoseReference air kerma (mGy): 6 Additional DetailsAdditional description of procedure: NoneEquipment details: NoneSpecimens removed: NoneEstimated blood loss (mL): Less than 10Standardized report: SIR_Port_v2 [id number] Interface, Radiology Results Incoming - 12/25/2020 1:47 PM CDT EXAMINATION: IR PORT PLACEMENTCLINICAL HISTORY: C22.1 Intrahepatic bile duct carcinoma, Chemo treatmentCOMPARISON: None.PROCEDURE: Venous port placementProcedural PersonnelAttending physician(s): MOUNIKA Hammondre-procedure diagnosis: Intrahepatic cholangiocarcinomaPost-procedure diagnosis: SameIndication: Administration of chemotherapyAdditional clinical history: [...] to the procedure.Preparation (MIPS): The site was p repared and draped using all elements of maximal sterile barrier technique including sterile gloves,sterile gown, cap, mask, large sterile sheet, sterile ultrasound probe cover, hand hygiene and cutaneous antisepsis with 2% chlorhexidine. Medical reason for site preparation exception (MIPS): Not appli cableAnesthesia/sedationLevel of anesthesia/sedation: Moderate sedation (conscious sedation)Anesthesia/sedation administered by: Independent trained observer under attending supervision with continuousmonitoring of the patients level of consciousness and physiologic statusTotal intra-service sedationtime (minutes): 32AccessLocal anesthesia was administered. The vessel [...] the venous access site and trimmed to appropriatelength. The port was inserted into the pocket and the catheter was advanced via a peel-away sheath into the vein under fluoroscopic guidance. The port was not sutured into the pocket. Catheter tip location was fluoroscopically verified and a permanent image was stored.Port placed: Angiodynamics SmartPortCatheter size (Anguillan): 8Catheter flush: Heparin (100 units/mL)ClosureThe access site and incisionwere closed and sterile dressing(s) were applied.Access site closure technique: Tissue adhesiveIncision closure technique: Absorbable suture and tissue adhesivePatient discharged from procedure suite with device accessed: NoContrastContrast agent: NoneContrast volume (mL): 0Radiation DoseReference airkerma (mGy): 6 Additional DetailsAdditional description of procedure: NoneEquipment details: NoneSpecimens removed: NoneEstimated blood loss (mL): Less than 10Standardized report: [id number] HospitalMRI Abd/Pelvic External Study 2020-11-03 15:15:37This exam was not acquired at a [facility] facility and has not been interpreted by a [facility] Provider. The exam was imported into our imaging system.[facility] HospitalCytology (non-gynecological) [id number] 17:20:51 Test Item Value Reference Range Interpretation Comments Case number (test code = [id number]) Cytology See link below for (non-gynecological) PDF Lab Report report (test code = 1178) Result status (test code This is Final Report = [id number]) for [id number] [facility] [id number] 16:28:57 Test Item Value Reference Range Interpretation Comments Case number (test code = [id number]) Surgical pathology See link below for report (test code = PDF Lab Report 2255) Result status (test code This is Final Report = [id number]) [id number] [facility] [id number] 23:36:11PROCEDURE: Image-guided biopsy Procedural PersonnelAttending physician(s): Anuj Castanon Pre-procedure diagnosis: Ill-defined left hepatic massPost-procedure diagnosis: SameIndication: Histopathologic diagnosisPrevious biopsy of same target (QCDR): NoAdditional clinical history: None Complications: No immediate complications. IMPRESSION: Technically challenging but ultimately successful ultrasound guided biopsy of of an ill-defined left hepatic mass. Plan: Specimen(s) sent for evaluation. PROCEDURE SUMMARY:- Percutaneous ultrasound-guided coaxial core needle biopsy- Additional procedure(s): None PROCEDURE DETAILS: Pre-procedureReferenceimaging for biopsy target: MRI abdomen dated 06/18/2020 series 17 image 8Consent: Informed consent for the procedure including risks, benefits and alternatives was obtained and time-out was performed prior to the procedure.Preparation: The site was prepared and draped using maximal sterile barrier technique including cutaneous antisepsis. Anesthesia/sedationLevel of anesthesia/sedation: Moderate sedation (conscious sedation)Anesthesia/sedation administered by: Independent trained observer under attending supervision with continuous monitoring of the patients level of consciousness and physiologic statusTotal intra-service sedation time (minutes): 24 Biopsy Local anesthesia was administered. Under i maging guidance as stated in the procedure summary, the biopsy needle was advanced to the target andbiopsy was performed.Coaxial needle: 17 gauge Core needle biopsy device: unbound technologies needle size: 18 gaugeNumber of core specimens: 3 Fine needle aspiration device: Not applicableFine needle size:Not applicableNumber of FNA specimens: Not applicable On-site biopsy touch preparation: Yes Additional sampling recommendations: NonePreliminary assessment of sample adequacy: Adequate Needle removalThe biopsy needle was removed and a sterile dressing was applied.Tract embolization: Gelfoam slurry ContrastContrast agent: NoneContrast volume (mL): 0 Radiation DoseNone Additional DetailsAdditional description of procedure: NoneEquipment details: NoneSpecimens removed: Biopsy samples as detailed aboveEstimated blood loss (mL): Less than 10Standardized report: SIR_Biopsy_v2 AttestationSigner name: Anuj Castanon M.D.I attest that I was present for the entire procedure. I reviewed the stored images and agree with the report as written. [id number] Interface, Radiology Results Incoming - 10/14/2020 6:39 PM CDT PROCEDURE: Image-guided biopsyProcedural PersonnelAttending physician(s): Anuj CastanonPre-procedure diagnosis: Ill- defined left hepatic massPost-procedure diagnosis: SameIndication: Histopathologic diagnosisPrevious biopsy of same target (QCDR): NoAdditional clinical history: NoneComplications: No immediate complications.IMPRESSION: Technically challenging but ultimately successful ultrasound guided biopsy of of an ill-defined lefthepatic mass.Plan: Specimen(s) sent for evaluation. PROCEDURE SUMMARY:- Percutaneous ultrasound-guided coaxial core needle biopsy- Additional procedure(s): NonePROCEDURE DETAILS:Pre- procedureReference imaging for biopsy target: MRI abdomen dated [...] procedure summary, the biopsy needle was advanced to the target and biopsy was performed.Coaxial needle: 17 gaugeCore needle biopsy device: AccelergyCore needle size: 18 gaugeNumber of core specimens: 3Fine needle aspiration device: Not applicableFine needle size: Not applicableNumber of FNA specimens: Not a pplicableOn-site biopsy touch preparation: Yes Additional sampling recommendations: NonePreliminary assessment of sample adequacy: AdequateNeedle removalThe biopsy needle was removed and a sterile dressing was applied.Tract embolization: Gelfoam slurryContrastContrast agent: NoneContrast volume (mL): 0 Radiation DoseNone Additional DetailsAdditional description of procedure: NoneEquipment details: NoneSpecimens removed: Biopsy samples as detailed aboveEstimated blood loss (mL): Less than 10Standardized report: SIR_Biopsy_v2AttestationSigner name: Anuj Castanon M.D.I attest that I was present for theentire procedure. I reviewed the stored images and agree with the report as written.[id number] HospitalPO[facility]INALYSIS W SPECIFIC [id number] 22:31:00 Test Item Value Reference Range Interpretation Comments POCT U SP GRAV (test 1.015 mg/dl 1.005-1.025 code = 3255) POCT PH U (test code = 6 mg/dl 5-8 3254) POCT U LEUK EST (test Trace Negative - code = 3263) Negative POCT U NIT (test code Negative Negative - = 3262) Negative POCT U PROT (test code Negative Negative - = 3259) Negative POCT U GLU (test code Negative Negative - = 3256) Negative POCT U KETONE (test Negative Negative - code = 3258) Negative POCT U UROBILI (test Negative 0.2-1 code = 3260) POCT U BILI (test code Negative Negative - = 3261) Negative POCT U BLD (test code Negative Negative - = 3257) Negative POCT U COLOR (test Janki code = 3266) POCT U APPEAR (test Cloudy code = 3267) AFSHIN (test code = AFSHIN) accurate development and interpretation of all internal controls Lab Interpretation Abnormal (test code = 53111-3) [facility] Notes Date/Time Note Provider Source 2021-05-19 12:36:00-00:00 [facility] ([facility]) History Physical - Adult REPORT#:[id number] REPORT STATUS: Signed DATE:05/19/21 TIME: 1236 PATIENT: SIMONA SHEPHERD UNIT #: [id number] ROOM/BED: [place] [id number] : 48 AGE: 70 SEX: F ATTEND: Cassandra Mccain MD ADM AUTHOR: Bob Desir REED DIPPER * ALL edits or amendments must be made on the ROSTR/computer document * History of Present Illness HPI Chief complaint: Aortic Stenosis PCP: PCP: Serafin Brown MD HPI: Ms Simona Underwood is a pleasant 70-year-old femal e with past medical history significant for aortic stenosis, liver c ancer (chemotherapy), DVT(on eliquis), and hypothyroidism has been experiencing progres sively worsening shortness of breath, even with minimal activities. Patient petty s known aortic stenosis and followed up with her cardiol ogist. Repeat echocardiogram revealed severe aortic stenosis with an KATIE 0.8cm2, Mean gradient of 37.08 and jet velocity of 2.19m/s. CV surgery consulted to evaluate need for interv ention on aortic valve. Patient seen and examined by Dr. Mccain. Echo mita stevenson. Patient has severe symptomatic aortic stenosis and will benefit from intervention on aortic valve. Given patient's age, frailty and other comorbidi ties, she is at high risk for surgical aortic valve replac ement. Her interest would best be served undergoing transcatheter aortic valve implantation(KAREN). Varghese irizarry was worked up and her case was discussed in the [facility] rence. She was found to be a suitable candidate for KAREN and has been admitted to the hospital today for the same. Informant/historian: patient, family/other at be dside History Additional medical history: liver CA Aortic Stenosis DVT hypothyroidism Additional surgical history: heart catheterization 04/25/21 Additional family history: Non contributory Alcohol use: Denies EtOH use Drug use: Denies recreational drugs Smoking status: Smoking status for patients 13 years old or old er: Never Smoker Medication/Allergy-Vaccine Hx Allergies: Coded Allergies: Sulfa (Sulfonamide Antibiotics) (Mild, HIVES ) Review of Systems Constitutional: Denies: chills, fatigue, fever. Skin: Denies: rash, swelling. Eyes: Denies: redness, discharge. Respiratory: Denies: SOB, wheezing. Cardiovascular: Denies: chest pain, MIRELES (dyspnea on exertion). GI: Denies: diarrhea, nausea, vomiting. Physical Exam VS/I O PATIENT WEIGHT: Weight (lb): 147 Weight (oz): 4.3 Weight (kg): 66.800 General appearance: alert, awake, oriented Head/Eyes: atraumatic, clear cornea ENT: moist mucosal membranes Neck: full range of motion, non-tender Cardiovascular: regular rate rhythm, normal hear t sounds Respiratory: clear to auscultation, no distress Abdomen/GI: decreased bowel sounds, active bowel sounds, soft Extremities: moves all Musculoskeletal: full range of motion Neuro/GOL[employer]ALL W[employer]ER: alert, oriented X 3 Skin: dry, intact Diagnosis, Assessment Plan Free Text DxA P Notes Free Text DxA P Notes: Ms Simona Underwood is a pleasant 70-year-old femal e with past medical history significant for aortic stenosis, liver c ancer (chemotherapy), DVT(on eliquis), and hypothyroidism has been experiencing progres sively worsening shortness of breath, even with minimal activities. Patient petty s known aortic stenosis and followed up with her cardiol ogist. Repeat echocardiogram revealed severe aortic stenosis with an KATIE 0.8cm2, Mean gradient of 37.08 and jet velocity of 2.19m/s. CV surgery consulted to evaluate need for interv ention on aortic valve. Patient seen and examined by Dr. Mccain. Echo mita stevenson. Patient has severe symptomatic aortic stenosis and will benefit from intervention on aortic valve. Given patient's age, frailty and other comorbidi ties, she is at high risk for surgical aortic valve replac ement. Her interest would best be served undergoing transcatheter aortic valve implantation(KAREN). P juan c was worked up and her case was discussed in the structural heart confe rence. She was found to be a suitable candidate for KAREN and has been admitted to the hospital today for the same. PLAN 1.Severe aortic stenosis: TAVR today 2. DVT Resume eliquis post 1 week procedure 3. Hypothyroidism Continue synthroid 4. Liver cancer Follow up with oncology for chemo treatment Electronically Signed by Bob Desir NP on 04/29 at 1245 at 1038 RPT #:[id number] END OF REPORT 2021-05-06 07:05:00-00:00 [facility] ([facility]) Discharge Summary REPORT#:[id number] REPORT STATUS: Signed DATE:05/06/21 TIME: 07 PATIENT: SIMONA SHEPHERD UNIT #: [id number] ROOM/BED: [place] [address] : 48 AGE: 70 SEX: F ATTEND: Breana Workman od, MD ADM AUTHOR: Umesh Metz REED DIPPER * ALL edits or amendments must be made on the el anchor.travel[employer]/computer document * PCP PCP PCP: PCP: Serafin Brown MD Discharge to: Left AMA General Information Problem List/A P: 1. Post op infection 2. Sepsis Date of admission: Observation Start Date: Date of admission: 05/05/21 Discharge date: 05/05/21 Admission diagnosis: Sepsis Fever Discharge diagnosis: Sepsis Post fever. Chest pain. S/p TAVR. Hospital course: This is a 70-year-old female with a past medical history of aortic stenosis, bile duct cancer, status pos t chemotherapy, DVT, on Eliquis; hypothyroidism, and hyperlipidemia, came to the hospital for the TAVR. She underwent TAVR. She was discharged home. She had a fever and CP. She came to ER and had a initial work up. She received ABX, fluid, Pain meds. She was admitted to hospital last night. She left AMA prior to we see her. Consultants: cardiovascular surgery Pt. condition on discharge: fair Allergies: Allergies: Sulfa (Sulfonamide Antibiotics) (Coded, Mild, HI VES, 05/03/21) Med Rec PCP PCP: PCP: Serafin Brown MD Objective VS/I O Last Documented: Result Date Time Pulse Ox 100 05/06 356 B/P 125/70 05/06 356 B/P Mean 88 05/06 356 Temp 36.9 05/06 356 Pulse 92 05/06 356 Resp 18 05/06 356 O2 Delivery Room air 05/05 1820 24 hour I O ending at 0700: 05/06 0700 05/05 1900 Intake Total Output Total Balance Patient 66.818 kg Weight Weight Stated/Reported Measurement Method PATIENT WEIGHT: Weight (lb): Weight (oz): Weight (kg): 66.818 Results Findings/Data: Laboratory Tests: 05/05 Chemistry Sodium (134 - 147 mEq/L) 130 L Potassium (3.4 - 5.0 mEq/L) 3.7 Chloride (100 - 108 mEq/L) 98 L Carbon Dioxide (21 - 33 mEq/l) 24 Anion Gap (0 - 20) 12 BUN (7 - 18 mg/dL) 14 Creatinine (0.6 - 1.3 mg/dL) 1.0 Glomerular Filtr Rate (70 - 80) 54.5 L Glucose (70 - 110 mg/dL) 118 H Lactic Acid (0.4 - 1.9 mmol/L) 1.2 Calcium (8.0 - 10.5 mg/dL) 8.6 Total Bilirubin (0.0 - 1.0 mg/dL) 0.50 Direct Bilirubin (0.0 - 0.30 MG/DL) 0.10 Indirect Bilirubin (MG/DL) 0.40 AST (15 - 37 IUnit/L) 43 H ALT (30 - 65 IUnit/L) 18 L Total Alk Phosphatase (20 - 125 IUnit/L) 75 Troponin I High Sens (0 - 34 ng/L) 1188 *H Total Protein (6.4 - 8.2 g/dL) 7.0 Albumin (3.4 - 5.0 g/dL) 3.60 LDL Cholesterol Measurd (0 - 100 mg/dL) 219.0 H Hematology WBC (4.5 - 11.0 x10 3/uL) 6.9 RBC (3.54 - 5.02 x10 6/uL) 2.37 L Hgb (11.0 - 15.0 g/dL) 7.9 L Hct (33.0 - 45.0 %) 23.5 L MCV (81.0 - 99.0 fL) 99.2 H MCH (27.0 - 33.0 pg) 33.3 H MCHC (33.0 - 37.0 g/dL) 33.6 RDW (11.5 - 14.5 %) 15.0 H Plt Count (150 - 400 x10 3/uL) 120 L MPV (7.0 - 9.0 fL) 12.8 H Neut % (Auto) (56.0 - 77.0 %) 68.4 Lymph % (Auto) (14.0 - 32.0 %) 18.1 Rolette % (Auto) (4.8 - 9.0 %) 11.8 H Eos % (Auto) (0.3 - 3.7 %) 1.0 Baso % (Auto) (0.0 - 2.0 %) 0.3 Neut # (Auto) (2.0 - 7.6 x10 3/uL) 4.73 Lymph # (Auto) (1.0 - 3.8 x10 3/uL) 1.25 Rolette # (Auto) (0.1 - 0.8 x10 3/uL) 0.82 H Eos # (Auto) (0.0 - 0.2 x10 3/uL) 0.07 Baso # (Auto) (0.0 - 0.2 x10 3/uL) 0.02 Abs Immat Gran (auto) (0.00 - 0.03 x10 3/uL) 0. 03 Add Manual Diff NO Immature Gran % (0.0 - 2.0 %) 0.4 Nucleated RBC % (0 - 0 %) 0.0 Nucleated RBCs # (Man) (0.0 - 0.1 x10 3/uL) 0.0 0 Radiology data: Recent Impressions: RADIOLOGY - XR CHEST 1 V 05/05 2004 Report Impression - Status: SIGNED Entered: 05/05/20212022 IMPRESSION: No acute cardiopulmonary findings. Impression By: CarolynVBSonny Bo Results: labs reviewed, vital signs stab le, x-ray personally reviewed, current med profile rev'd Discharge Instructions PCP PCP: PCP: Serafin Brown MD )( Follow up labs, proc, tx: PCP )( Discharge to: AMA Discharge Instructions Additional Discharge Routines: PCP Follow-Up, Co nsultant Follow-Up )( Diet: Cardiac Electronically Signed by Umesh Metz REED DIPPER on at 0709 at 1940 RPT #:[id number] END OF REPORT 2021-05-05 20:09:00-00:00 [facility] ([facility]) EMERGENCY PROVIDER REPORT REPORT#:[id number] REPORT STATUS: Signed DATE:05/05/21 TIME: 2008 PATIENT: SIMONA SHEPHERD UNIT #: [id number] ROOM/BED: [place] [address] AGE: 70 SEX: F PCP PHYS: Serafin Brown MD SERVICE AUTHOR: Susan Millard APR [facility] PHYSICIAN * ALL edits or amendments must be made on the el [employer]/computer document * Susan Millard 05/05/21 2009: HPI-Fever Free Text HPI Notes Free Text HPI Notes Pleasant 68-year-old patient presents to the ER with concerns of postoperative fever and infection after st ent placement yesterday. The patient was discharged this morning around noon and was advised to return to the ER with any fever or complications. The patient's daughter states xavier t she was approximately 101.5 at around 5:00 tonight. She states giving her some Tylenol, called the surgeon' s office, and was advised to present to the ER. Patient has a significant medical history of valentino leatha cancer therapy infusions. Her last chemo admission was on April 08. General Confirmed Patient Yes Initial Greet Date/Time 05/05/211822 PCP PCP: MD JOHANNY ADMIT: [facility]G Presentation Chief Complaint Fever, currently Hx Obtained From Patient, Daughter )( Onset Occurred Today, Hours ago Symptom Duration Since onset Progression since Onset Gradually worsening Context of Onset Post-op Quality Aching Review of Systems ROS Statements All systems rev neg except as marked. Focused Review of Systems Constitutional Reports: Chills, Fatigue, Fever, Weakness - gene ralized. Musculoskeletal Reports: Myalgia. Past Medical History - Adult Stated Complaint HAD SURGERY THIS AM WAS TOLD TO COME BACK FOR FEV Allergies Coded Allergies: Sulfa (Sulfonamide Antibiotics) (Mild, HIVES ) Home Medications Reported Medications LEVOTHYROXINE (SYNTHROID) 88 MCG PO DAILY APIXABAN (ELIQUIS) 5 MG PO BID Calculated Suicide Risk (nurs) No risk Additional Medical History liver CA Aortic Stenosis DVT hypothyroidism Additional Surgical History heart catheterization 04/25/21 Additional Family History Non contributory Alcohol Use Denies EtOH use Drug Use Denies recreational drugs Smoking status: Smoking status for patients 13 years old or old er: Never Smoker Physical Exam Vital Signs Vital Signs First Documented: Result Date Time Pulse Ox 100 05/05 1820 B/P 134/67 05/05 1820 B/P Mean 89 05/05 1820 O2 Delivery Room air 05/05 1820 Temp 99.2 05/05 1820 Pulse 97 05/05 1820 Resp 22 05/05 1820 Last Documented: Result Date Time Pulse Ox 100 05/05 1820 B/P 134/67 05/05 1820 B/P Mean 89 05/050 O2 Delivery Room air 05/05 1820 Temp 99.2 05/05 1820 Pulse 97 05/05 1820 Resp 22 05/05 1820 Review of Vital Signs Reviewed Free Text PE Notes Free Text PE Notes General/Const: General/Const Awake, Alert, No acute distress, Cooperative, weak, frail, 50-appearing Eyes: Eyes PERRL, EOMI, Conjunctiva dry, pale Ears/Nose/Throat: Ears/Nose/Throat Airway patent , Mucous membranes dry, pale MS Neck: Neck Supple, Full range of motion Resp/Chest: Respiratory/Chest Breath hyun nds diminished, Breath sounds = bilat, No respiratory distress, No rales, No rhonchi, N o wheezing Cardiovascular: Cardiovascular Heart rate NL, Re gular rhythm, Heart sounds NL Abdomen/GI: Abdomen/GI Soft, No tenderness, No g uarding, No rebound, BS normoactive, No distention Skin: Skin Color pale, Warm, Dry; surgical dress ing intact, clean and dry Neurologic: Neurologic Oriented X3, Speech NL Interpretation Diagnostics Lab Results Interpretation Results Laboratory Tests 05/05/211906: [Embedded Image Not Available] Laboratory Tests: 05/05 Chemistry Sodium (134 - 147 mEq/L) 130 L Potassium (3.4 - 5.0 mEq/L) 3.7 Chloride (100 - 108 mEq/L) 98 L Carbon Dioxide (21 - 33 mEq/l) 24 Anion Gap (0 - 20) 12 BUN (7 - 18 mg/dL) 14 Creatinine (0.6 - 1.3 mg/dL) 1.0 Glomerular Filtr Rate (70 - 80) 54.5 L Glucose (70 - 110 mg/dL) 118 H Lactic Acid (0.4 - 1.9 mmol/L) 1.2 Calcium (8.0 - 10.5 mg/dL) 8.6 Total Bilirubin (0.0 - 1.0 mg/dL) 0.50 Direct Bilirubin (0.0 - 0.30 MG/DL) 0.10 Indirect Bilirubin (MG/DL) 0.40 AST (15 - 37 IUnit/L) 43 H ALT (30 - 65 IUnit/L) 18 L Total Alk Phosphatase (20 - 125 IUnit/L) 75 Troponin I High Sens (0 - 34 ng/L) 1188 *H Total Protein (6.4 - 8.2 g/dL) 7.0 Albumin (3.4 - 5.0 g/dL) 3.60 LDL Cholesterol Measurd (0 - 100 mg/dL) 219.0 H Hematology WBC (4.5 - 11.0 x10 3/uL) 6.9 RBC (3.54 - 5.02 x10 6/uL) 2.37 L Hgb (11.0 - 15.0 g/dL) 7.9 L Hct (33.0 - 45.0 %) 23.5 L MCV (81.0 - 99.0 fL) 99.2 H MCH (27.0 - 33.0 pg) 33.3 H MCHC (33.0 - 37.0 g/dL) 33.6 RDW (11.5 - 14.5 %) 15.0 H Plt Count (150 - 400 x10 3/uL) 120 L MPV (7.0 - 9.0 fL) 12.8 H Neut % (Auto) (56.0 - 77.0 %) 68.4 Lymph % (Auto) (14.0 - 32.0 %) 18.1 Rolette % (Auto) (4.8 - 9.0 %) 11.8 H Eos % (Auto) (0.3 - 3.7 %) 1.0 Baso % (Auto) (0.0 - 2.0 %) 0.3 Neut # (Auto) (2.0 - 7.6 x10 3/uL) 4.73 Lymph # (Auto) (1.0 - 3.8 x10 3/uL) 1.25 Rolette # (Auto) (0.1 - 0.8 x10 3/uL) 0.82 H Eos # (Auto) (0.0 - 0.2 x10 3/uL) 0.07 Baso # (Auto) (0.0 - 0.2 x10 3/uL) 0.02 Abs Immat Gran (auto) (0.00 - 0.03 x10 3/uL) 0. 03 Add Manual Diff NO Immature Gran % (0.0 - 2.0 %) 0.4 Nucleated RBC % (0 - 0 %) 0.0 Nucleated RBCs # (Man) (0.0 - 0.1 x10 3/uL) 0.0 0 Microbiology: Date/Time Procedure - Status Source Growth 05/05 1959 Blood Culture - COMP BLOOD 05/05 1907 Blood Culture - COMP BLOOD Recent Impressions: RADIOLOGY - XR CHEST 1 V 05/05 2004 Report Impression - Status: SIGNED Entered: 05/05/20212022 IMPRESSION: No acute cardiopulmonary findings. Impression By: [email or web address] Sonny Guardado Lab Imaging Statement Laboratory radiographic studies reviewed and con sidered in the medical decision-making. Re-Evaluation MDM Free Text MDM Notes Free Text MDM Notes Delay in disposition due to delay in order completion and lab completion/results processing. Re-Evaluation/Progress Re-Evaluation/Progress Text/Dict Note Patient is sitting and resting quietly. No acute distress at this time. Reviewed plan of care due to fever development, per cardiothoracic surgeon. Advised admission, IV antibiotics, and e valuation by cardiac team. Patient and daughter voiced understanding and agree with tiffanie n of care. Re-Eval Status Improved Eval Following Treatment Pt. feels better, Cond ition improved Pain Re-Evaluation Pain improved Exam Post Tx - General Alert, Appears non-toxic , Vital signs stable Plan Post Re-Eval Plan admit Tissue Perfusion Reassessment Patient tissue perfusion reassessment completed. ED Course Medication(s) Ordered Medication(s) Ordered: Anti-Infective Agents Sig/Rajani Start time Last Medication Dose Route Stop Time Status Admin Piperacillin Sod/ 3.375 GM X1ED STA 05/05 1838 DC 05/05 Tazobactam Sod IV 05/05 Sodium Chloride 100 ML Central Nervous System Agents Sig/Rajani Start time Last Medication Dose Route Stop Time Status Admin Acetaminophen 650 MG Q4H PRN PRN 05/05 2045 AC PO 05/06 193 Acetaminophen 1,000 MG X1ED STA 05/05 1837 DC 1 PO 05/05 1838 191 Electrolytic, Caloric, And Joe Sig/Rajani Start time Last Medication Dose Route Stop Time Status Admin Sodium Chloride 1,000 ML .Q10H 05/05 2045 AC IV 05/06 193 Sodium Chloride 0 ASDIR PRN 05/05 1845 AC IV 05/06 173 Sodium Chloride 500 ML X1ED STA 05/05 1839 DC 1 IV 05/05 1938 191 Gastrointestinal Drugs Sig/Rajani Start time Last Medication Dose Route Stop Time Status Admin Ondansetron HCl 4 MG Q6H PRN PRN 05/05 2045 AC IV 05/06 1938 Ondansetron HCl 4 MG X1ED STA 05/05 1837 DC IV 05/05 Consultation Consultation Referral/Consult Name Alfonso Mccain MD Tire Recapper Called Cardiology, Surgeon Requested Call Time 2009 Requested Call Date 05/05/21 Tire Recapper ADMIT TO MEDICINE Free Text MDM Notes Free Text MDM Notes Patient and daughter are very nervous about read mission following a fever development and possible surgical complications. Extensive patient and family reassurance of plan of care. Discussed hydration status, IV antibiotics, and antipyretic medication. Reevaluation by medicine and cardiac team medically necessary to prevent complication development. Patient Discharge Departure Vital Signs/Condition Vital Signs First Documented: Result Date Time Pulse Ox 100 05/05 1820 B/P 134/67 05/05 1820 B/P Mean 89 05/05 1820 O2 Delivery Room air 05/05 1820 Temp 99.2 05/05 1820 Pulse 97 05/05 1820 Resp 22 05/05 1820 Last Documented: Result Date Time Pulse Ox 100 05/05 1820 B/P 134/67 05/05 1820 B/P Mean 89 05/05 1820 O2 Delivery Room air 05/05 1820 Temp 99.2 05/05 1820 Pulse 97 05/05 1820 Resp 05/05 All vital signs available at the time of this en try have been reviewed. Clinical Impression Clinical Impression Primary Impression: Post op infection Secondary Impressions: Sepsis Disposition Decision Admit Admit Physician Name Ladarius Workman MD Admit Physician Hospitalist Request Time 2055 Request Date 05/05/21 )( Admission Accepts Yes )( Accepted Time 2055 )( Accepted Date 05/05/21 Call Information will see patient Discharge/Care Plan Counseled Regarding Diagnosi s, Lab results, Imaging studies, Need for admission Admit Note I have spoken with the patie nt and/or caregivers. I have explained the patient's condition, diagnoses and neil atment plan based on the information available to me at this time. I have answered the patient's and/ or caregiver's questions and addressed any concerns. The patient and/or careg kelvin have as good an understanding of the patient 's diagnosis, condition and treatment plan as can be expected at this point. The patient has been stabilized within the capability of the emergency department. The patient wi ll be transported for further care and management or will be moved to an observation or inpatient service. I have communicated with the staff or medical p ractitioner taking over this patient's care. Hold in ED Note I have spoken with the patie nt and/or caregivers. I have explained the patient's condition, diagnoses and neil atment plan based on the information available to me at this time. I have answered the patient's and/ or caregiver's questions and addressed any concerns. The patient and/or careg kelvin have as good an understanding of the patient 's diagnosis, condition and treatment plan as can be expected at this point. The patient has been stabilized within the capability of the emergency department. Although the emergency department has completed all appropriate management and is prepared to transp ort the patient to an observation or inpatient service, there are no a vailable beds. Therefore the patient will be placed in "ED Hold" status until such time as a bed becomes available. Free Text Depart Notes Free Text Depart Notes Change of inpatient provider from [facility] to Suleiman Sahni 05/17/21 1246: Patient Discharge Departure Supervising Physician Note MidLv Saw Pt Alone I have reviewed the PA/REED DIPPER's note and plan of car e. I was available for consultation as needed at al l times during the patient's visit in the emergency department. I agree with the clinical impression , plan and disposition. at 1443 Electronically Signed by Suleiman Pena MD on 05/17 at 1247 RPT #:[id number] END OF REPORT 2021-05-05 19:16:00-00:00 [id number] [place] [address] PATIENT NAME: SIMONA SHEPHERD ADMIT DATE: 05/05/21 ACCOUNT NO: [id number] ROOM NO: [place] AGE: 70 REPORT TYPE: eELECTROCARDIOGRAM REPORT SEX: F ADMITTING PHYSICIAN:Ladarius Workman MD ATTENDING PHYSICIAN:Ladarius Workman MD Order: [id number] Test Reason : Test Date/Time Stamp: MonMay 05 2021 19:16:32 Blood Pressure : / mmHG Vent. Rate : 092 BPM Atrial Rate : 092 BPM P-R Int : 148 ms QRS Dur : 082 ms QT Int : 350 ms P-R-T Axes : 074 060 058 degree s QTc Int : 432 ms Normal sinus rhythm Cannot rule out Anterior infarct , age undetermi sonu Abnormal ECG When compared with ECG of 05-MAY-2021 06:11, No significant change was found Confirmed by MD KAMARI, THAO ([id number]) on 06/20 9:26:20 AM Referred By: GENERIC EDDOC Confirmed by:THAO FERREIRA MD Electronically Signed by Thao Benites MD on 1 08/21/20 at 0926 PATIENT NAME: SIMONA SHEPHERD 089 2021-05-05 11:58:00-00:00 [id number] [place] [address] PATIENT NAME: SIMONA SHEPHERD ADMIT DATE: 05/04/21 ACCOUNT NO: [id number] [place] [facility] [place] AGE: 70 REPORT TYPE: CARDIAC CATHETERIZATION REPORT SEX: F ADMITTING PHYSICIAN:Alfonso Mccain MD ATTENDING PHYSICIAN:Alfonso Mccain MD PROCEDURE DATE: 05/04/2021 PROCEDURES PERFORMED: Transc atheter aortic valve replacement using 23-mm Jass S3 Ultra valve via right femoral artery access. INDICATIONS: Severe symptomatic aortic valve austin nosis. ACCESS: 1. Right femoral artery, 14-Anguillan, closed with Perclose and 8-Anguillan Angio-Seal. 2. Left femoral artery, 5-Anguillan access closed w ith 6-Anguillan Angio-Seal. 3. Right femoral vein 8-Anguillan, closed with manu al pressure. COMPLICATIONS: None. BLEEDING: Less than 50 mL. DIRECTOR AUTO: Vinny Cuba MD. SECONDARY GUT CARRIER/RETANNED LEATHER ROLLER: Thao Benites MD . PRIMARY SURGEON: Alfonso Mccain MD. DESCRIPTION OF PROCEDURE: After risks, benefits, and alternatives were explained, the patient agreed to proceed and sig sonu informed consent. The patient was brought into the hybrid operating room and monitored anesthesia care was applied. Then, we took a micropuncture kit u nder ultrasound guidance, I accessed the right femoral artery, right femoral vein and left femoral artery, placed 6-Anguillan sheath in each location. Subsequ ently, I deployed a Perclose suture in the right femoral artery, then dilated to 14-Anguillan Larios sheath. Systemic heparin was given a nd took a pigtail catheter through the left femoral artery into the aortic root, took a balloon-tipp ed pacemaker wire through the femoral vein into the RV and pacemaker was tested and secured in place. Then, I took an AL1 catheter into the aortic root over a J-wire using straight wire across the severely stenosed aortic valve and then advanced the wire across the catheter over the wire. Then, we exchanged for a pigtail. Subsequently, took an Amplatz extra stiff wire into the LV, removed the pigtail catheter and we took the 23-mm Jass S3 Ult ra valve into the aortic root over the Amplatz wire and valve was assembled. The patient received sy stemic heparin to assure ACT level above 250. Subsequently, the valve was adv anced to cross the original aortic valve. Aortic root an giogram was done and the position was satisfactory. Then, under rapid pacing control settin g, the valve was deployed successfully and the patient is hemodynamically stable. A bed side echo revealed good PATIENT NAME: SIMONA SHEPHERD 695 position of the valve with no perivalvular leak, so the delivery system was removed. Wire was removed. Then, we denny yumiko the right femoral artery sheath by deploying the Perclose suture and 8-Fren ch Angio-Seal with good hemostasis. We did a limited angiogram of the right femoral art luz and there was no extravasation. Such, we removed the left femoral artery access and 6-Anguillan Angio-Seal was used for closure with good hemost asis. Venous system also was removed after removing the pacemaker wir e and manual pressure was applied with good hemostasis. CONCLUSION: Successful transcatheter aortic valv e replacement using 23-mm Jass S3 Ultra valve via right femoral artery a ccess. PLAN: Admit for observation overnight, echo in t he morning and follow up with me in the office within a week post discharge. Dictated By: Vinny Cuba MD WT: CATH:ANTONIO/ELIO/ALTHEA Conf#: [id number]#: [id number] Authenticated by Vinny Cuba MD On 05/10/2021 01:33:08 PM Electronically Signed by Vinny Cuba MD on at 0133 PATIENT NAME: SIMONA SHEPHERD 695 2021-05-05 11:02:00-00:00 [facility] Discharge Summary REPORT#:[id number] REPORT STATUS: Signed DATE:05/05/21 TIME: 110 PATIENT: SIMONA SHEPHERD UNIT #: [id number] [place] [facility] [place] [place] AGE: 70 SEX: F ATTEND: Cassandra Mccain MD ADM AUTHOR: Abel Edward * ALL edits or amendments must be made on the ROSTR/computer document * General Information Discharge date: 05/05/21 Hospital course: Simona Shepherd is a 70-year-old female with a pas t medical history that significant for severe aortic stenosis, liver ca ncer status post chemotherapy needing clearance for liver surgery, DVT on Eliq uis, dyslipidemia, who was admitted for elective TAVR p rocedure. Due to symptoms of shortness of breath on exertion as well as fatigue, patient was worked up by her teacher tutor. Echo done on 04/30/2021 showed a KATIE of 0.8 cm , AV m rocio gradient 38.44, AV max 4.09 m/s. Due to the severe symptomatic aortic stenosis, patient's profile was discussed in the structural heart and patient wa s deemed a suitable candidate for transcatheter aortic valve replacement. Khloe ent STS score calculated at 2.079% with NYHA class IV symptoms. Patient dejon brooks was admitted on May 04, 2021 for TAVR with the placement of a 23 mm Larios jass S3 ultra pericardial valve via transfemoral approach and MAC. Patient tolerated the procedure without any postop complications. Khloe ent did well overnight and remained hemodynamically stable. Patient was seen by cardiology and CV surgery and patient is stable for discharge home today. Post TAVR discharge instructions/handout given to the patient who ve rbalized understanding of the instructions given. Med Rec PCP PCP: PCP: Serafin Brown MD Med Rec Discharge meds: Stop taking the following medications: ENOXAPARIN (LOVENOX) 80 MG/0.8 ML DISP.SYRIN 0.7 MILLILITERS SUBCUTANEOUS TWICE DAILY. Continue taking these medications: LEVOTHYROXINE (SYNTHROID) 88 MCG TAB 88 MICROGRAM ORAL DAILY. APIXABAN (ELIQUIS) 5 MG TAB 5 MILLIGRAM ORAL TWICE DAILY. Objective VS/I O Last Documented: Result Date Time Pulse 90 05/05 1048 Pulse Ox 97 05/05 1000 B/P 131/58 05/05 1000 B/P Mean 84 05/05 1000 Resp 22 05/05 1000 Temp 36.4 05/05 0400 O2 Delivery Simple mask 05/04 1640 O2 Flow Rate 7 05/04 1640 PATIENT WEIGHT: Weight (lb): 147 Weight (oz): 4.3 Weight (kg): 66.800 General appearance: alert, awake, oriented Cardiovascular: regular rate rhythm, normal hear t sounds, BP/pulses equal bilat. Respiratory: clear to auscultation, no distress, no tenderness Extremities: moves all, no edema-all extremities Skin: dry, intact Assess/Plan Problem List/A P: 1. Severe aortic stenosis 2. Liver cancer 3. DVT (deep venous thrombosis) Free Text A P: Symptomatic severe aortic stenosis * Patient is status post transcatheter aortic va lve replacement with a 23 mm Can'tWait sapein ultra valve via -trans femoral approach under MAC. * Patient tolerated procedur e without any postoperative complications.Patient is currently hemodynamically stable and ambulated w ithout difficulty. * Patients bilateral groin incision is soft with out hematoma, no signs of bleeding or infection and right groin incision c losed with dermabond. * Post op echo reviewed by Fill Plant Operator today suggestive of a normal-appearing bioprosthetic aortic valve * Due to her history of DVT- Per Rosa Elena, okay to resume Eliquis this a.m. * Patient instructed to follow up with Dr.Chaugl lafleur in the clinic in 1 week. * Patient instructed to follow-up with regular c ardiologist Dr Cuba in 1-2 weeks. * Also instructed to follow-up in the valve clin ic in 30 days and 1 year for Medicare Registry Visit. * Post TAVR discharge instru ctions /handout given to the patient who verbalized understanding of the instructions given and khloe ent is notified to report any complaints of chest pain, shortness of breath li ghtheadedness or dizziness to teacher tutor. Discharge Instructions PCP )( Discharge to: Home/Self Care Discharge Instructions Additional Discharge Routines: PCP Follow-Up, At tending Follow-Up, Tire Recapper Follow-Up )( Diet: Cardiac )( Activity: As Tolerated Follow-up Appointments PCP follow up: PCP: Serafin Brown MD PCP follow up timeframe: In 1-2 weeks Attending Physician: Attending Physician: Alfonso Mccain MD Attending physician follow up timeframe: In 1-2 weeks Consulting provider 1: Provider 1: Vinyn Cuba MD Specialty: CardiologyInterventional Consult follow up timeframe: In 1-2 weeks Electronically Signed by Abel Edward on 1 07/17/20 at 1120 RPT #:[id number] END OF REPORT 2021-05-05 10:44:00-00:00 [facility] ([facility] Cardiology Progress Note REPORT#:[id number] REPORT STATUS: Signed DATE:05/05/21 TIME: 1044 PATIENT: SIMONA SHEPHERD UNIT #: [id number] ROOM/BED: [place] [address] : 48 AGE: 70 SEX: F ATTEND: Cassandra Mccain MD ADM AUTHOR: Judi Adams TIEING MACHINE OPERATOR * ALL edits or amendments must be made on the ROSTR/SeatNinja document * Subjective Patient reports: No: complaints. Objective General VS/I O: 24 hour I O ending at 0700: 05/05 0700 05/04 1900 Intake Total Output Total Balance Number Voids 1 Vital Signs: Date Time Temp Pulse Resp B/P B/P Pulse O2 O2 F low FiO2 Mean Ox Delivery Rate 05/05 0700 76 18 117/60 80 99 05/05 0600 70 14 107/51 74 100 05/05 0500 75 27 117/59 85 100 05/05 0400 36.4 05/05 0400 65 13 105/54 78 100 05/05 0300 73 12 112/57 82 99 05/05 0200 70 14 119/58 83 98 05/05 0100 70 13 117/56 80 98 05/05 0000 36.6 05/05 0000 76 34 93/51 67 99 05/04 2330 70 14 101/58 77 98 05/04 2315 77 28 106/61 75 99 05/04 2300 69 11 95/51 69 97 05/04 2230 68 13 107/59 80 97 05/04 2200 67 12 102/54 74 97 05/04 2130 70 27 106/55 72 97 05/04 2100 66 11 118/59 85 97 05/04 2030 66 12 106/58 78 97 05/04 2000 69 14 106/55 74 98 05/040 66 12 105/58 79 97 05/04 1923 36.4 05/04 1900 71 13 105/59 79 97 05/04 1640 36.5 74 14 139/63 100 Simple 7 mask PATIENT WEIGHT: Weight (lb): 147 Weight (oz): 4.3 Weight (kg): 66.800 Medications: Active Meds + DC'd Last 24 Hrs Mupirocin (BACTROBAN 2% 22 GM OINTMENT) 1 APPLIC BID NASAL Levothyroxine Sodium (Synthroid) 88 MCG DAILY 06 00 PO Hydralazine HCl (APRESOLINE) 10 MG Q6H PRN PRN I V Phenylephrine HCl (MARY LOU-SYNEPHRINE 1000MCG/NS 10M L INJ) 0 .STK-MED ONE I- JOVANY (DC) Heparin Sodium (HEPARIN SODIUM) 0 .STK-MED ONE . ROUTE (DC) Acetaminophen (TYLENOL) 650 MG Q6H PRN PRN PO Atropine Sulfate (ATROPINE SULFATE 0.1MG/ML SYR) 0.5 MG ASDIR PRN IV Docusate Sodium (COLACE) 100 MG BID PRN PO Hydrocodone Bitart/Acetaminophen (NORCO 5/325) 2 TAB Q4H PRN PRN PO Ondansetron HCl (ZOFRAN) 4 MG Q6H PRN PRN IV Sodium Chloride (SODIUM CHLORIDE 0.9%) 500 ML DIR PRN IV Tramadol HCl (ULTRAM) 50 MG Q4H PRN PRN PO Heparin Sodium/Sodium Chloride (HEPARIN 2,000 UN ITS/NS 1,000mL) 1,000 ML .STK-MED ONE IV (DC) Heparin Sodium/Sodium Chloride (HEPARIN 1,000 UN ITS/NS 500ML) 1,000 ML .STK- MED ONE IV (DC) Cefazolin Sodium (KEFZOL OR ANCEF) 0 .STK-MED ON E .ROUTE (DC) Heparin Sodium/Sodium Chloride (HEPARIN 2,000 UN ITS/NS 1,000mL) 2,000 ML .STK-MED ONE IV (DC) Lidocaine HCl (LIDOCAINE HCL/PF) 0 .STK-MED ONE .ROUTE (DC) Protamine Sulfate (PROTAMINE SULFATE) 0 .STK-ME D ONE IV (DC) Dexamethasone Sodium Phosphate (DECADRON) 0 .STK -MED ONE .ROUTE (DC) Dexmedetomidine HCl (PRECEDEX) 0 .STK-MED ONE IV (DC) Ephedrine Sulfate (ePHEDrine sulfate) 0 .STK-MED ONE .ROUTE (DC) Fentanyl Citrate (SUBLIMAZE) 0 .STK-MED ONE .ROU TE (DC) Glycopyrrolate (GLYCOPYRROLATE) 0 .STK-MED ONE . ROUTE (DC) Heparin Sodium (HEPARIN SODIUM) 0 .STK-MED ONE . ROUTE (DC) Lidocaine HCl (XYLOCAINE) 0 .STK-MED ONE .ROUTE (DC) Midazolam HCl (VERSED) 0 .STK-MED ONE .ROUTE (DC ) Ondansetron HCl (ZOFRAN) 0 .STK-MED ONE .ROUTE ( DC) Propofol (DIPRIVAN 200MG/20ML INJECTION) 20 ML . STK-MED ONE IV (DC) Sodium Chloride (SODIUM CHLORIDE 0.9%) 100 ML .S TK-MED ONE IV (DC) Midazolam HCl (VERSED) 0 .STK-MED ONE .ROUTE (DC ) Fentanyl Citrate (SUBLIMAZE) 100 MCG PACU Q10MIN PRN PRN IV (DC) Fentanyl Citrate (SUBLIMAZE) 50 MCG PACU Q10MIN PRN PRN IV (DC) Hydralazine HCl (APRESOLINE) 2 MG PACU Q10MIN AK N PRN IV (DC) Hydrocodone Bitart/Acetaminophen (NORCO 5/325) 1 TAB PACU ONCE PO (DC) Hydromorphone HCl (DILAUDID) 1 MG PACU Q10MIN AK N PRN IV (DC) Hydromorphone HCl (DILAUDID) 0.5 MG PACU Q5MIN P RN PRN IV (DC) Insulin Human Lispro (HUMALOG) 0 PACU ONCE PRN S UBQ (DC) Labetalol HCl (LABETALOL HCL) 5 MG PACU Q10MIN P RN PRN IV (DC) Meperidine HCl (DEMEROL 50MG/ML) 12.5 MG PACU ON CE PRN IV (DC) Morphine Sulfate (morphine SULFATE) 2 MG PACU Q1 0MIN PRN PRN IV (DC) Ondansetron HCl (ZOFRAN) 4 MG PACU ONCE PRN IV ( DC) Ropivacaine (NAROPIN 0.5% 150 MG/30mL) 150 MG DIR PRN LOCAL Tramadol HCl (ULTRAM) 50 MG PACU ONCE PO (DC) Cefazolin Sodium (KEFZOL OR ANCEF) 2 GM PREOP USED CAR SALES MANAGER IV (CKD) Sodium Chloride (SODIUM CHLORIDE) 20 ML ASDIR IV Physical Exam General appearance: alert, awake, oriented, no a cute distress Cardiovascular: CV assessment: regular rate and rhythm Respiratory: no distress Abdomen: no distention Genitourinary: no walsh Lower extremity: LE assessment: no edema Neuro/GOLF BALL WINDER: oriented X 3, normal speech Psychiatry: normal affect, normal judgment/insig ht, normal mood, no hallucinations Results Findings/Data: Laboratory Tests 05/05 427 Chemistry Sodium (134 - 147 mEq/L) 138 Potassium (3.4 - 5.0 mEq/L) 3.9 Chloride (100 - 108 mEq/L) 106 Carbon Dioxide (21 - 33 mEq/l) 24 Anion Gap (0 - 20) 12 BUN (7 - 18 mg/dL) 13 Creatinine (0.6 - 1.3 mg/dL) 0.8 Glomerular Filtr Rate (70 - 80) 70.5 Glucose (70 - 110 mg/dL) 93 Calcium (8.0 - 10.5 mg/dL) 8.4 Phosphorus (2.5 - 4.9 MG/DL) 5.0 H Total Bilirubin (0.0 - 1.0 mg/dL) 0.40 AST (15 - 37 IUnit/L) 40 H ALT (30 - 65 IUnit/L) 14 L Total Alk Phosphatase (20 - 125 IUnit/L) 69 Total Protein (6.4 - 8.2 g/dL) 6.4 Albumin (3.4 - 5.0 g/dL) 3.00 L Laboratory Tests 05/04 05/04 05/04 05/04 1617 1550 1539 1527 Coagulation Activated Coag Time (74 - 137 SEC) 120 263 H 24 1 H 219 H Laboratory Tests 05/05 427 Hematology WBC (4.5 - 11.0 x10 3/uL) 4.9 RBC (3.54 - 5.02 x10 6/uL) 2.37 L Hgb (11.0 - 15.0 g/dL) 7.8 L Hct (33.0 - 45.0 %) 23.7 L MCV (81.0 - 99.0 fL) 100.0 H MCH (27.0 - 33.0 pg) 32.9 MCHC (33.0 - 37.0 g/dL) 32.9 L RDW (11.5 - 14.5 %) 14.7 H Plt Count (150 - 400 x10 3/uL) 119 L MPV (7.0 - 9.0 fL) 12.6 H Neut % (Auto) (56.0 - 77.0 %) 68.2 Lymph % (Auto) (14.0 - 32.0 %) 19.3 Rolette % (Auto) (4.8 - 9.0 %) 11.7 H Eos % (Auto) (0.3 - 3.7 %) 0.0 L Baso % (Auto) (0.0 - 2.0 %) 0.4 Neut # (Auto) (2.0 - 7.6 x10 3/uL) 3.31 Lymph # (Auto) (1.0 - 3.8 x10 3/uL) 0.94 L Rolette # (Auto) (0.1 - 0.8 x10 3/uL) 0.57 Eos # (Auto) (0.0 - 0.2 x10 3/uL) 0.00 Baso # (Auto) (0.0 - 0.2 x10 3/uL) 0.02 Abs Immat Gran (auto) (0.00 - 0.03 x10 3/uL) 0. 02 Add Manual Diff NO Immature Gran % (0.0 - 2.0 %) 0.4 Nucleated RBC % (0 - 0 %) 0.0 Nucleated RBCs # (Man) (0.0 - 0.1 x10 3/uL) 0.0 0 Results: labs reviewed, vital signs stable, rhyt hm personally rev'd Telemetry Interpretation: sinus rhythm Echo results: Summary: 1. Left ventricle: The cavity size is normal. Wa ll thickness is mildly increased. Systolic function is normal. The est imated ejection fraction is 55-60%. Wall motion is normal; ther e are no regional wall motion abnormalities. Doppler parameters are co nsistent with abnormal left ventricular relaxation (grade 1 diastolic dysfunction). 2. Right ventricle: The RV pressure during systo le by Doppler is 24 mm Hg. 3. Aortic valve: There is a bioprosthetic valve. There is a Larios Intuity Elite, 23 mm transcatheter valve that i s well seated in the aortic valve position. 4. Mitral valve: There is mild regurgitation. 5. Tricuspid valve: There is trivial regurgitati on. 6. Pericardium, extracardiac: A trivial pericard ial effusion is identified anterior to the heart. Diagnosis, Assessment Plan Plan discussed with: patient, nurse Free Text DxA P Notes Free Text DxA P Notes: 1. Aortic stenosis s/p Karen right groin access stable Patient is stable post procedure echo showed EF 55-50%, and well s eated bioprosthetic valve Okay to discharge from cardiology discharge documentation and medications to be taken care of by the structural REED DIPPER coordinator 2. DVT on Eliquis at 1224 Electronically Signed by Thao Benites MD on at 1151 RPT #:[id number] END OF REPORT 2021-05-05 10:22:00-00:00 [id number] [place] [address] PATIENT NAME: SIMONA SHEPHERD ADMIT DATE: 1 ACCOUNT NO: [id number] ROOM NO: .3304 AGE: 70 REPORT TYPE: eECHOCARDIOGRAM REPORT SEX: F ADMITTING PHYSICIAN:Alfonso Mccain MD ATTENDING PHYSICIAN:Alfonso Mccain MD *[place] [address] Transthoracic Echocardiogram Patient: Simona Shepherd Study Date: 05/05/2021 BP: 139 / 63 Location: [facility] URN: [id number] 8695 : 1950 Age: 70 Height: 61 in / 154.9 cm Gender: F Weight: 146 .7 lb / 66.7 kg BMI/BSA: 27.8 kg/m 2 / 1.71 m 2 *Ordering Physician: Abel Rogers *Interpreting Physician: * Thao Benites MD *Oil Well Directional Surveyor: * Huyen Loyola Indications: POST TAVR. Study data: Transthoracic echocardiogram. Proced ure: Transthoracic echocardiography was performed. Image quality wa s adequate. Complete 2D, complete spectral Doppler, and color Doppler . Location: Bedside. Patient status: Inpatient. Patient room number: 3304. Study status: Routine. Findings Left ventricle: The cavity size is normal. Wall thickness is mildly increased. Systolic function is normal. The jordan mated ejection fraction is 55-60%. Wall motion is normal; there are no r egional wall motion abnormalities. Doppler parameters are consistent with abnormal left ventricular relaxation (grade 1 diastolic dysfun ction). Right ventricle: The cavity size is normal. Syst olic function is PATIENT NAME: SIMONA SHEPHERD 695 normal. Left atrium: The atrium is normal in size. Right atrium: The atrium is normal in size. Aorta: Aortic root: The aortic root is normal in size. Aortic valve: There is a bioprosthetic valve. Post TAVR: There is a Larios Intuity Elite, 23 mm transcatheter valve that is well seated in the aortic valve position . There is no evidence of stenosis. There is no regurgitation. Mitral valve: The valve is structurally normal. There is no evidence of stenosis. There is mild regurgitatio n. Tricuspid valve: The valve is structurally meir l. There is trivial regurgitation. Pulmonic valve: The valve is structurally normal . There is no regurgitation. Pericardium: A trivial pericardial effusion is i dentified anterior to the heart. Pulmonary arteries: The main pulmonary artery is normal-sized. Systemic veins: Inferior vena cava: The vessel is normal in size . Measurements Left ventricle Value Ref SYDNEE, LAX 3.6 cm 3.8 - 5.2 ESD, LAX 2.5 cm 2.2 - 3.5 ESD/bsa, LAX 1.5 cm/m 2 1.3 - 2.1 FS, LAX 30 % 27 - 45 ESD/bsa major ax, A4C 3.8 cm/m 2 --------- SYDNEE/bsa minor ax, A4C 3.8 cm/m 2 --------- SYDNEE major ax, A2C 7.7 cm --------- SYDNEE/bsa major ax, A2C 4.5 cm/m 2 --------- PW, ED 1.2 cm 0.6 - 0.9 IVS/PW, ED 0.99 --------- EF 59 % 54 - 74 LVOT Value Ref Diam, S 1.90 cm --------- Area 2.8 cm 2 --------- Peak asia, S 1.05 m/sec --------- Mean asia, S 0.68 m/sec --------- VTI, S 27.0 cm --------- Peak grad, S 4 mm Hg --------- Mean grad, S 2 mm Hg --------- SV 76 ml --------- SV/bsa 45 ml/m 2 --------- Ventricular septum Value Ref IVS, ED 1.2 cm 0.6 - 0.9 Right ventricle Value Ref SYDNEE, LAX 2.6 cm --------- Pressure, S 24 mm Hg --------- PATIENT NAME: SIMONA SHEPHERD [id number] RVOT Value Ref Peak v, S 1.05 m/sec --------- Peak grad, S 4 mm Hg --------- Left atrium Value Ref Vol/bsa, ES, 1-p A4C 24 ml/m 2 11 - 40 Vol/bsa, ES, A/L 26 ml/m 2 16 - 34 AP dim, ES MM 3.2 cm 2.7 - 3.8 LA/Ao root ratio, MM 1.08 --------- Aortic valve Value Ref Leaflet sep, MM 1.55 cm --------- Peak v, S 2.52 m/sec --------- Mean v, S 1.56 m/sec --------- VTI, S 52.0 cm --------- Mean grad, S 11.3 mm Hg --------- Peak grad, S 25.3 mm Hg --------- LVOT/AV, VTI ratio 0.52 --------- KATIE, VTI 1.47 cm 2 --------- LVOT/AV, Vpeak ratio 0.42 --------- KATIE, Vmax 1.18 cm 2 --------- Mitral valve Value Ref E-septal separation 0.4 cm --------- E-F slope 0.05 m/sec --------- Peak E 0.93 m/sec --------- Peak A 1.33 m/sec --------- Decel time 226 ms --------- PHT 65 ms --------- Peak grad, D 3.5 mm Hg --------- Peak E/A ratio 0.7 --------- MVA, PHT 3.4 cm 2 --------- Tricuspid valve Value Ref TR peak v 1.87 m/sec <=2.8 Peak RV-RA grad, S 14 mm Hg --------- Aortic root Value Ref Root diam, ED MM 3.00 cm --------- Pulmonary artery Value Ref Pressure, S 19.5 mm Hg --------- Systemic veins Value Ref Estimated CVP 10 mm Hg --------- Conclusions Summary: 1. Left ventricle: The cavity size is normal. Wa ll thickness is mildly increased. Systolic function is normal. The est imated ejection PATIENT NAME: SIMONA SHEPHERD 695 fraction is 55-60%. Wall motion is normal; ther e are no regional wall motion abnormalities. Doppler parameters are co nsistent with abnormal left ventricular relaxation (grade 1 diastolic dysfunction). 2. Right ventricle: The RV pressure during systo le by Doppler is 24 mm Hg. 3. Aortic valve: There is a bioprosthetic valve. There is a Larios Intuity Elite, 23 mm transcatheter valve that i s well seated in the aortic valve position. 4. Mitral valve: There is mild regurgitation. 5. Tricuspid valve: There is trivial regurgitati on. 6. Pericardium, extracardiac: A trivial pericard ial effusion is identified anterior to the heart. Prepared and electronically signed by Thao Benites MD 05/05/2021 10:21 Electronically Signed by Thao Benites MD on at 1022 PATIENT NAME: SIMONA SHEPHERD 695 2021-05-05 09:26:00-00:00 [facility] ([facility]) Clinical Note REPORT#:[id number] REPORT STATUS: Signed DATE:05/05/21 TIME: 925 PATIENT: SIMONA SHEPHERD UNIT #: [id number] ROOM/BED: [place] [address] : 48 AGE: 70 SEX: F ATTEND: Cassandra Mccain MD ADM AUTHOR: Umesh Metz NP * ALL edits or amendments must be made on the ROSTR/computer document * Umesh Metz 05/05/21925: Clinical Note Note: Medical consult # [id number] Ladarius Workman 05/05/212057: Clinical Note Note: Patient seen and examined, c linical data reviewed and I agree with the findings and plan as discussed with and documented by Riki Metz NP Electronically Signed by Umesh Metz REED DIPPER on at 0927 Electronically Signed by Ladarius Workman MD on 1 at 2106 RPT #:[id number] END OF REPORT 2021-05-05 09:26:00-00:00 [id number] [place] 635408 PATIENT NAME: SIMONA SHEPHERD ADMIT DATE: 05/04/21 ACCOUNT NO: [id number] [place] [facility] [place] AGE: 70 REPORT TYPE: CONSULTATION REPORT SEX: F ADMITTING PHYSICIAN:Alfonso Mccain MD ATTENDING PHYSICIAN:Alfonso Mccain MD CONSULTATION DATE: CONSULTING PHYSICIAN: Ladarius Workman MD MEDICAL CONSULTATION CHIEF COMPLAINT: Medical management, status post aortic stenosis procedure. REQUESTING PHYSICIAN: Dr. Mccain. HISTORY OF PRESENT ILLNESS: This is a 70-year-ol d female with a past medical history of aortic stenosis, bile duct cancer, status post chemotherapy, DVT, on Eliquis; hypothyroidism, and hyperlipidemia, came to the hospital for the TAVR. The patient has been experiencing progressively worsening shortness of breath with minimal activities. She was found to have s evere aortic stenosis. [facility] She underwent TAVR. Currently, she is awake, alert, and orient ed x3, following command. She denies any nausea, vomiting, diarrhea, or consti pation. ALLERGIES: NO KNOWN ALLERGIES. PAST MEDICAL HISTORY: Liver cancer, bile duct ca ncer, aortic stenosis, DVT, hypothyroidism, and hypertension. PAST SURGICAL HISTORY: Heart catheterization. FAMILY HISTORY: Noncontributory to illness. SOCIAL HISTORY: Denies any smoking, drinking, or use of illicit drug. MEDICATIONS: Per MAR, reviewed and reconciled. REVIEW OF SYSTEMS: All 14-point systems reviewed . Pertinent positives and negatives are listed in HPI as above, otherwise negative. PHYSICAL EXAMINATION: GENERAL: The patient is awake, following command . VITAL SIGNS: Blood pressure is 117/60, pulse is 76, temperature is 36.4, and oxygen saturation is 99%, and respiratory rate i s 18. HEENT: Normocephalic and atraumatic. NECK: Supple. CARDIOVASCULAR: Regular rhythm. S1 and S2 presen t. RESPIRATORY: The patient is on room air. No sign s of wheezing or crackle. PATIENT NAME: SIMONA SHEPHERD 695 GASTROINTESTINAL: Abdomen is round, soft, and no ntender. Bowel sounds are present. GENITOURINARY: No signs of hematuria. MUSCULOSKELETAL: No signs of clubbing or cyanosi s. ENDOCRINE: Stable. PSYCHIATRIC: Stable. LABORATORY WORK: WBC 4.9, RBC of 2.37, hemoglobi n 7.8, hematocrit 23.7, platelet is 119. Chemistry; sodium is 13 8, potassium 3.9, chloride 106, carbon dioxide 24, anion gap is 12, BUN is 13, creatinine 0.8, glucose is 93, calcium is 8.4, phosphorus 5.0. Total bilirubin 0.40, T 40, ALT 14, alkaline phosphatase is 69. BNP 27. Total protein 6.4, al bumin 3.0. Coagulation study; INR is 1.1, PT 12.3. IMAGING STUDY: Chest x-ray reviewed. There are n o signs of any CHF or pneumonia. ASSESSMENT: 1. Severe aortic stenosis, status post t ranscatheter aortic valve replacement. 2. Shortness of breath secondary to severe aorti c stenosis, improved. 3. Common bile duct cancer. 4. Deep vein thrombosis, on Eliquis. 5. Hypothyroidism. 6. Hypertension. PLAN: 1. Admit to the CCU. 2. Echocardiogram. 3. The patient will go home today. She w ill have her surgery for the bile duct cancer on May 14 at [facility]. 4. Continue home medication. 5. Pain medication. 6. Monitor. After assessment, we discussed the plan with the patient and family at the bedside. Dictated By: Umesh Metz NP for Ladarius Workman MD WT: CON:BOLIVAR/RAPHAEL/ALTHEA Conf#: [id number]/DID#: [id number] Authenticated by Umesh Metz On 05/05/2021 03: 31:29 PM Authenticated by Ladarius Workman MD On 05/05 09:06:17 PM at 0906 Electronically Signed by Umesh Metz NP on at 0331 PATIENT NAME: SIMONA SHEPHERD 695 2021-05-05 06:11:00-00:00 [id number] [address] PATIENT NAME: SIMONA SHEPHERD ADMIT DATE: 1 ACCOUNT NO: [id number] ROOM NO: G.3304 AGE: 70 REPORT TYPE: eELECTROCARDIOGRAM REPORT SEX: F ADMITTING PHYSICIAN:Alfonso Mccain MD ATTENDING PHYSICIAN:Alfonso Mccain MD Order: [id number] Test Reason : SP TVAR Test Date/Time Stamp: MonMay 05 2021 06:11:16 Blood Pressure : / mmHG Vent. Rate : 077 BPM Atrial Rate : 077 BPM P-R Int : 174 ms QRS Dur : 090 ms QT Int : 398 ms P-R-T Axes : 067 030 046 degree s QTc Int : 450 ms Normal sinus rhythm Normal ECG When compared with ECG of 04-MAY-2021 16:48, No significant change was found Confirmed by MD BENITES MOLHAM ([id number]) on 06/20 9:26:07 AM Referred By: Holger Mccain Confirmed by:THAO FERREIRA MD Electronically Signed by Thao Benites MD on 1 08/21/20 at 0926 PATIENT NAME: SIMONA SHEPHERD 695 2021-05-04 23:39:00-00:00 [facility] ([facility] Cardiology Consultation REPORT#:[id number] REPORT STATUS: Signed DATE:05/04/21 TIME: 2338 PATIENT: SIMONA SHEPHERD UNIT #: [id number] ROOM/BED: [place] [address] : 48 AGE: 70 SEX: F ATTEND: Cassandra Mccain MD ADM AUTHOR: Thao Benites MD * ALL edits or amendments must be made on the ROSTR/computer document * History - Adult longitudinal Additional medical history: liver CA Aortic Stenosis DVT hypothyroidism Additional surgical history: heart catheterization 04/25/21 Additional family history: Non contributory Alcohol use: Denies EtOH use Drug use: Denies recreational drugs Smoking status: Smoking status for patients 13 years old or old er: Never Smoker Allergies: Coded Allergies: Sulfa (Sulfonamide Antibiotics) (Mild, HIVES ) Objective General VS/I O: Vital Signs: Date Time Temp Pulse Resp B/P B/P Pulse O2 O2 F low FiO2 Mean Ox Delivery Rate 05/04 1923 97.6 05/04 1640 97.7 74 14 139/63 100 Simple 7 mask 05/04 1022 97.1 80 18 117/59 100 Room air 24 hour I O ending at 0700: 05/04 0700 05/03 1900 Intake Total Output Total Balance Patient 66.8 kg Weight Weight Standing scale Measurement Method PATIENT WEIGHT: Weight (lb): 147 Weight (oz): 4.3 Weight (kg): 66.800 Medications: Active Meds + DC'd Last 24 Hrs Mupirocin (BACTROBAN 2% 22 GM OINTMENT) 1 APPLIC BID NASAL Levothyroxine Sodium (Synthroid) 88 MCG DAILY 06 00 PO Hydralazine HCl (APRESOLINE) 10 MG Q6H PRN PRN I V Phenylephrine HCl (MARY LOU-SYNEPHRINE 1000MCG/NS 10M L INJ) 0 .STK-MED ONE I- JOVANY (DC) Heparin Sodium (HEPARIN SODIUM) 0 .STK-MED ONE . ROUTE (DC) Acetaminophen (TYLENOL) 650 MG Q6H PRN PRN PO Atropine Sulfate (ATROPINE SULFATE 0.1MG/ML SYR) 0.5 MG ASDIR PRN IV Docusate Sodium (COLACE) 100 MG BID PRN PO Hydrocodone Bitart/Acetaminophen (NORCO 5/325) 2 TAB Q4H PRN PRN PO Ondansetron HCl (ZOFRAN) 4 MG Q6H PRN PRN IV Sodium Chloride (SODIUM CHLORIDE 0.9%) 500 ML DIR PRN IV Tramadol HCl (ULTRAM) 50 MG Q4H PRN PRN PO Heparin Sodium/Sodium Chloride (HEPARIN 2,000 UN ITS/NS 1,000mL) 1,000 ML .STK-MED ONE IV (DC) Heparin Sodium/Sodium Chloride (HEPARIN 1,000 UN ITS/NS 500ML) 1,000 ML .STK- MED ONE IV (DC) Cefazolin Sodium (KEFZOL OR ANCEF) 0 .STK-MED ON E .ROUTE (DC) Heparin Sodium/Sodium Chloride (HEPARIN 2,000 UN ITS/NS 1,000mL) 2,000 ML .STK-MED ONE IV (DC) Lidocaine HCl (LIDOCAINE HCL/PF) 0 .STK-MED ONE .ROUTE (DC) Protamine Sulfate (PROTAMINE SULFATE) 0 .STK-MED ONE IV (DC) Dexamethasone Sodium Phosphate (DECADRON) 0 .STK -MED ONE .ROUTE (DC) Dexmedetomidine HCl (PRECEDEX) 0 .STK-MED ONE IV (DC) Ephedrine Sulfate (ePHEDrine sulfate) 0 .STK-MED ONE .ROUTE (DC) Fentanyl Citrate (SUBLIMAZE) 0 .STK-MED ONE .ROU TE (DC) Glycopyrrolate (GLYCOPYRROLATE) 0 .STK-MED ONE . ROUTE (DC) Heparin Sodium (HEPARIN SODIUM) 0 .STK-MED ONE . ROUTE (DC) Lidocaine HCl (XYLOCAINE) 0 .STK-MED ONE .ROUTE (DC) Midazolam HCl (VERSED) 0 .STK-MED ONE .ROUTE (DC ) Ondansetron HCl (ZOFRAN) 0 .STK-MED ONE .ROUTE ( DC) Propofol (DIPRIVAN 200MG/20ML INJECTION) 20 ML . STK-MED ONE IV (DC) Sodium Chloride (SODIUM CHLORIDE 0.9%) 100 ML .S TK-MED ONE IV (DC) Midazolam HCl (VERSED) 0 .STK-MED ONE .ROUTE (DC ) Lidocaine HCl (XYLOCAINE) 0 .STK-MED ONE .ROUTE (DC) Fentanyl Citrate (SUBLIMAZE) 100 MCG PACU Q10MIN PRN PRN IV (DC) Fentanyl Citrate (SUBLIMAZE) 50 MCG PACU Q10MIN PRN PRN IV (DC) Hydralazine HCl (APRESOLINE) 2 MG PACU Q10MIN AK N PRN IV (DC) Hydrocodone Bitart/Acetaminophen (NORCO 5/325) 1 TAB PACU ONCE PO (DC) Hydromorphone HCl (DILAUDID) 1 MG PACU Q10MIN AK N PRN IV (DC) Hydromorphone HCl (DILAUDID) 0.5 MG PACU Q5MIN P RN PRN IV (DC) Insulin Human Lispro (HUMALOG) 0 PACU ONCE PRN S UBQ (DC) Labetalol HCl (LABETALOL HCL) 5 MG PACU Q10MIN P RN PRN IV (DC) Meperidine HCl (DEMEROL 50MG/ML) 12.5 MG PACU ON CE PRN IV (DC) Morphine Sulfate (morphine SULFATE) 2 MG PACU Q1 0MIN PRN PRN IV (DC) Ondansetron HCl (ZOFRAN) 4 MG PACU ONCE PRN IV ( DC) Ropivacaine (NAROPIN 0.5% 150 MG/30mL) 150 MG DIR PRN LOCAL Tramadol HCl (ULTRAM) 50 MG PACU ONCE PO (DC) Cefazolin Sodium (KEFZOL OR ANCEF) 2 GM PREOP USED [employer] SAL[employer] MANAGER IV (CKD) Sodium Chloride (SODIUM CHLORIDE) 20 ML ASDIR IV Physical Exam General appearance: alert, awake, oriented Electronically Signed by Thao Benites MD on at 1151 RPT #:[id number] END OF REPORT 2021-05-04 16:48:00-00:00 [id number] [address] PATIENT NAME: SIMONA SHEPHERD ADMIT DATE: 05/04/21 ACCOUNT NO: [id number] [place]: [facility] [place] AGE: 70 REPORT TYPE: eELECTROCARDIOGRAM REPORT SEX: F ADMITTING PHYSICIAN:Alfonso Mccain MD ATTENDING PHYSICIAN:Alfonso Mccain MD Order: [id number] Test Reason : S/P TAVR Test Date/Time Stamp: MonMay 04 2021 16:48:16 Blood Pressure : / mmHG Vent. Rate : 076 BPM Atrial Rate : 076 BPM P-R Int : 182 ms QRS Dur : 092 ms QT Int : 396 ms P-R-T Axes : 072 053 046 degree s QTc Int : 445 ms Normal sinus rhythm Normal ECG When compared with ECG of 03-MAY-2021 10:41, No significant change was found Confirmed by MD BENITES MOLHAM ([id number]) on 06/20 9:24:37 AM Referred By: Vinny Cuba Confirmed by:THAO FERREIRA MD Electronically Signed by Thao Benites MD on 1 08/21/20 at 0924 PATIENT NAME: SIMONA SHEPHERD 695 2021-05-04 16:47:00-00:00 [facility] ([facility]) DT Operative Note REPORT#:[id number] REPORT STATUS: Signed DATE:05/04/21 TIME: 1646 PATIENT: SIMONA SHEPHERD UNIT #: [id number] ROOM/BED: 3304-1 : 48 AGE: 70 SEX: F ATTEND: Cassandra Mccain MD ADM AUTHOR: Alfonso Mccain MD * ALL edits or amendments must be made on the ROSTR/computer document * Operative Report Operative Note Note: Preoperative diagnosis: Severe symptomatic aorti c stenosis Postoperative diagnosis: Severe symptomatic aort ic stenosis Procedure: 1.Transcatheter aortic valve replacem ent (TAVR) utilizing # 23 Larios's Jass S3 Ultra pe ricardial valve via transfemoral approach with MAC. 2. Ascending aortogram 3. Placement of temporary pacing wire 4. ProGlide and Angioseal closure of right comm on femoral artery Surgeon: Oracio Mccain MD Fill Plant Operator: MD Lisandro Landaverde MD Anaesthesia: MAC Estimated blood loss: 20 cc Indication: Ms Shepherd is a pleasant 70-year-old, male with severe symptomatic aortic stenosis. She was investigated an d was found to be a suitable candidate for TAVR. After do preop counseling she was brou ght to the hybrid room today for TAVR Findings: 1. Severe calcification of aortic valv e 2. The delivery system was passed without diffi culty into the left ventricular outflow tract for deployment. 3. A 23 mm Jass S3 Ultra valve was required 4. Post replacement TTE revealed no paravalvula r leak 5. Patient had good Doppler signals in both low er extremities following the procedure. Procedure in detail: Further details will be dic tated by Dr. Cuba as he was the reduction furnace operator. The pat ient was brought into the hybrid room. A timeout procedure was performed which confirme d the patient's name medical record number and the procedure to be pe rformed. The patient was placed supine on the operating table. The chest, abdomen, and groins were prepped and draped in standard surgical fashion. 1% lidocaine was used to anesthetize th e area over the right femoral artery, and left femoral artery and vein. After placement of appropriate sheath patient was heparinized, to maint ain and a ACT more than 250 second. An aortic root shot was performed, noting t he optimal angle for deployment of the valve. This confirmed the position already deter mined by CT angiogram 3D reconstruction. Subsequently, the 23 mm Larios Jass S3 Ultra transcatheter valve was placed into the sheath in the right fe moral artery and brought up through the aortic valve and placed in the correct position. This was confirmed by the heart valve team. Subsequently the rapid ventricular pacing was performed and the valve was deployed in the aort ic annulus appropriately. The Cordis and sheath were pulled back. Postplacemen t transthoracic echo revealed good placement of the valve with no aortic insuf ficiency. A pigtail catheter was placed into the left walt tricle and simultaneous LV and aortic pressures were obtained. The mean gradient was minimal. Subsequ ently, the sheaths were removed, the right common fe moral artery was closed with a one ProGlide and one Angioseal device and the left common fem oral artery was closed using Angioseal device. Sterile dressings were applied. I was present as co-surgeon in conjuncti on with Dr Cuba and Dr. Mckinley. Dr. Cuba will dictate his portion in [facility]. The patient tolerated the procedure well and was taken to the coronary care unit in stable condition. Sponge, needle and instrument count were correct. at 1652 RPT #:[id number] END OF REPORT 2021-05-04 13:29:00-00:00 [facility] ([facility]) Clinical Note REPORT#:[id number] REPORT STATUS: Signed DATE:05/04/21 TIME: 1328 PATIENT: SIMONA SHEPHERD UNIT #: [id number] ROOM/BED: [place] [address] : 48 AGE: 70 SEX: F ATTEND: Ab john Mccain MD ADM AUTHOR: Umesh Metz NP * ALL edits or amendments must be made on the el [employer]/computer document * Umesh Metz 05/04/21 1329: Clinical Note Note: Medical consult # [id number] Ladarius Workman 05/05/212057: Clinical Note Note: Patient seen and examined, c linical data reviewed and I agree with the findings and plan as discussed with and documented by Riki Metz NP Electronically Signed by Umesh Metz NP on at 0926 Electronically Signed by Ladarius Workman MD on 1 at 2105 RPT #:[id number] END OF REPORT 2021-05-04 10:33:00-00:00 [facility]) Cardiothoracic Surgery Consult REPORT#:[id number] REPORT STATUS: Signed DATE:05/04/21 TIME: 1033 PATIENT: SIMONA SHEPHERD UNIT #: [id number] ROOM/BED: [place] [address] : 48 AGE: 70 SEX: F ATTEND: Cassandra Mccain MD ADM AUTHOR: Bob Desir REED DIPPER * ALL edits or amendments must be made on the ROSTR/computer document * Bob Desir 05/04/21 1033: History of Present Illness HPI Chief complaint: Aortic Stenosis PCP: PCP: Serafin Brown MD Requesting Clinician Dr. Cuba HPI: Ms Simona Underwood is a pleasant 70-year-old femal e with past medical history significant for aortic steno sis, bile duct cancer (chemotherapy), DVT(on eliquis ), and hypothyroidism has be en experiencing progressively worsening shortness of breath, even with minimal activities. Patient petty s known aortic stenosis and followed up with her cardiol ogist. Repeat echocardiogram revealed severe aortic stenosis. CV surgery consulted to evaluate need for intervention on aortic valve. Informant/Historian: Patient Previous records History Additional Medical History: liver CA Aortic Stenosis DVT hypothyroidism Additional Surgical History: heart catheterization 04/25/21 Additional Family History Non contributory Alcohol Use Denies EtOH use Drug Use Denies recreational drugs Smoking status: Smoking status for patients 13 years old or old er: Never Smoker Allergies: Coded Allergies: Sulfa (Sulfonamide Antibiotics) (Mild, HIVES ) Review of Systems Review of Systems Constitutional: Reports: fatigue. Denies: chills, fever. Skin: Denies: rash, swelling. Eyes: Denies: redness, discharge. Respiratory: Denies: SOB, wheezing. Cardiovascular: Denies: chest pain, MIRELES (dyspnea on exertion). GI: Denies: diarrhea, nausea, vomiting. Musculoskeletal: Denies: extremity pain, extremity swelling. Objective Physical Exam VS/I O: Last Documented: Result Date Time Pulse Ox 100 05/04 1022 B/P 117/59 05/04 1022 O2 Delivery Room air 05/04 1022 Temp 97.1 05/04 1022 Pulse 80 05/04 1022 Resp 18 05/04 1022 24 hour I O ending at 0700: 05/04 0700 05/03 1900 Intake Total Output Total Balance Patient 147 lb Weight Weight Standing scale Measurement Method PATIENT WEIGHT: Weight (lb): 147 Weight (oz): 4.3 Weight (kg): 66.800 General appearance: alert, awake, oriented HEENT: pupils reactive to light, sclera clear Neck: full range of motion, non-tender Cardiovascular: normal heart sounds, regular rat e rhythm Respiratory: aerating well, clear to auscultatio n Abdomen: soft, non-tender Extremities: dry, moves all Musculoskeletal: full range of motion Neuro/GOLF BALL WINDER: alert, oriented X 3 Skin: dry, intact Diagnosis, Assessment Plan Free Text A P: Ms Simona Underwood is a pleasant 70-year-old femal e with past medical history significant for aortic stenosis, liver c ancer (chemotherapy), DVT(on eliquis), and hypothyroidism has been experiencing progres sively worsening shortness of breath, even with minimal activities. Patient petty s known aortic stenosis and followed up with her cardiol ogist. Repeat echocardiogram revealed severe aortic stenosis with an KATIE 0.8cm2, Mean gradient of 37.08 and jet velocity of 2.19m/s. CV surgery consulted to evaluate need for interv ention on aortic valve. Patient seen and examined by Dr. Mccain. Echo mita stevenson. Patient has severe symptomatic aortic stenosis and will benefit from intervention on aortic valve. Given patient's age, frailty and other comorbidi ties, she is at high risk for surgical aortic valve replac ement. Her interest would best be served undergoing transcatheter aortic valve implantation(KAREN). Varghese irizarry was worked up and her case was discussed in the structural heart confe rence. She was found to be a suitable candidate for KAREN and has been admitted to the hospital today for the same. Thank you Dr. Cuba for this consult Alfonso Mccain 05/04/21 8433: Attestations Physician Attestation Agree w/findings plan: I have seen and examined Simona Shepherd. I agree with the findings and plan as documented by LAINE Martin. Briefly, 70-year-old female with cholangiocarcin trent of the liver awaiting hepatic resection and severe aortic stenosis. Lev lafleur was worked up and presented in the structural heart conference and found to be a suitable candidate for TAVR. She [facility]. Procedure, risk, benefit, alternatives including SAVR, STS risk score, and complication explained to the patient Electronically Signed by Bob Desir NP on at 1442 at 1647 RPT #:[id number] END OF REPORT 2021-05-03 10:41:00-00:00 [id number] [place] [address] PATIENT NAME: SIMONA SHEPHERD ADMIT DATE: ACCOUNT NO: [id number] ROOM NO: AGE: 70 REPORT TYPE: eELECTROCARDIOGRAM REPORT SEX: F ADMITTING PHYSICIAN: ATTENDING PHYSICIAN:Vinny Cuba MD Order: [id number] Test Reason : PREOP Test Date/Time Stamp: MonMay 03 2021 10:41:50 Blood Pressure : / mmHG Vent. Rate : 078 BPM Atrial Rate : 078 BPM P-R Int : 178 ms QRS Dur : 084 ms QT Int : 384 ms P-R-T Axes : 072 066 058 degree s QTc Int : 437 ms Normal sinus rhythm Normal ECG No previous ECGs available Confirmed by YG JOYCE ([id number]) on 05/03/2021 1 0:55:08 AM Referred By: Vinny Cuba Confirmed by:YG Fagan [facility] Electronically Signed by Yg Joyce MD on at 1055 PATIENT NAME: SIMONA SHEPHERD 695 2021-04-29 09:07:00-00:00 [id number] [place] [address] PATIENT NAME: SIMONA SHEPHERD ADMIT DATE: 04/27/21 ACCOUNT NO: [id number] ROOM NO: AGE: 70 REPORT TYPE: PULMONARY FUNCTION REPORT SEX: F ADMITTING PHYSICIAN: ATTENDING PHYSICIAN:Vinny Cuba MD STUDY DATE: SUMMARY: The spirometry FVC is 116% of predicted . FEV1 is 120% of predicted, ratio of 79 and normal. No response to bronchodi lator. Total lung capacity 110%. Diffusion capacity 71%, corrected to the volume. FULL PULMONARY FUNCTION TEST: Within nor mal limits. There is no obstructive or restrictive impairment. Dictated By: Amy Norton MD WT: PFT:GDAVID/DATIFFANIA/NTS Conf#: [id number]/DID#: [id number] Authenticated by AMY NORTON MD On 05/10/2021 08:22:56 AM Electronically Signed by Amy Norton MD on 07/30 at 0822 PATIENT NAME: SIMONA SHEPHERD 530
--- NOTE | 2023-03-13 11:55 | RAD REPORT ---
EXAM DESCRIPTION: RAD - Hip Left 2 View - 03/13/2023 11:47 am CLINICAL HISTORY: Left hip pain status post injury FINDINGS: Mildly displaced subcapital fracture left femur. No dislocation
--- NOTE | 2023-03-13 12:20 | RAD REPORT ---
EXAM DESCRIPTION: CT - Head C Spine Mpr Wo Con - 03/13/2023 11:35 am CLINICAL HISTORY: Head and neck injury status post fall. Head and neck pain COMPARISON: None. TECHNIQUE: Computed axial tomography of the head and cervical spine was obtained. Sagittal and coronal reconstruction was performed. All CT scans are performed using dose optimization technique as appropriate and may include automated exposure control or mA/KV adjustment according to patient size. FINDINGS: An intracranial bleed is not seen. The ventricles are normal in caliber. No significant hypodensity within the brain. An extra-axial fluid collection is not noted. Fluid within the visualized sinuses and mastoids is not seen A cervical fracture is not visualized. No dislocation is noted. Mild anterior subluxation C3 on C4. Marked spondylosis C4-5 and C5-6. Slight anterior subluxation C7 on T1. IMPRESSION: No acute intracranial abnormality is seen. A cervical fracture is not visualized. Mild anterior subluxation C3 on C4 probably chronic given significant soft tissue swelling is not see n. If the patient continues to have symptoms to suggest intracranial /spinal cord/ligamentous pathology then MRI would be recommended
[2023-03-13 12:29] LABS: Absolute Lymphocytes (CBC) 0.9 K/uL (0.7-4.9); Hematocrit 28.9 % (36.0-45.0); Lymphocytes % 16.2 % (15.3-44.8); MCV 82.1 fL (80-100); MPV 10.2 fL (7.6-11.3); Platelets 107 thou/uL (152-406); RBC Red Blood Cell Count 3.52 M/uL (3.86-4.86)
[2023-03-13 12:47] LABS: Albumin 3.5 g/dL (3.4-5.0); Bilirubin Total 0.4 mg/dL (0.2-1.0); Potassium 3.4 mEq/L (3.5-5.1); Protein, Total 7.9 g/dL (6.4-8.2); Troponin High Sensitivity 5.6 pg/mL (<58.9)
--- NOTE | 2023-03-13 13:12 | EDPHYS ---
Physician Documentation [facility] Name: Simona Klein Age: 72 yrs Sex: Female : 1950 Arrival Date: 03/13/2023 Time: 10:38 Bed 2 Private MD: ED Physician Wesley Martinez HPI: 03/13 11:21 This 72 yrs old Female presents to ER via Wheelchair with complaints of Fall snw Injury. 11:21 Details of fall: The patient fell from an upright position, chasing the dog, fell in snw driveway. Onset: The symptoms/episode began/occurred suddenly, yesterday. Severity of symptoms: At their worst the symptoms were moderate, severe. The patient has not experienced similar symptoms in the past. It is unknown whether or not the patient has recently seen a physician, sees Dr. Cuba and Dr. Brown. On Eliquis. 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 - Social history:: Smoking status: Patient denies any tobacco usage or history of. ROS: 11:20 Constitutional: Negative for fever, chills, and weight loss, Eyes: Negative for injury, snw pain, redness, and discharge, ENT: Negative for injury, pain, and discharge, Neck: Negative for injury, pain, and swelling, Cardiovascular: Negative for chest pain, palpitations, and edema, Respiratory: Negative for shortness of breath, cough, wheezing, and pleuritic chest pain, Abdomen/GI: Negative for abdominal pain, nausea, vomiting, diarrhea, and constipation, Back: Negative for injury and pain, : Negative for injury, bleeding, discharge, and swelling, Skin: Negative for injury, rash, and discoloration, Neuro: Negative for headache, weakness, numbness, tingling, and seizure, Psych: Negative for depression, anxiety, suicide ideation, homicidal ideation, and hallucinations. 11:20 MS/extremity: Positive for injury or acute deformity, decreased range of motion, pain, of the left hip. Exam: 11:20 Constitutional: This is a well developed, well nourished patient who is awake, alert, snw and in no acute distress. Head/Face: Normocephalic, atraumatic. Eyes: Pupils equal round and reactive to light, extra-ocular motions intact. Lids and lashes normal. Conjunctiva and sclera are non-icteric and not injected. Cornea within normal limits. Periorbital areas with no swelling, redness, or edema. ENT: Nares patent. No nasal discharge, no septal abnormalities noted. Tympanic membranes are normal and external auditory canals are clear. Oropharynx with no redness, swelling, or masses, exudates, or evidence of obstruction, uvula midline. Mucous membranes moist. Neck: Trachea midline, no thyromegaly or masses palpated, and no cervical lymphadenopathy. Supple, full range of motion without nuchal rigidity, or vertebral point tenderness. No Meningismus. Chest/axilla: Normal chest wall appearance and motion. Nontender with no deformity. No lesions are appreciated. Cardiovascular: Regular rate and rhythm with a normal S1 and S2. No gallops, murmurs, or rubs. Normal PMI, no JVD. No pulse deficits. Respiratory: Lungs have equal breath sounds bilaterally, clear to auscultation and percussion. No rales, rhonchi or wheezes noted. No increased work of breathing, no retractions or nasal flaring. Abdomen/GI: Soft, non-tender, with normal bowel sounds. No distension or tympany. No guarding or rebound. No evidence of tenderness throughout. Back: No spinal tenderness. No costovertebral tenderness. Full range of motion. Skin: Warm, dry with normal turgor. Normal color with no rashes, no lesions, and no evidence of cellulitis. Neuro: Awake and alert, GCS 15, oriented to person, place, time, and situation. Cranial nerves II-XII grossly intact. Motor strength 5/5 in all extremities. Sensory grossly intact. Cerebellar exam normal. Normal gait. Psych: Awake, alert, with orientation to person, place and time. Behavior, mood, and affect are within normal limits. 11:20 Musculoskeletal/extremity: Extremities: grossly normal except: noted in the left hip: decreased ROM, tenderness, ROM: limited active range of motion due to pain, limited passive range of motion due to pain, in the left hip, Circulation is intact in all extremities. Sensation intact. ecchymosis to left elbow. Vital Signs: 11:12 BP 147 / 75; Pulse 78; Resp 15; Temp 98.1; Pulse Ox 100% ; ll1 12:23 Pulse 73; Resp 18; Pulse Ox 100% on R/A; ld1 13:01 BP 169 / 82; Pulse 82; Resp 18; Pulse Ox 98% on R/A; ld1 MDM: 11:09 Patient medically screened. snw 12:33 ED course: bovine valve. snw 13:05 Differential diagnosis: contusion, fracture, sprain, strain. Data reviewed: vital snw signs, nurses notes, lab test result(s), radiologic studies. Management of patient was discussed with the following: . 13:09 Management of patient was discussed with the following: Dr. Carbajal (Ortho) and Dr. jose Valerio (Hospitalist). They kindly accept pt in transfer.. 03/13 11:59 Order name: CBC with Diff; Complete Time: 12:30 snw 03/13 11:59 Order name: CMP; Complete Time: 12:54 snw 03/13 11:59 Order name: Troponin High Sensitivity; Complete Time: 12:54 snw 03/13 11:15 Order name: Hip Left 2 View XRAY; Complete Time: 11:58 snw 03/13 11:24 Order name: CT Head C Spine; Complete Time: 12:23 snw 03/13 11:59 Order name: EKG; Complete Time: 11:59 snw 03/13 11:59 Order name: EKG - Nurse/Tech; Complete Time: 12:21 snw 03/13 11:59 Order name: SL; Complete Time: 12:23 snw 04 12:34 Order name: Abraham; Complete Time: 13:00 snw EC:20 Rate is 76 beats/min. Rhythm is regular. QRS [place] is Normal. VT interval is normal. QRS snw interval is normal. QT interval is normal. No Q waves. Clinical impression: NSR w/ Non-specific ST/T Changes. Administered Medications: 13:15 Drug: morphine IVP or IV 4 mg Route: IVP; Infused Over: 4 mins; Site: left antecubital; mb9 13:41 Follow up: Response: No adverse reaction mb9 Disposition: 16:35 Co-signature as Attending Physician, Wesley Martinez MD I reviewed the patient's care rn provided by the Advanced Practice Provider and agree with the diagnosis and treatment plan. Disposition Summary: 03/13/23 13:11 Transfer Ordered Transfer Location: [facility] snw Reason: Specialty snw Condition: Stable snw Problem: new snw Symptoms: are unchanged snw Accepting Physician: Dr. Valerio(03/13/23 14:35) mb9 Diagnosis - Left subcapital femur fracture snw - Fall on same level from slipping, tripping and stumbling with subsequent striking snw against object - on Eliquis(03/13/23 13:11) Forms: - Medication Reconciliation Form snw - SBAR form snw Signatures: Dispatcher [employer] EDMS Nilam Wolff, SAND CASTER-C SAND CASTER-Csnw Wesley Martinez MD MD rn Leal, Jahala, RN RN jl7 Simona Hdz, RN RN mb9 Corrections: (The following items were deleted from the chart) 11:21 11:20 Musculoskeletal/extremity: Extremities: grossly normal except: noted in the left snw hip: decreased ROM, tenderness, snw 13:11 13:11 Dr. Valerio snw snw 13:11 13:11 Fall on same level from slipping, tripping and stumbling with subsequent striking snw against object snw 14:35 13:11 Dr. Valerio snw mb9
--- NOTE | 2023-03-13 13:12 | ER ---
Nurse's Notes [facility] Name: Simona Klein Age: 72 yrs Sex: Female : 1950 Arrival Date: 03/13/2023 Time: 10:38 Bed 2 Private MD: Diagnosis: Fall on same level from slipping, tripping and stumbling with subsequent striking against object-on Eliquis;Left subcapital femur fracture Presentation: 03/13 11:12 Chief complaint: Patient states: Mechanical fall yesterday, reports left hip/groin jl7 pain, difficulty ambulating. Coronavirus screen: At this time, the client does not indicate any symptoms associated with coronavirus-19. Ebola Screen: No symptoms or risks identified at this time. Initial Sepsis Screen: Does the patient meet any 2 criteria? No. Patient's initial sepsis screen is negative. Does the patient have a suspected source of infection? No. Patient's initial sepsis screen is negative. Risk Assessment: Do you want to hurt yourself or someone else? Patient reports no desire to harm self or others. Onset of symptoms was March 12, 2023. 11:12 Method Of Arrival: Wheelchair jl7 11:12 Acuity: CHANEL 3 jl7 Triage Assessment: 11:13 General: Appears in no apparent distress. uncomfortable, Behavior is calm, cooperative, jl7 appropriate for age. Pain: Complains of pain in left hip. 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 - Social history:: Smoking status: Patient denies any tobacco usage or history of. Screenin:25 [facility] ED Fall Risk Assessment (Adult) Score/Fall Risk Level 3 or more points = High ll1 Risk Oriented to surroundings, Maintained a safe environment, Educated pt \T\ family on fall prevention, incl call for assistance when getting out of bed, Provided non-skid footwear, Hourly rounding (assess needs \T\ fall precautionary measures) done, Utilized family, sitter, or virtual analytical chemistry teacher as indicated. Abuse screen: Denies threats or abuse. Nutritional screening: No deficits noted. Tuberculosis screening: No symptoms or risk factors identified. Assessment: 11:26 Reassessment: No changes from previously documented assessment. Patient and/or family ll1 updated on plan of care and expected duration. Pain level reassessed. 12:42 Reassessment: No changes from previously documented assessment. Patient and/or family mb9 updated on plan of care and expected duration. Pain level reassessed. Patient is alert, oriented x 3, equal unlabored respirations, skin warm/dry/pink. 13:01 Reassessment: Patient appears in no apparent distress at this time. No changes from ld1 previously documented assessment. Patient and/or family updated on plan of care and expected duration. Pain level reassessed. Patient is alert, oriented x 3, equal unlabored respirations, skin warm/dry/pink. 13:59 Reassessment: report called to transferring nurse SEDRICK Gonzalez. mb9 14:34 Reassessment: No changes from previously documented assessment. Patient and/or family mb9 updated on plan of care and expected duration. Pain level reassessed. Patient is alert, oriented x 3, equal unlabored respirations, skin warm/dry/pink. 14:34 Reassessment: Gave report to [facility]. mb9 Vital Signs: 11:12 BP 147 / 75; Pulse 78; Resp 15; Temp 98.1; Pulse Ox 100% ; ll1 12:23 Pulse 73; Resp 18; Pulse Ox 100% on R/A; ld1 13:01 BP 169 / 82; Pulse 82; Resp 18; Pulse Ox 98% on R/A; ld1 ED Course: 10:40 Patient arrived in ED. ts1 10:47 Nilam Wolff FNP-C is PHCP. snw 10:47 Wesley Martinez MD is Attending Physician. snw 11:05 Arm band placed on Patient placed in an exam room, on a stretcher. ll1 11:13 Triage completed. jl7 11:25 Manny Villavicencio, SEDRICK is Primary Nurse. ll1 11:26 Patient has correct armband on for positive identification. Bed in low position. Call ll1 light in reach. Cardiac monitoring not applicable on this patient. 11:35 CT Head C Spine In Process Unspecified. EDMS 11:49 Hip Left 2 View XRAY In Process Unspecified. EDMS 12:23 Inserted saline lock: 20 gauge in left antecubital area, using aseptic technique. Blood ld1 collected. 12:45 No provider procedures requiring assistance completed. mb9 13:00 Abraham cath inserted, using sterile technique, 16 Fr., by ia, balloon inflated, to mb9 gravity drainage, urine specimen collected. returned clear yellow urine. Patient tolerated well. 14:35 Patient transferred, IV remains in place. mb9 Administered Medications: 13:15 Drug: morphine IVP or IV 4 mg Route: IVP; Infused Over: 4 mins; Site: left antecubital; mb9 13:41 Follow up: Response: No adverse reaction mb9 Medication: 12:45 VIS not applicable for this client. mb9 Outcome: 13:11 ER care complete, transfer ordered by MD. garcia 14:35 Transferred to [facility] completed. mb9 14:35 Condition: stable 14:35 Instructed on the need for transfer. 14:35 Patient left the ED. mb9 Signatures: Dispatcher [employer] EDMS Nilam Wolff, ENTRY LEVEL CHEMIST-C ENTRY LEVEL CHEMIST-Csnw Dimple Davalos RN RN jl7 Manny Villavicencio RN RN ll1 Andie Mosley RN RN ld1 Simona Hdz RN RN mb9 Freda Morales, NIKITA PAS ts1 Corrections: (The following items were deleted from the chart) 11:56 11:12 BP 147 / 75; Pulse 78bpm; Resp 15bpm; Pulse Ox 100%; jl7 ll1
[2023-03-13] MEDS ORDERED: MORPHINE 4 MG/ML SYR ONE (13:23)
[2023-03-13 14:40] VITALS: TEMP 98.1
[2023-03-13 14:42] VITALS: BP 169/82; O2SAT 98
--- NOTE | 2023-03-14 16:47 | EKG ---
Test Date: 2023-03-13 Test Time: 12:18:59 Operations Intern: BECCA MEASUREMENT RESULTS: Intervals: Rate: 76 AL: 176 QRSD: 84 QT: 380 QTc: 427 [place]: P: 83 AL: 176 QRS: 79 T: 53 INTERPRETIVE STATEMENTS: Normal sinus rhythm Normal ECG Compared to ECG 01/18/2021 16:40:45 No significant changes Electronically Signed On 03-14-23 16:43:35 CDT by Vinny Cuba
== END 2023-03-13 14:35 | disposition short-term general hospital (02) ==
LOC: ER 10:38
DX: S72.012A Unspecified intracapsular fracture of left femur, initial encounter for closed fracture (principal); W01.198A Fall on same level from slipping, tripping and stumbling with subsequent striking against other object, initial encounter; Z79.01 Long term (current) use of anticoagulants; Z88.2 Allergy status to sulfonamides
CPT/HCPCS: 36415; 51702; 70450; 72125; 80053; 84484; 85025; 93005; 96374; 99285